=== PATIENT | female | born 1965 | race Caucasian/White ===

== ENCOUNTER → 2016-03-02 | Outpatient (CLI) | payer BC ==
[~2016-03-02] MED LIST: ADAL20KI; ASPI-391 PO; CHOL100010 PO; FOLI5CAP; HYDR200T5 PO; IBUP1CAP9 PO; LEVO75TA PO; OPTIRAY 320 IV PRN; POLY335019 PO; POTA99TA3 PO; PRAM0.129 PO; PREG1CAP28 PO; TOPI50TA24 PO
--- NOTE | 2016-03-02 15:32 | DIAGNOSTIC IMAGING REPORT ---
CT ABD/PELVIS IV AND ORAL CONT CLINICAL HISTORY: Generalized abdominal pain with abnormal laboratory values COMPARISON STUDY: None. TECHNIQUE: Following the IV administration of 100 mL of Optiray-320, CT scan of the abdomen and pelvis was performed from the lung bases to the proximal femurs. Images are reviewed in the axial, sagittal, and coronal planes. IV contrast was administered without complication. CT DOSE: 268.00 mGy.cm FINDINGS: Lower chest: The heart is normal in size and configuration, without pericardial effusion. The lung bases and pleural spaces are clear. There is a 2 cm mass at the level of the right cardiophrenic angle. 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 Liver: The contrast-enhanced liver is normal in size, contour, and attenuation. There is no intrahepatic biliary ductal dilatation. The hepatic veins and portal veins are patent. Gallbladder: Unremarkable. Spleen: Normal in size and attenuation. Pancreas: Unremarkable. Adrenal glands: Unremarkable. Kidneys: There is a 6 mm left renal hypodensity, consistent with a cyst. Bowel: There are no transition zones indicate bowel obstruction. There is no evidence of acute diverticulitis. The appendix appears normal. Peritoneum: There is no intraperitoneal free air or abdominal ascites. Vasculature: The abdominal aorta is normal in course and caliber. Adenopathy: None. Pelvic viscera: Several left ovarian follicles measuring up to 19 mm are visualized. Skeletal structures: No destructive osseous lesions are seen. IMPRESSION: 1. No evidence of bowel obstruction. No evidence of free air 2. No evidence of pathologic adenopathy 3. No acute inflammatory changes. No evidence of acute appendicitis. No evidence of diverticulitis. 4. 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 03/02/2016 3:30 PM Dictated Date/Time: 03/02/2016 3:22 PM
== END | disposition home or self-care (01) ==
LOC: C.CTS 14:51
PROVIDERS: ATTEND Internal Medicine Rheumatology
DX: R10.9 Unspecified abdominal pain (principal); R82.90 Unspecified abnormal findings in urine; N28.9 Disorder of kidney and ureter, unspecified; R22.2 Localized swelling, mass and lump, trunk

== ENCOUNTER → 2017-06-16 | Outpatient (CLI) | payer BC ==
[~2017-06-16] MED LIST changes: +CLR10 PO; -IBUP1CAP9 PO; +METO-217 PO; -OPTIRAY 320 IV PRN; -POLY335019 PO; +PRAM0.1212 PO; -PRAM0.129 PO; +PRED-301 PO; -PREG1CAP28 PO; +SENNTAB23 PO; +SPIR25TA PO; +TOPI1CAP27 PO; -TOPI50TA24 PO
--- NOTE | 2017-06-16 11:33 | DIAGNOSTIC IMAGING REPORT ---
MRI OF THE LUMBAR SPINE WITHOUT IV CONTRAST CLINICAL HISTORY: Low back pain. COMPARISON STUDY: Abdominal CT dated 03/02/2016. TECHNIQUE: MRI of the lumbar spine is performed utilizing various T1 and T2-weighted sequences in the axial and sagittal planes. IV contrast was not administered for this examination. FINDINGS: Lumbar spine: Vertebral body height and alignment are maintained throughout the lumbar spine. Tiny hemangiomas are seen in the bodies of T11, L1, L2, L3, L4, and L5. No destructive bony lesion is suggested. The transverse and spinous processes appear intact. There is no evidence of spondylolysis. Intervertebral discs: Degenerative disc desiccation is seen throughout the lumbar spine. There is only mild loss of height at L2-L3 and L3-L4. Spinal cord: The visualized spinal cord is normal in morphology and signal intensity. The conus medullaris terminates at the level of L1. The nerve roots of the cauda equina are normal in morphology. L1-L2: Unremarkable. L2-L3: There is minimal posterior disc bulge eccentric to the left. The central canal and neural foramina are patent. There are bilateral facet joint effusions. L3-L4: There is a left lateral disc bulge with annular fissure. This causes left-sided subarticular stenosis and may abut the exiting left L3 nerve root. The central canal and neural foramina are patent. Mild facet arthropathy is of no consequence. There are bilateral facet joint effusions. L4-L5: There is broad-based posterior disc bulge with annular fissure. In conjunction with hypertrophy of the ligamentum flavum, this causes mild central canal stenosis with a minimum AP canal diameter of 9 mm. There is bilateral subarticular stenosis, left greater than right. The disc bulge abuts the transiting bilateral L5 nerve roots. Facet arthropathy is of no consequence. The neural foramina are patent. Facet joint effusions are noted. L5-S1: There is a small posterior disc bulge. There is no significant acquired compromise of the central canal. The neural foramina are patent. Mild facet arthropathy is of no consequence. Sacrum: The visualized sacrum is normal in morphology and signal intensity. Soft tissues: The paraspinous soft tissues are within normal limits. The imaged retroperitoneal structures are grossly unremarkable but incompletely evaluated. IMPRESSION: 1. Mild multilevel lumbosacral spondylosis as above. There is mild acquired compromise of the central canal at L4-L5. See discussion for detailed level by level analysis. 2. No destructive bony process is identified. Dictated: 06/16/2017 10:10 AM Transcribed: 06/16/2017 11:33 AM [email or web address] Electronically signed by: Alex Jones M.D. 06/16/2017 11:50 AM Dictated Date/Time: 06/16/2017 10:10 AM
== END | disposition home or self-care (01) ==
LOC: C.MRI 09:26
PROVIDERS: ATTEND Internal Medicine Rheumatology
DX: R29.2 Abnormal reflex (principal); M54.5 Low back pain; M06.09 Rheumatoid arthritis without rheumatoid factor, multiple sites; M35.00 Sjogren syndrome, unspecified; Z51.81 Encounter for therapeutic drug level monitoring; E55.9 Vitamin D deficiency, unspecified; R53.1 Weakness; M47.817 Spondylosis without myelopathy or radiculopathy, lumbosacral region

== ENCOUNTER → 2017-10-04 | Outpatient (CLI) | payer BC ==
[~2017-10-04] MED LIST changes: -FOLI5CAP; +GABA-113 PO; -HYDR200T5 PO; -METO-217 PO; +VRP40 PO
[2017-10-04 09:34] LABS: BASO % 0.4 %; BASO ABS # 0.02 K/uL (0-0.2); EOS % 0.2 %; EOS ABS # 0.01 K/uL (0-0.5); HEMATOCRIT 39.2 % (37-47); HEMOGLOBIN 12.6 g/dL (12.0-16.0); IG# 0.01 K/uL (0.00-0.02); LYMPH % 40.9 %; LYMPH ABS # 1.82 K/uL (1.2-3.4); MEAN CELL VOLUME 88.3 fL (80-100); MEAN CORPUSCULAR HEMOGLOBIN 28.4 pg (25-34); MONO % 11.2 %; NEUT % 47.1 %; NEUT ABS # 2.09 K/uL (1.4-6.5); PLATELET COUNT 300 K/uL (130-400); RED CELL DISTRIBUTION WIDTH CV 14.1 % (11.5-14.5); RED CELL DISTRIBUTION WIDTH SD 46.1 fL (36.4-46.3); WHITE BLOOD COUNT 4.45 K/uL (4.8-10.8)
[2017-10-04 09:58] LABS: MEAN CORPUSCULAR HGB CONC 32.1 g/dl (32-36)
== END | disposition home or self-care (01) ==
LOC: C.LAB 09:13
PROVIDERS: ATTEND Physician Assistant
DX: Z01.812 Encounter for preprocedural laboratory examination (principal)

== ENCOUNTER 2021-10-18 11:02 | Inpatient (IN) ==
[2021-10-18] MEDS ORDERED: MoRPHine SULFATE 4 MG/ML 1 ML CARP\\VIAL IV STA (11:31)
[2021-10-18] MEDS ORDERED: ONDANSETRON INJ 2 MG/ML 2 ML VIAL IV STA (11:31)
[2021-10-18] MEDS ORDERED: SODIUM CHLORIDE 0.9% 500 ML IV STA (11:31)
--- NOTE | 2021-10-18 11:33 | Emergency Department Note ---
Impression & Plan Bulging lumbar disc ADMIT ED Provider Note HPI: The patient is a 56-year-old female who presents to the emergency department with a chief complaint of left hip pain and back pain. This is the patient's second presentation in the past 3 days for the same pain. Patient had CT imaging performed on her last visit this past Tuesday, this did not show any evidence of acute fracture, did show evidence of degenerative disease in the lumbar spine. Patient states that her pain is acutely worsened over the past several days. Patient states that she is having some issues with incomplete voiding. She denies any recent fevers. On arrival to the ED the patient is in mild distress secondary to pain but she is otherwise hemodynamically stable. ROS: -MSK: Lower back pain *10 point review systems was conducted and is otherwise negative unless stated above *Outpatient medications and allergy history reviewed PE: General: Alert, NAD thin build HEENT: Normocephalic, atraumatic Eyes: Extraocular eye movement is intact, no scleral erythema Pulmonary: Clear to auscultation bilaterally, no wheezing Cardio: Regular rate and rhythm GI: Abdomen is soft, nontender : No suprapubic tenderness MSK: No evidence of trauma or malformation of the extremities, no edema, no step-off deformity of the lumbar spine is palpated, no fluctuant mass Skin: No evidence of rash Neuro: Alert, no focal deficits Psychiatric: Cooperative surveillance system monitor: - An order was placed for continuous cardiac monitoring - Patient was noted to be in sinus rhythm with a rate of 80 Medical Decision Making: Patient previously had CT imaging performed of the lumbar spine and the left hip that did not show any evidence of fracture, there was evidence of degenerative disease of the lumbar spine. Given the patient's intractable pain I did obtain MRI imaging of the lumbar spine that shows evidence of disc protrusion at L2 and L3 level, also evidence of canal stenosis at L4/L5. Patient was given morphine and Dilaudid here in the ED for pain. Her lab work does not show any brittney kocytosis, she is afebrile, no evidence of an abscess on MRI imaging. Patient does have motor and sensory function intact distally in the lower extremities. I discussed the above findings with on-call spinal surgery, Dr. Davidson, who is in agreement to admit the patient for evaluation for possible surgical intervention. Patient states that she prefers to be admitted to have this done. She was therefore admitted in stable condition to the service of Dr. Davidson for further care. Diagnosis: 1. Intractable lower back pain 2. Lumbar disc disease 3. Spinal stenosis Disposition: Admission Burt Lawrence DO Emergency Medicine Past Med/Surg History Medical History Acute dystonic reaction due to drugs Cervical facet syndrome Chronic constipation Fibromyalgia Hemicrania continua Hx of iron deficiency anemia Hx of peptic ulcer Hypertension Hypothyroidism Migraine headache Neutropenia Occipital neuralgia Osteoarthritis Renal insufficiency Restless leg syndrome Restless leg syndrome Rheumatoid arthritis Right trigeminal neuralgia Sjogren's disease Small fiber neuropathy Vitamin D deficiency Surgical History H/O wisdom tooth extraction H/O: hysterectomy History of bladder repair surgery X2 History of breast biopsy BENIGN-LEFT SIDE History of carpal tunnel release of both wrists History of colonoscopy History of dilation and curettage History of esophagogastroduodenoscopy (EGD) History of foot surgery RT BIG TOE REPAIR History of hip surgery LEFT WITH BONE GRAFT History of left oophorectomy History of surgery NERVE BLOCK FOR TRIGEMINAL NEURALGIA Hx of LASIK Family History Mother Hypertension Grandfather (Paternal) Laryngeal cancer Grandmother (Maternal) Heart disease Uncle Heart disease Other No family history of adverse response to anesthesia No family history of bleeding disorder Social History Smoking Status: Never smoker Second Hand Exposure: No; Hx Alcohol Use: No Preferred Language: Turkish Visual Impairment: No Limitations Hearing Ability: Normal Supervisor Front Required: No Beliefs That Will Affect Care: None marital status: Current Living Situation: Spouse current occupational status: retired and disabled Feels Safe at Home: Yes Assistive Devices: Contacts Allergies Allergies Allergy/AdvReac Type Severity Reaction Status Date / Time leflunomide Allergy Intermediate had a Verified 10/18/21 16:27 cervical dystonic episode tetanus toxoid, adsorbed Allergy Intermediate fever and Verified 10/18/21 16:27 streaking up the arm Home Meds Home Medications Medication Instructions Recorded Confirmed spironolactone 25 mg tablet 75 mg PO QAM 10/31/17 10/18/21 (Aldactone) lisinopril 5 mg tablet 5 mg PO QAM 02/16/18 10/18/21 levothyroxine 50 mcg tablet 50 mcg PO QAM 01/20/19 10/18/21 pantoprazole 40 mg tablet,delayed 40 mg PO QAM 11/21/19 10/18/21 release (Protonix) golimumab 100 mg/mL subcutaneous 100 mg subcut MONTHLY 10/30/20 10/18/21 pen injector (Simponi) methocarbamol 500 mg tablet 500 mg PO BID PRN Muscle Pain 12/16/20 10/18/21 tramadol 50 mg tablet 50 mg PO DAILY PRN Pain 12/16/20 10/18/21 carbamazepine 100 mg 100 mg PO BID PRN TRIGEMINAL 02/05/21 10/18/21 tablet,extended release,12 hr NEURALGIA (Tegretol XR) potassium 99 mg tablet 99 mg PO QAM 02/05/21 10/18/21 pramipexole 1 mg tablet 1 mg PO HS 02/05/21 10/18/21 cholecalciferol (vitamin D3) 50 200 mcg PO QAM 10/18/21 10/18/21 mcg (2,000 unit) tablet (Vitamin D3) folic acid 1 mg tablet 1 mg PO QAM 10/18/21 10/18/21 gabapentin 300 mg capsule See Rx Instructions .Route .COMPLEX 10/18/21 10/18/21 hydroxychloroquine 200 mg tablet 200 mg PO QAM 10/18/21 10/18/21 indomethacin 25 mg capsule See Rx Instructions .Route .COMPLEX 10/18/21 10/18/21 topiramate 50 mg tablet 150 mg PO QAM 10/18/21 10/18/21 Previous Rx's Medication Instructions Recorded oxycodone 5 mg tablet 5 mg PO Q6H PRN pain #12 tabs 10/16/21 prednisone 20 mg tablet See Rx Instructions .Route 10/16/21 .COMPLEX #13 tabs Results & Data (ED) Vital Signs Vital Signs - 24 hr 10/18/21 11:02 10/18/21 12:02 10/18/21 14:20 Temperature 36.8 C Temperature Source Oral Pulse Rate 87 Pulse Rate [Left] 86 Pulse Rhythm [Left] Regular Pulse Strength [Left] Normal Respiratory Rate 16 18 Respiratory Effort / Characteristics Non-Labored Respiratory Depth Normal Respiratory Pattern Regular Blood Pressure 131/81 Blood Pressure [Left Arm] 142/97 H Blood Pressure Mean 97 Blood Pressure Mean [Left Arm] 112 Blood Pressure Position [Left Arm] Lying Pulse Oximetry 100 98 98 Oxygen Delivery Method Room Air Room Air Sepsis Recent Fever Within 48 Hours No Sepsis New/Unexplained Change in Mental Status No Sepsis Action Taken by Nursing No Action Required 10/18/21 15:48 Temperature Temperature Source Pulse Rate Pulse Rate [Left] 78 Pulse Rhythm [Left] Pulse Strength [Left] Respiratory Rate 18 Respiratory Effort / Characteristics Non-Labored Spontaneous Respiratory Depth Normal Respiratory Pattern Regular Blood Pressure Blood Pressure [Left Arm] 114/68 Blood Pressure Mean Blood Pressure Mean [Left Arm] 83 Blood Pressure Position [Left Arm] Sitting Pulse Oximetry 98 Oxygen Delivery Method Room Air Sepsis Recent Fever Within 48 Hours Sepsis New/Unexplained Change in Mental Status Sepsis Action Taken by Nursing Laboratory Data Result diagrams: 10/18/21 Unknown 10/18/21 Unknown Lab Results 10/18/21 10/18/21 10/18/21 Range/Units 15:12 Unknown Unknown WBC 7.06 (4.8-10.8) K/ul RBC 4.08 (3.93-5.22) M/uL Hgb 11.7 L (12.0-16.0) g/dl Hct 36.6 (34.1-44.9) % MCV 89.7 (80.0-100.0) fL MCH 28.7 (25.0-34.0) pg MCHC 32.0 (32.0-36.0) g/dL RDW Std Deviation 43.5 (36.4-46.3) fL RDW Coeff of Marianne 13.3 (11.5-14.5) % Plt Count 263 (130-400) K/uL MPV 10.0 (9.4-12.3) fL Immature Gran % (Auto) 0.4 % Neut % (Auto) 77.8 % Lymph % (Auto) 17.6 % [place] % (Auto) 3.8 % Eos % (Auto) 0.1 % Baso % (Auto) 0.3 % Neut # (Auto) 5.49 (1.4-6.5) K/uL Lymph # (Auto) 1.24 (1.2-3.4) K/uL [place] # (Auto) 0.27 (0.24-0.82) K/uL Eos # (Auto) 0.01 (0-0.50) K/uL Baso # (Auto) 0.02 (0-0.2) K/uL Immature Gran # (Auto) 0.03 H (0.00-0.02) K/uL Sodium 140 (136-145) mmol/L Potassium 3.2 L (3.5-5.1) mmol/L Chloride 109 H (98-107) mmol/L Carbon Dioxide 25 (21-32) mmol/L Anion Gap 6 (3-11) BUN 21 (6-23) mg/dl Creatinine 0.91 (0.6-1.2) mg/dl Est Cr Clr Drug Dosing 55.9 ml/min Est GFR ( Amer) 82.9 ml/min Est GFR (Non-Af Amer) 71.5 ml/min BUN/Creatinine Ratio 23.1 H (10-20) Glucose 96 (70-99(Fasting)) mg/dl Calcium 8.9 (8.5-10.1) mg/dl Total Bilirubin 0.5 (0.2-1.0) mg/dl AST 15 (13-39) U/L ALT 11 (7-52) U/L Alkaline Phosphatase 41 (34-104) U/L Total Protein 6.7 (6.0-8.3) gm/dl Albumin 4.0 (3.4-5.0) gm/dl Globulin 2.7 (2.5-4.0) gm/dl Albumin/Globulin Ratio 1.5 (0.9-2) Lipase 36 (11-82) U/L Urine Color Urine Appearance (Clear) Urine pH (4.5-7.5) Ur Specific [place] (1.000-1.030) Urine Protein (Negative) Urine Glucose (UA) (Negative) Urine Ketones (Negative) Urine Blood (Negative) Urine Nitrite (Negative) Urine Bilirubin (Negative) Urine Urobilinogen (Negative) Ur Leukocyte Esterase (Negative) Urine WBC (Auto) (0-5) /hpf Urine RBC (Auto) (0-4) /hpf U Hyaline Cast (Auto) (0-5) /lpf U Epithel Cells (Auto) (0-5) /lpf Urine Bacteria (Auto) (Negative) SARS-CoV-2, RNA, NAAT NEGATIVE (NEGATIVE) 10/18/21 Range/Units Unknown WBC (4.8-10.8) K/ul RBC (3.93-5.22) M/uL Hgb (12.0-16.0) g/dl Hct (34.1-44.9) % MCV (80.0-100.0) fL MCH (25.0-34.0) pg MCHC (32.0-36.0) g/dL RDW Std Deviation (36.4-46.3) fL RDW Coeff of Marian[place] (11.5-14.5) % Plt Count (130-400) K/uL MPV (9.4-12.3) fL Immature Gran % (Auto) % Neut % (Auto) % Lymph % (Auto) % [place] % (Auto) % Eos % (Auto) % Baso % (Auto) % Neut # (Auto) (1.4-6.5) K/uL Lymph # (Auto) (1.2-3.4) K/uL [place] # (Auto) (0.24-0.82) K/uL Eos # (Auto) (0-0.50) K/uL Baso # (Auto) (0-0.2) K/uL Immature Gran # (Auto) (0.00-0.02) K/uL Sodium (136-145) mmol/L Potassium (3.5-5.1) mmol/L Chloride (98-107) mmol/L Carbon Dioxide (21-32) mmol/L Anion Gap (3-11) BUN (6-23) mg/dl Creatinine (0.6-1.2) mg/dl Est Cr Clr Drug Dosing ml/min Est GFR ( Amer) ml/min Est GFR (Non-Af Amer) ml/min BUN/Creatinine Ratio (10-20) Glucose (70-99(Fasting)) mg/dl Calcium (8.5-10.1) mg/dl Total Bilirubin (0.2-1.0) mg/dl AST (13-39) U/L ALT (7-52) U/L Alkaline Phosphatase (34-104) U/L Total Protein (6.0-8.3) gm/dl Albumin (3.4-5.0) gm/dl Globulin (2.5-4.0) gm/dl Albumin/Globulin Ratio (0.9-2) Lipase (11-82) U/L Urine Color Yellow Urine Appearance Clear (Clear) Urine pH 5.5 (4.5-7.5) Ur Specific [place] 1.014 (1.000-1.030) Urine Protein Negative (Negative) Urine Glucose (UA) Negative (Negative) Urine Ketones Negative (Negative) Urine Blood 1+ H (Negative) Urine Nitrite Negative (Negative) Urine Bilirubin Negative (Negative) Urine Urobilinogen Negative (Negative) Ur Leukocyte Esterase Negative (Negative) Urine WBC (Auto) 1-5 (0-5) /hpf Urine RBC (Auto) 0-4 (0-4) /hpf U Hyaline Cast (Auto) 0 (0-5) /lpf U Epithel Cells (Auto) 0-5 (0-5) /lpf Urine Bacteria (Auto) Negative (Negative) SARS-CoV-2, RNA, NAAT (NEGATIVE) Administered Medications Discontinued Medications Hydromorphone HCl (Hydromorphone Inj 0.5 Mg/0.5 Ml Syr) 0.5 mg IV NOW STA Stop: 10/18/21 14:13 Last Admin: 10/18/21 14:17 Dose: 0.5 mg Documented By: SD Sodium Chloride (Nss) 500 mls @ 999 mls/hr IV .Q31M STA Stop: 10/18/21 12:01 Last Infusion: 10/18/21 13:34 Dose: 0 mls/hr Documented By: Admin: 10/18/21 11:49 Dose: 999 mls/hr Documented By: SD Morphine Sulfate (Morphine Sulfate 4 Mg/Ml 1 Ml Carp\Vial) 4 mg IV NOW STA Stop: 10/18/21 11:32 Last Admin: 10/18/21 11:48 Dose: 4 mg Documented By: SD Ondansetron HCl (Ondansetron Inj 2 Mg/Ml 2 Ml Vial) 4 mg IV NOW STA Stop: 10/18/21 11:32 Last Admin: 10/18/21 11:48 Dose: 4 mg Documented By: SD Imaging Data Radiologist's Impression: Lumbar Spine MRI 10/18/21 11:30 MRI OF THE LUMBAR SPINE WITHOUT CONTRAST CLINICAL HISTORY: Left hip pain. back pain, urinary incontinence. COMPARISON STUDY: Lumbar spine MRI June 16, 2017. Lumbar spine CT October 16, 2021. TECHNIQUE: Utilizing a 1.5 Candace magnet and dedicated coil, multiplanar, multiecho imaging of the lumbar spine was performed without IV contrast. FINDINGS: For purposes of numbering on this exam, the L5-S1 disc space is assigned to axial image 23 of 26. Therefore millimeters of anterolisthesis of L4 and L5. This is due to facet arthrosis. Vertebral body heights are maintained. No suspicious marrow replacement. Several T1 and T2 hyperintense lesions reflect hemangiomas. There is no intracanalicular mass or fluid collection. The conus terminates at the mid L1 level. Paravertebral soft tissues are unremarkable. L1-2: The central canal and neural foramen are patent. L2-3: There is disc space narrowing. There is disc bulge with a superimposed left paracentral disc extrusion with superior subligamentous migration versus sequestered fragment. The disc herniation or fragment measures 1.2 x 0.7 x 0.9 cm. There is severe narrowing of the left lateral recess. This also results in moderate narrowing of the proximal aspect of the left neural foramen. The right neural foramen is patent. There is mild to moderate central canal stenosis. L3-4: Disc bulge is noted. There is moderate facet arthrosis. There is minimal narrowing of the central canal. Moderate bilateral neural foraminal stenosis is present. L4-5: Severe facet arthrosis results in minimal anterolisthesis. There is ligamentous hypertrophy with mild disc bulge. There is mild to moderate central canal stenosis. Patent AP diameter canal is 6 mm. There is severe right and mild left neural foraminal stenosis. L5-S1: There is disc bulge. Facet arthrosis is present. Central canal is patent. Neural foramen are patent. IMPRESSION: 1. Large left paracentral disc extrusion versus sequestered fragment at L2-L3 with superior subligamentous migration. This results in severe narrowing of the left lateral recess and moderate narrowing of the left neural foramen at this level. 2. Severe multilevel facet arthrosis, most pronounced at L4-L5. This results in mild anterolisthesis. Mild to moderate central canal stenosis and severe narrowing of the right neural foramen at L4-L5. 3. Additional multilevel degenerative changes as above. ACT 112: Negative or not required by law. Electronically signed by: Sandeep Fuentes M.D. 10/18/2021 3:02 PM Discharge Plan Visit Data Chief Complaint: Back Injury/Pain Stated Complaint: LOWER BACK PAIN ED Provider: Burt Lawrence Discharge Problem: Bulging lumbar disc Patient Disposition: Admitted As Inpatient Forms Stand Alone Forms: [facility] Prescriptions Prescriptions: No Action lisinopril 5 mg tablet 5 mg PO QAM spironolactone [Aldactone] 25 mg tablet 75 mg PO QAM methocarbamol 500 mg tablet 500 mg PO BID PRN (Reason: Muscle Pain) tramadol 50 mg tablet 50 mg PO DAILY PRN (Reason: Pain) Simponi 100 mg/mL pen injector 100 mg subcut MONTHLY Label Comments: TAKES ON 7TH EVERY MONTH Rx Instructions: take on 7th of every month pantoprazole [Protonix] 40 mg tablet,delayed release (DR/EC) 40 mg PO QAM levothyroxine 50 mcg tablet 50 mcg PO QAM carbamazepine [Tegretol XR] 100 mg Tablet Extended Release 12 Hr 100 mg PO BID PRN (Reason: TRIGEMINAL NEURALGIA) potassium 99 mg Tablet 99 mg PO QAM pramipexole 1 mg tablet 1 mg PO HS topiramate 50 mg tablet 150 mg PO QAM indomethacin 25 mg capsule See Rx Instructions .ROUTE .COMPLEX Rx Instructions: take 2 capsules in the morning with food,1 capsule at lunch with food and 2 capsules in evening with food hydroxychloroquine 200 mg tablet 200 mg PO QAM gabapentin 300 mg capsule See Rx Instructions .ROUTE .COMPLEX Rx Instructions: take 1 capsule orally in the morning and 2 capsules at night cholecalciferol (vitamin D3) [Vitamin D3] 50 mcg (2,000 unit) Tablet 200 mcg PO QAM Rx Instructions: 4 tablet dose folic acid 1 mg Tablet 1 mg PO QAM oxycodone 5 mg tablet 5 mg PO Q6H PRN (Reason: pain) Qty: 12 0RF Rx Instructions: Initial Treatment prednisone 20 mg tablet See Rx Instructions .ROUTE .COMPLEX Qty: 13 0RF Rx Instructions: 60mg x 2 days, 40mg x 2 days, 20mg x 2 days, 10mg x 2 days Referrals Referrals: Cesar Haq MD [Primary Care Provider] -
[2021-10-18 12:22] LABS: Basophils # (auto) 0.02 K/uL (0-0.2); Basophils % (auto) 0.3 %; Eosinophils # (auto) 0.01 K/uL (0-0.50); Eosinophils % (auto) 0.1 %; Hematocrit (blood only) 36.6 % (34.1-44.9); Hemoglobin 11.7 g/dl (12.0-16.0); Immature Granulocytes # (auto) 0.03 K/uL (0.00-0.02); Immature Granulocytes % (auto) 0.4 %; Lymphocytes # (auto) 1.24 K/uL (1.2-3.4); Lymphocytes % (auto) 17.6 %; Mean Corpuscular Hemoglobin 28.7 pg (25.0-34.0); Mean Corpuscular Volume 89.7 fL (80.0-100.0); Monocytes # (auto) 0.27 K/uL (0.24-0.82); Monocytes % (auto) 3.8 %; Neutrophils # (auto) 5.49 K/uL (1.4-6.5); Neutrophils % (auto) 77.8 %; Platelet Count 263 K/uL (130-400); RDW Coefficient of Variation 13.3 % (11.5-14.5); RDW Standard Deviation 43.5 fL (36.4-46.3); Red Blood Count 4.08 M/uL (3.93-5.22); White Blood Count 7.06 K/ul (4.8-10.8)
[2021-10-18 12:41] LABS: Albumin Globulin Ratio 1.5 (0.9-2); BUN Creatinine Ratio 23.1 (10-20); Bilirubin,Total 0.5 mg/dl (0.2-1.0); Calcium 8.9 mg/dl (8.5-10.1); Creatinine Clr Calc Pharmacy 55.9 ml/min; Est GFR (African American) 82.9 ml/min; Est GFR (Non-African American) 71.5 ml/min; Globulin 2.7 gm/dl (2.5-4.0); Potassium 3.2 mmol/L (3.5-5.1); Total Protein 6.7 gm/dl (6.0-8.3)
[2021-10-18] MEDS ORDERED: HYDROmorphone INJ 0.5 MG/0.5 ML SYR IV STA (14:12)
[2021-10-18 14:32] LABS: Appearance Urine Clear (Clear); Bacteria Urine Automated Negative (Negative); Bilirubin Urine Negative (Negative); Blood Urine 1+ (Negative); Cast Urine Automated 0 /lpf (0-5); Color Urine Yellow; Epithelial Cell Urine Auto 0-5 /lpf (0-5); Glucose Urine UA Negative (Negative); Ketones Urine Negative (Negative); Leukocyte Esterase Urine Negative (Negative); Nitrite Urine Negative (Negative); Protein Urine Negative (Negative); RBC Urine Automated 0-4 /hpf (0-4); Specific Gravity Urine 1.014 (1.000-1.030); Urobilinogen Urine Negative (Negative); pH Urine 5.5 (4.5-7.5)
--- NOTE | 2021-10-18 15:04 | Magnetic Resonance Report ---
MRI OF THE LUMBAR SPINE WITHOUT CONTRAST CLINICAL HISTORY: Left hip pain. back pain, urinary incontinence. COMPARISON STUDY: Lumbar spine MRI June 16, 2017. Lumbar spine CT October 16, 2021. TECHNIQUE: Utilizing a 1.5 Candace magnet and dedicated coil, multiplanar, multiecho imaging of the [facility] spine was performed without IV contrast. FINDINGS: For purposes of numbering on this exam, the L5-S1 disc space is assigned to axial image 23 of 26. The refore millimeters of anterolisthesis of L4 and L5. This is due to facet arthrosis. Vertebral body he ights are maintained. No suspicious marrow replacement. Several T1 and T2 hyperintense lesions reflec t hemangiomas. There is no intracanalicular mass or fluid collection. The conus terminates at the mid L1 level. Paravertebral soft tissues are unremarkable. L1-2: The central canal and neural foramen are patent. L2-3: There is disc space narrowing. There is disc bulge with a superimposed left paracentral disc ex trusion with superior subligamentous migration versus sequestered fragment. The disc herniation or fr agment measures 1.2 x 0.7 x 0.9 cm. There is severe narrowing of the left lateral recess. This also r esults in moderate narrowing of the proximal aspect of the left neural foramen. The right neural fora men is patent. There is mild to moderate central canal stenosis. L3-4: Disc bulge is noted. There is moderate facet arthrosis. There is minimal narrowing of the centr al canal. Moderate bilateral neural foraminal stenosis is present. L4-5: Severe facet arthrosis results in minimal anterolisthesis. There is ligamentous hypertrophy wit h mild disc bulge. There is mild to moderate central canal stenosis. Patent AP diameter canal is 6 mm . There is severe right and mild left neural foraminal stenosis. L5-S1: There is disc bulge. Facet arthrosis is present. Central canal is patent. Neural foramen are p atent. IMPRESSION: 1. Large left paracentral disc extrusion versus sequestered fragment at L2-L3 with superior subligame ntous migration. This results in severe narrowing of the left lateral recess and moderate narrowing o f the left neural foramen at this level. 2. Severe multilevel facet arthrosis, most pronounced at L4-L5. This results in mild anterolisthesis. Mild to moderate central canal stenosis and severe narrowing of the right neural foramen at L4-L5. 3. Additional multilevel degenerative changes as above. ACT 112: Negative or not required by law. Electronically signed by: Sandeep Fuentes M.D. 10/18/2021 3:02 PM
[2021-10-18] MEDS ORDERED: ACETAMINOPHEN 1,000 MG/100 ML VIAL IV PRN (16:12)
[2021-10-18] MEDS ORDERED: ACETAMINOPHEN 500 MG TAB PO PRN (16:12)
[2021-10-18] MEDS ORDERED: LORazepam 0.5 MG in SYRINGE 0.25 ML IV PRN (16:12)
[2021-10-18] MEDS ORDERED: HYDROmorphone INJ 1 MG/ML SYRINGE IV PRN (16:12)
[2021-10-18] MEDS ORDERED: oxyCODONE HCL IR 5 MG TAB (IMMEDIATE RELEASE) PO PRN (16:12)
[2021-10-18] MEDS ORDERED: NALOXONE HCL 0.4 MG/1 ML VIAL/CARP IV PRN (16:12)
[2021-10-18] MEDS ORDERED: MAGNESIUM HYDROXIDE SUSP 30 ML UDC PO PRN (16:12)
[2021-10-18] MEDS ORDERED: ONDANSETRON INJ 2 MG/ML 2 ML VIAL IV PRN (16:12)
[2021-10-18] MEDS ORDERED: ONDANSETRON 4 MG OD TAB PO PRN (16:12)
[2021-10-18] MEDS ORDERED: PROMETHAZINE HCL 12.5 MG in SODIUM CHLORIDE 0.9% 50 ML IV PRN (16:12)
[2021-10-18] MEDS ORDERED: traMADol HCL 50 MG TABLET PO PRN (16:12)
[2021-10-18] MEDS ORDERED: LORazepam 0.5 MG TAB PO PRN (16:12)
[2021-10-18] MEDS ORDERED: METOCLOPRAMIDE HCL INJ 5 MG/ML 2 ML VIAL IV PRN (16:12)
[2021-10-18] MEDS ORDERED: POTASSIUM CHLORIDE CRTAB 20 MEQ TABCR PO ONE (16:53)
--- NOTE | 2021-10-18 17:48 | Consultation ---
Date of Consultation October 18, 2021 Assessment & Plan (1) Acute pain of left hip: (2) Lumbar disc herniation with radiculopathy: (3) Rheumatoid arthritis: (4) Sjogren's disease: (5) Hypertension: Plan This is a 56-year-old female who has significant past medical history of rheu matoid arthritis, Sjogren's syndrome, small fiber neuropathy, fibromyalgia, restless leg syndrome, history of occipital and trigeminal neuralgia, HTN, hypothyroidism, history of PUD who presents to ER secondary to complaint of left hip pain. MRI L spine: Large left paracentral disc extrusion versus sequestered fragment at L2-L3 with superior subligamentous migration. This results in severe narrowing of the left lateral recess and moderate narrowing of the left neural foramen at this level. 2. Severe multilevel facet arthrosis, most pronounced at L4-L5. This results in mild anterolisthesis. Mild to moderate central canal stenosis and severe narrowing of the right neural foramen at L4-L5. Acute left hip pain Lumbar disc herniation with radiculopathy admit to med/surg Orthopedic spine on board and attending Dr. Davidson consulted for medical management pain control per Dr. Davidson pt able to perform ~ to 4 METS of activity without CP or SOB will await eval by Dr. Davidson, if surgical procedure recommended will order CXR and ECG Hypokalemia replete follow bmp in a.m. Rheumatoid arthritis Sjogren disease follows [facility] Rheum Dr. Burris daily plaquenil (held by Dr. Davidson) and monthly inj of golimumab HTN Continue lisinopril and Aldactone Monitor blood pressure Small fiber neuropathy Fibromyalgia History of occipital and trigeminal neuralgia Hemicrania continua Patient on gabapentin, indomethacin and Topamax as outpatient Follows multiple specialists Hx of MRSA contact precautions ordered Hypothyroidism Continue levothyroxine RLS Continue pramipexole DVT prophylaxis: SCDs per primary Dispo: Med/surg per primary FULL CODE PCP: Dr. Haq ([place]) Pt was seen and examined in collaboration with Dr. Luis, please see addendum Thank you for this consultation. We will follow the patient with you during their hospital stay. You can reach a member of the [facility] Hospitalist Team 13/09 via hospitalist role on tiger text. Supervising Physician Co-Signing Physician Notes 56 yo F with severe left hip pain presents with recurrent intermittent pain of varying severity. She was seen in the ER on Tuesday night and was diagnosed with an acute lumbar disc herniation. She went home with oxycodone and prednisone and pain was ok but began having fecal incontinence and inconsistent bladder dysfunction with incomplete bladder emptying. More severe left hip pain accompanied this. Chronic rheumatoid arthritis with no history of heart disease or osteoporosis. Active in her garden, doesn't exercise regularly. Pain limits her ability to exercise but she can vacuum and also walk up stairs without chest pain or shortness of breath. No prior issues with anesthesia for multiple previous surgeries. Pain in her left hip feels constant, searing with bad sharp wincing pains, better with flexing forward. Cannot sit or walk at this time. Best when standing at bedside and leaning over at 90 degrees of flexion resting elbows on the bed. Physical exam reveals normal heart and lung exam. No paraspinal TTP. No gluteal TTP. +SLR test on the left. Cannot elicit reflex in left knee or S1, but normal in right knee and achilles. Sensation intact but decreased on left entire leg as compared with the right. 5/5 strength present in lower extremities including hip flexion/extension, knee flexion extension and dorsi/plantarflexion. L spine MRI confirms the acute disc protrusion. Overall she is experiencing an acute disc extrusion in the lumbar spine in addition to spinal stenosis symptoms. Her pain is poorly controlled and with newly developed neurologic deficits, she is coming in for surgical evaluation. Will give trial of benzo/NSAID, and cont narcotics for additional pain control as needd. All medications were reviewed and are updated. Thank you for this consultation. Alisa Luis DO [facility] Hospitalist History of Present Illness Requesting Physician: Dr. Davidson Reason for Consultation: Medical management Attending Physician: Dr. Davidson History of Present Illness This is a 56-year-old female who has significant past medical history of rheumatoid arthritis, Sjogren's syndrome, small fiber neuropathy, fibromyalgia, restless leg syndrome, history of occipital and trigeminal neuralgia, HTN, hypothyroidism, history of PUD who presents to ER secondary to complaint of left hip pain. Of significance patient was seen in ER 2 nights ago and diagnosed with acute lumbar disc herniation. She went home with oxycodone and prednisone. She returns today after having episode of fecal incontinence and bladder dysfunction with inability to completely empty. Her pain is located on her left lateral leg in the hip region and radiating to her groin. It is constant but waxes and wanes in severity. Is worse with lying down and better with sitting up and standing. She describes it as a sharp shooting and burning pain. The oxycodone has seemed to help her symptoms slightly. She recalls having a similar feeling to this pain when she was diagnosed with an endochondroma. She denies any recent illness. She denies any fever, chills, sweats, lightheadedness, dizziness, chest pain, shortness of breath, cough, nausea, vomiting, abdominal pain, dysuria, melena or hematochezia. She denies any prior issues with anesthesia. Prior to onset of pain she elicits ability to ambulate 1 flight of stairs without exhibiting chest pain or shortness of breath. Her appetite is otherwise been normal. She has a trip planned to [facility] in the middle of October and is hoping she is able to still go. In ER an MRI was obtained which revealed a large left paracentral disc extrusion versus sequestered fragment at L2-L3 with superior subligamentous migration which resulted in severe narrowing of the left lateral recess and moderate narrowing of the left neuroforamen at this level. Also noted was severe facet arthrosis most pronounced at L4-L5 resulting in mild anterior listhesis. Mild to moderate central canal stenosis and severe narrowing of the right neural foramen at L4-L5. Patient has been admitted by Dr. Davidson orthopedic spine surgeon we have been consulted for medical management. She has history of chronic pain in setting of rheumatoid arthritis. This is managed with daily Plaquenil and monthly injections of golimumab. She sees engine research engineer and Robert Burris. Per PCP is Dr. Haq. She has hx of HTN controlled on lisinopril and aldactone. She has hx of chronic pain in setting of small fiber neuropathy, trigeminal neuralgia, fibromyalgia, and migraines. She takes gabapentin and topamax for this. She has is on chronic indomethacin therapy for hemicrania continua. She also takes a daily PPI due to hx of PUD. Allergies Allergy/AdvReac Type Severity Reaction Status Date / Time leflunomide Allergy Intermediate had a Verified 10/18/21 16:27 cervical dystonic episode tetanus toxoid, adsorbed Allergy Intermediate fever and Verified 10/18/21 16:27 streaking up the arm Home Medications Medication Instructions Recorded Confirmed Type spironolactone 25 mg tablet 75 mg PO QAM 10/31/17 10/18/21 History (Aldactone) lisinopril 5 mg tablet 5 mg PO QAM 02/16/18 10/18/21 History levothyroxine 50 mcg tablet 50 mcg PO QAM 01/20/19 10/18/21 History pantoprazole 40 mg tablet,delayed 40 mg PO QAM 11/21/19 10/18/21 History release (Protonix) golimumab 100 mg/mL subcutaneous 100 mg subcut MONTHLY 10/30/20 10/18/21 History pen injector (Simponi) methocarbamol 500 mg tablet 500 mg PO BID PRN Muscle Pain 12/16/20 10/18/21 History tramadol 50 mg tablet 50 mg PO DAILY PRN Pain 12/16/20 10/18/21 History carbamazepine 100 mg 100 mg PO BID PRN TRIGEMINAL 02/05/21 10/18/21 History tablet,extended release,12 hr NEURALGIA (Tegretol XR) potassium 99 mg tablet 99 mg PO QAM 02/05/21 10/18/21 History pramipexole 1 mg tablet 1 mg PO HS 02/05/21 10/18/21 History oxycodone 5 mg tablet 5 mg PO Q6H PRN pain #12 tabs 10/16/21 10/18/21 Rx prednisone 20 mg tablet See Rx Instructions .Route 10/16/21 10/18/21 Rx .COMPLEX #13 tabs cholecalciferol (vitamin D3) 50 200 mcg PO QAM 10/18/21 10/18/21 History mcg (2,000 unit) tablet (Vitamin D3) folic acid 1 mg tablet 1 mg PO QAM 10/18/21 10/18/21 History gabapentin 300 mg capsule See Rx Instructions .Route .COMPLEX 10/18/21 10/18/21 History hydroxychloroquine 200 mg tablet 200 mg PO QAM 10/18/21 10/18/21 History indomethacin 25 mg capsule See Rx Instructions .Route .COMPLEX 10/18/21 10/18/21 History topiramate 50 mg tablet 150 mg PO QAM 10/18/21 10/18/21 History Patient History Medical History (Updated 10/18/21 @ 18:55 by WILFRED RothC) Acute dystonic reaction due to drugs Benign microscopic hematuria Cervical facet syndrome Chronic constipation Fibromyalgia Hemicrania continua Hx of iron deficiency anemia Hx of peptic ulcer Hypertension Hypothyroidism Migraine headache Neutropenia Occipital neuralgia Osteoarthritis Renal insufficiency Restless leg syndrome Restless leg syndrome Rheumatoid arthritis Right trigeminal neuralgia Sjogren's disease Small fiber neuropathy Vitamin D deficiency Surgical History H/O wisdom tooth extraction H/O: hysterectomy History of bladder repair surgery X2 History of breast biopsy BENIGN-LEFT SIDE History of carpal tunnel release of both wrists History of colonoscopy History of dilation and curettage History of esophagogastroduodenoscopy (EGD) History of foot surgery RT BIG TOE REPAIR History of hip surgery LEFT WITH BONE GRAFT History of left oophorectomy History of surgery NERVE BLOCK FOR TRIGEMINAL NEURALGIA Hx of LASIK Family History Mother Hypertension Grandfather (Paternal) Laryngeal cancer SMOKER Grandmother (Maternal) Heart disease Uncle Heart disease MATERNAL Other No family history of adverse response to anesthesia No family history of bleeding disorder Social History Smoking Status: Never smoker Second Hand Exposure: No; Hx Alcohol Use: No Hx Substance Use: No Preferred Language: Emirati Communication Ability: Effective Visual Impairment: No Limitations Hearing Ability: Normal Dental Hygiene Instructor Required: No Beliefs That Will Affect Care: None marital status: Current Living Situation: Spouse and Family Current Living Situation Comment: 2 story house with family current occupational status: retired and disabled Other Information That Helps Us Care for You: No Feels Safe at Home: Yes Safety Concerns: Feels Safe At This Time Assistive Devices: Glasses Review of Systems Review of Systems: All systems reviewed & are unremarkable except as noted in HPI & below Physical Exam Physical Exam: Constitutional: WD/WN, vitals as above, NAD, sitting up in bed, pleasant, conversing easily Head: Normocephalic, Atraumatic Eyes: PERRL, conjunctivae normal, anicteric sclerae ENMT: external ear and nose normal, oropharynx normal Neck: trachea midline, no thyromegaly normal visual inspection Respiratory: normal respiratory effort, lungs clear to auscultation, no wheeze, rales, rhonchi. Normal insp/exp effort, no accessory muscle use Cardiovascular: RRR, no murmur, no edema Vessels: no JVD or carotid bruit Chest: normal inspection of chest Abdomen: normal bowel sounds, soft, nontender, no hepatosplenomegaly Musculoskeletal: no cyanosis or clubbing, extremities motor strength 5/5 except to LLE, strength with hip flexion 3/5, foot dorsi/plantar flexion 4/5 Skin: no rashes, warm and dry normal turgor Neurologic: PERRL, EOMI, accommodation nl, no face palsy, no dysarthria CN's II-XI intact bilaterally and moves all extremities Psychiatric: A+Ox3, euthymic affect Lymphatic: no cervical or axillary lymphadenopathy : deferred Results & Data ([facility]) Vital Signs (Past 12 Hours) Vital Signs Temp Pulse Pulse Resp BP BP Pulse Ox 10/18/21 15:48 78 18 114/68 98 10/18/21 14:20 86 18 142/97 H 98 10/18/21 12:02 98 10/18/21 11:02 36.8 C 87 16 131/81 100 O2 Del Method 10/18/21 15:48 Room Air 10/18/21 14:20 Room Air 10/18/21 12:02 Room Air 10/18/21 11:02 Laboratory Results Short CBC 10/18/21 Range/Units Unknown WBC 7.06 (4.8-10.8) K/ul Hgb 11.7 L (12.0-16.0) g/dl Hct 36.6 (34.1-44.9) % Plt Count 263 (130-400) K/uL BMP 10/18/21 Unknown Sodium 140 Potassium 3.2 L Chloride 109 H Carbon Dioxide 25 BUN 21 Creatinine 0.91 Glucose 96 Calcium 8.9 Liver Function 10/18/21 Range/Units Unknown Total Bilirubin 0.5 (0.2-1.0) mg/dl AST 15 (13-39) U/L ALT 11 (7-52) U/L Alkaline Phosphatase 41 (34-104) U/L Albumin 4.0 (3.4-5.0) gm/dl Urine 10/18/21 Range/Units Unknown Urine Color Yellow Urine Appearance Clear (Clear) Urine pH 5.5 (4.5-7.5) Ur Specific [place] 1.014 (1.000-1.030) Urine Protein Negative (Negative) Urine Glucose (UA) Negative (Negative) Diagnostic Findings Lumbar Spine MRI 10/18/21 11:30 MRI OF THE LUMBAR SPINE WITHOUT CONTRAST CLINICAL HISTORY: Left hip pain. back pain, urinary incontinence. COMPARISON STUDY: Lumbar spine MRI June 16, 2017. Lumbar spine CT October 16, 2021. TECHNIQUE: Utilizing a 1.5 Candace magnet and dedicated coil, multiplanar, multiecho imaging of the lumbar spine was performed without IV contrast. FINDINGS: For purposes of numbering on this exam, the L5-S1 disc space is assigned to axial image 23 of 26. Therefore millimeters of anterolisthesis of L4 and L5. This is due to facet arthrosis. Vertebral body heights are maintained. No suspicious marrow replacement. Several T1 and T2 hyperintense lesions reflect hemangiomas. There is no intracanalicular mass or fluid collection. The conus terminates at the mid L1 level. Paravertebral soft tissues are unremarkable. L1-2: The central canal and neural foramen are patent. L2-3: There is disc space narrowing. There is disc bulge with a superimposed left paracentral disc extrusion with superior subligamentous migration versus sequestered fragment. The disc herniation or fragment measures 1.2 x 0.7 x 0.9 cm. There is severe narrowing of the left lateral recess. This also results in moderate narrowing of the proximal aspect of the left neural foramen. The right neural foramen is patent. There is mild to moderate central canal stenosis. L3-4: Disc bulge is noted. There is moderate facet arthrosis. There is minimal narrowing of the central canal. Moderate bilateral neural foraminal stenosis is present. L4-5: Severe facet arthrosis results in minimal anterolisthesis. There is ligamentous hypertrophy with mild disc bulge. There is mild to moderate central canal stenosis. Patent AP diameter canal is 6 mm. There is severe right and mild left neural foraminal stenosis. L5-S1: There is disc bulge. Facet arthrosis is present. Central canal is patent. Neural foramen are patent. IMPRESSION: 1. Large left paracentral disc extrusion versus sequestered fragment at L2-L3 with superior subligamentous migration. This results in severe narrowing of the left lateral recess and moderate narrowing of the left neural foramen at this level. 2. Severe multilevel facet arthrosis, most pronounced at L4-L5. This results in mild anterolisthesis. Mild to moderate central canal stenosis and severe narrowing of the right neural foramen at L4-L5. 3. Additional multilevel degenerative changes as above. ACT 112: Negative or not required by law. Electronically signed by: Sandeep Fuentes M.D. 10/18/2021 3:02 PM Medications Administered Medication List Discontinued Medications Hydromorphone HCl (Hydromorphone Inj 0.5 Mg/0.5 Ml Syr) 0.5 mg IV NOW STA Stop: 10/18/21 14:13 Last Admin: 10/18/21 14:17 Dose: 0.5 mg Documented By: BRIGIDA Sodium Chloride (Nss) 500 mls @ 999 mls/hr IV .Q31M STA Stop: 10/18/21 12:01 Last Infusion: 10/18/21 13:34 Dose: 0 mls/hr Documented By: Admin: 10/18/21 11:49 Dose: 999 mls/hr Documented By: BRIGIDA Morphine Sulfate (Morphine Sulfate 4 Mg/Ml 1 Ml Carp\Vial) 4 mg IV NOW STA Stop: 10/18/21 11:32 Last Admin: 10/18/21 11:48 Dose: 4 mg Documented By: BRIGIDA Ondansetron HCl (Ondansetron Inj 2 Mg/Ml 2 Ml Vial) 4 mg IV NOW STA Stop: 10/18/21 11:32 Last Admin: 10/18/21 11:48 Dose: 4 mg Documented By: BRIGIDA
[2021-10-18] MEDS ORDERED: diazePAM 2 MG TABLET PO STA (18:24)
[2021-10-18] MEDS ORDERED: KETOROLAC TROMETHAMINE 15 MG/ML VIAL IV ONE (18:24)
[2021-10-18] MEDS: LACTATED RINGER'S 1,000 ML IV SCH (19:41)
[2021-10-18] MEDS ORDERED: GABAPENTIN 600 MG TAB PO SCH (21:25)
[2021-10-18] MEDS: PRAMIPEXOLE DIHYDROCHLO 0.5 MG TAB PO SCH (21:43)
[2021-10-18] MEDS: TOPIRAMATE 50 MG TAB PO SCH (21:43)
[2021-10-19] MEDS: HYDROmorphone INJ 0.5 MG/0.5 ML SYR IV PRN ×2 (02:08→08:57)
[2021-10-19] MEDS: LEVOTHYROXINE SODIUM 50 MCG TABLET PO SCH (05:32)
[2021-10-19 07:25] LABS: Basophils # (auto) 0.03 K/uL (0-0.2); Basophils % (auto) 0.5 %; Eosinophils # (auto) 0.03 K/uL (0-0.50); Eosinophils % (auto) 0.5 %; Hematocrit (blood only) 32.1 % (34.1-44.9); Hemoglobin 10.5 g/dl (12.0-16.0); Immature Granulocytes # (auto) 0.01 K/uL (0.00-0.02); Immature Granulocytes % (auto) 0.2 %; Lymphocytes # (auto) 2.81 K/uL (1.2-3.4); Lymphocytes % (auto) 44.2 %; Mean Corpuscular Hemoglobin 28.9 pg (25.0-34.0); Mean Corpuscular Hgb Conc 32.7 g/dL (32.0-36.0); Mean Corpuscular Volume 88.4 fL (80.0-100.0); Mean Platelet Volume 9.8 fL (9.4-12.3); Monocytes # (auto) 0.48 K/uL (0.24-0.82); Monocytes % (auto) 7.5 %; Neutrophils % (auto) 47.1 %; Platelet Count 232 K/uL (130-400); RDW Coefficient of Variation 13.2 % (11.5-14.5); Red Blood Count 3.63 M/uL (3.93-5.22); White Blood Count 6.36 K/ul (4.8-10.8)
[2021-10-19 07:53] LABS: BUN Creatinine Ratio 21.9 (10-20); Calcium 8.4 mg/dl (8.5-10.1); Creatinine Clr Calc Pharmacy 69.7 ml/min; Est GFR (African American) 108.2 ml/min; Est GFR (Non-African American) 93.4 ml/min; Potassium 3.5 mmol/L (3.5-5.1)
--- NOTE | 2021-10-19 07:55 | History & Physical Report ---
Date of Service October 19, 2021 Assessment & Plan (1) Lumbar disc herniation with radiculopathy: Plan: Assessment acute discrimination L2-L3 on the left with radiculopathy and urinary retention. Plan at this time at length discussion with the patient reviewing her MRI findings and clinical presentation. She does have a large disc herniation with free fragment migrating cephalad at L2-L3 on the left. She has significant spinal stenosis facet hypertrophy at L4-L5 however her presentation is not consistent with this level. I am recommending an emergent laminectomy L2-3 on the left to remove the herniated fragment at L2-L3. Risk benefits pros cons alternatives were outlined in detail. She is n.p.o. We will plan for surgery today. Admission and Anticipated Discharge Date Admission Date: October 18, 2021 History of Present Illness Chief Complaint: Superior left groin and anterior thigh pain Primary Care Provider: Cesar Haq MD This is a 56-year-old female that had approximately 1 week of severe pain rating into the left buttock left groin and anterior thigh. She denies any precipitating trauma fall or event. She does have a history of a osteochondroma of the left hip and subsequent surgery twice. This pain is completely different. She finds it markedly incapacitating. She can only stand and lean forward to find any relief. It does limit her ability to ambulate however. She notes significant strength deficit with hip flexion on the left. Of concern is for urinary retention that is manifested over the past few days. She describes dense numbness to the thigh on the left. The right lower extremity is a symptomatic. Allergies Allergy/AdvReac Type Severity Reaction Status Date / Time leflunomide Allergy Intermediate had a Verified 10/18/21 16:27 cervical dystonic episode tetanus toxoid, adsorbed Allergy Intermediate fever and Verified 10/18/21 16:27 streaking up the arm Home Medications Medication Instructions Recorded Confirmed Type spironolactone 25 mg tablet 75 mg PO QAM 10/31/17 10/18/21 History (Aldactone) lisinopril 5 mg tablet 5 mg PO QAM 02/16/18 10/18/21 History levothyroxine 50 mcg tablet 50 mcg PO QAM 01/20/19 10/18/21 History pantoprazole 40 mg tablet,delayed 40 mg PO QAM 11/21/19 10/18/21 History release (Protonix) golimumab 100 mg/mL subcutaneous 100 mg subcut MONTHLY 10/30/20 10/18/21 History pen injector (Simponi) methocarbamol 500 mg tablet 500 mg PO BID PRN Muscle Pain 12/16/20 10/18/21 History tramadol 50 mg tablet 50 mg PO DAILY PRN Pain 12/16/20 10/18/21 History carbamazepine 100 mg 100 mg PO BID PRN TRIGEMINAL 02/05/21 10/18/21 History tablet,extended release,12 hr NEURALGIA (Tegretol XR) potassium 99 mg tablet 99 mg PO QAM 02/05/21 10/18/21 History pramipexole 1 mg tablet 1 mg PO HS 02/05/21 10/18/21 History oxycodone 5 mg tablet 5 mg PO Q6H PRN pain #12 tabs 10/16/21 10/18/21 Rx prednisone 20 mg tablet See Rx Instructions .Route 10/16/21 10/18/21 Rx .COMPLEX #13 tabs cholecalciferol (vitamin D3) 50 200 mcg PO QAM 10/18/21 10/18/21 History mcg (2,000 unit) tablet (Vitamin D3) folic acid 1 mg tablet 1 mg PO QAM 10/18/21 10/18/21 History gabapentin 300 mg capsule See Rx Instructions .Route .COMPLEX 10/18/21 10/18/21 History hydroxychloroquine 200 mg tablet 200 mg PO QAM 10/18/21 10/18/21 History indomethacin 25 mg capsule See Rx Instructions .Route .COMPLEX 10/18/21 10/18/21 History topiramate 50 mg tablet 150 mg PO QAM 10/18/21 10/18/21 History Past Med/Surg History Medical History (Updated 10/18/21 @ 18:55 by Tania Lehman PA-C) Acute dystonic reaction due to drugs Benign microscopic hematuria Cervical facet syndrome Chronic constipation Fibromyalgia Hemicrania continua Hx of iron deficiency anemia Hx of peptic ulcer Hypertension Hypothyroidism Migraine headache Neutropenia Occipital neuralgia Osteoarthritis Renal insufficiency Restless leg syndrome Restless leg syndrome Rheumatoid arthritis Right trigeminal neuralgia Sjogren's disease Small fiber neuropathy Vitamin D deficiency Surgical History H/O wisdom tooth extraction H/O: hysterectomy History of bladder repair surgery X2 History of breast biopsy BENIGN-LEFT SIDE History of carpal tunnel release of both wrists History of colonoscopy History of dilation and curettage History of esophagogastroduodenoscopy (EGD) History of foot surgery RT BIG TOE REPAIR History of hip surgery LEFT WITH BONE GRAFT History of left oophorectomy History of surgery NERVE BLOCK FOR TRIGEMINAL NEURALGIA Hx of LASIK Family History Mother Hypertension Grandfather (Paternal) Laryngeal cancer SMOKER Grandmother (Maternal) Heart disease Uncle Heart disease MATERNAL Other No family history of adverse response to anesthesia No family history of bleeding disorder Social History Smoking Status: Never smoker Second Hand Exposure: No; Hx Alcohol Use: No Hx Substance Use: No Preferred Language: Uruguayan Communication Ability: Effective Visual Impairment: No Limitations Hearing Ability: Normal Watch Parts Grinder Required: No Beliefs That Will Affect Care: None marital status: Current Living Situation: Spouse and Family Current Living Situation Comment: 2 story house with family current occupational status: retired and disabled Other Information That Helps Us Care for You: No Feels Safe at Home: Yes Safety Concerns: Feels Safe At This Time Assistive Devices: Glasses Physical Exam Physical Exam: On exam the patient is obvious distress. She prefers to lean forward. She exhibits marked deficits to hip flexion and quads on the left and a 4 - over 5-5 or 5 on the right. Plantar flexion dorsiflexion are symmetric 5/5 bilaterally. There is dense numbness to the left anterior thigh compared to the right. Deep tendon reflexes diminished. Results & Data Results & Data ([facility]) Vital Signs (Past 12 Hours) Vital Signs Temp Pulse Resp BP Pulse Ox O2 Del Method 10/19/21 07:06 37.0 C 90 16 123/75 100 Room Air Code Status & VTE Plan VTE Prophylaxis Plan VTE Prophylaxis will be ordered: Yes
[2021-10-19] MEDS: LACTATED RINGER'S 1,000 ML IV SCH (08:56)
[2021-10-19] MEDS: PANTOprazole 40 MG TAB PO SCH (08:57)
[2021-10-19] MEDS: lisinopril 5 MG TAB PO SCH (08:57)
[2021-10-19] MEDS: SPIRONOLACTONE 25 MG TAB PO SCH (08:57)
[2021-10-19] MEDS ORDERED: TOPIRAMATE 50 MG TAB PO SCH (09:00)
[2021-10-19] MEDS ORDERED: MIDAZOLAM HCL 1 MG/ML 2ML VIAL ONE (09:26)
[2021-10-19] MEDS ORDERED: GLYCOPYRROLATE 0.2 MG/ML VIAL ONE (09:26)
[2021-10-19] MEDS ORDERED: LIDOCAINE 2% MPF LOCAL 5 ML VIAL INFIL ONE (09:26)
[2021-10-19] MEDS ORDERED: fentaNYL citrate 100 MCG/2 ML VIAL ONE (09:26)
[2021-10-19] MEDS ORDERED: ONDANSETRON INJ 2 MG/ML 2 ML VIAL ONE (09:26)
[2021-10-19] MEDS ORDERED: PROPOFOL IV EMULSION 10 MG/ML 20 ML VIAL IV ONE (09:26)
[2021-10-19] MEDS ORDERED: DEXAMETHASONE SOD INJ 4 MG/ML VIAL ONE (09:26)
[2021-10-19] MEDS ORDERED: ROCURONIUM BROMIDE 10 MG/ML 5 ML VIAL IV ONE (09:26)
--- NOTE | 2021-10-19 09:33 | Anesthesiology Consultation ---
Date of Service October 19, 2021 Assessment & Plan (1) Encounter for pre-operative examination: Chart Review Chart Review: powerbuilder initiated History Surgery Operation Date: 10/19/21 07:00 Proposed Procedures p Left L2-L3 Laminectomy - Joel Davidson DO Height/Weight Height: 5 ft 2 in Weight: 52.673 kg Allergies Allergy/AdvReac Type Severity Reaction Status Date / Time leflunomide Allergy Intermediate had a Verified 10/18/21 16:27 cervical dystonic episode tetanus toxoid, adsorbed Allergy Intermediate fever and Verified 10/18/21 16:27 streaking up the arm Medications Home Medications Medication Instructions Recorded Confirmed Last Taken spironolactone 25 mg tablet 75 mg PO QAM 10/31/17 10/18/21 10/17/21 (Aldactone) lisinopril 5 mg tablet 5 mg PO QAM 02/16/18 10/18/21 10/17/21 levothyroxine 50 mcg tablet 50 mcg PO QAM 01/20/19 10/18/21 10/17/21 pantoprazole 40 mg tablet,delayed 40 mg PO QAM 11/21/19 10/18/21 02/23/21 release (Protonix) golimumab 100 mg/mL subcutaneous 100 mg subcut MONTHLY 10/30/20 10/18/21 09/27/21 pen injector (Simponi) methocarbamol 500 mg tablet 500 mg PO BID PRN Muscle Pain 12/16/20 10/18/21 Unknown tramadol 50 mg tablet 50 mg PO DAILY PRN Pain 12/16/20 10/18/21 Unknown carbamazepine 100 mg 100 mg PO BID PRN TRIGEMINAL 02/05/21 10/18/21 Unknown tablet,extended release,12 hr NEURALGIA (Tegretol XR) potassium 99 mg tablet 99 mg PO QAM 02/05/21 10/18/21 10/17/21 pramipexole 1 mg tablet 1 mg PO HS 02/05/21 10/18/21 10/17/21 oxycodone 5 mg tablet 5 mg PO Q6H PRN pain #12 tabs 10/16/21 10/18/21 10/18/21 prednisone 20 mg tablet See Rx Instructions .Route 10/16/21 10/18/21 10/17/21 .COMPLEX #13 tabs cholecalciferol (vitamin D3) 50 200 mcg PO QAM 10/18/21 10/18/21 10/17/21 mcg (2,000 unit) tablet (Vitamin D3) folic acid 1 mg tablet 1 mg PO QAM 10/18/21 10/18/21 10/17/21 gabapentin 300 mg capsule See Rx Instructions .Route .COMPLEX 10/18/21 10/18/21 10/17/21 hydroxychloroquine 200 mg tablet 200 mg PO QAM 10/18/21 10/18/21 10/17/21 indomethacin 25 mg capsule See Rx Instructions .Route .COMPLEX 10/18/21 10/18/21 10/17/21 topiramate 50 mg tablet 150 mg PO QAM 10/18/21 10/18/21 10/17/21 Active Medications Generic Name Dose Route Start Last Admin Trade Name Freq PRN Reason Stop Dose Admin Gabapentin 600 mg 10/18/21 21:25 10/18/21 21:44 Gabapentin 600 Mg Tab PO 11/17/21 21:24 600 mg HS ROSALIA Administration Hydromorphone HCl 0.5 mg 10/18/21 16:12 10/19/21 08:57 Hydromorphone Inj 0.5 Mg/0.5 Ml Syr IV 11/01/21 16:11 0.5 mg Q3H PRN Administration MOD pain (scale 4-6) & Pre PT Lactated Ringer's 1,000 mls @ 75 mls/hr 10/18/21 16:15 10/19/21 08:56 Lr IV 11/17/21 16:14 75 mls/hr .[id number] ROSALIA Administration Levothyroxine Sodium 50 mcg 10/19/21 06:30 10/19/21 05:32 Levothyroxine Sodium 50 Mcg Tablet PO 11/18/21 06:29 50 mcg DAILYBB ROSALIA Administration Lisinopril 5 mg 10/19/21 09:00 10/19/21 08:57 Lisinopril 5 Mg Tab PO 11/18/21 08:59 5 mg QAM ROSALIA Administration Pantoprazole Sodium 40 mg 10/19/21 09:00 10/19/21 08:57 Pantoprazole 40 Mg Tab PO 11/18/21 08:59 40 mg QAM ROSALIA Administration Pramipexole Dihydrochloride 1 mg 10/18/21 21:00 10/18/21 21:43 Pramipexole Dihydrochlo 0.5 Mg Tab PO 11/17/21 20:59 1 mg HS ROSALIA Administration Spironolactone 75 mg 10/19/21 09:00 10/19/21 08:57 Spironolactone 25 Mg Tab PO 11/18/21 08:59 75 mg QAM ROSALIA Administration Topiramate 50 mg 10/18/21 21:30 10/18/21 21:43 Topiramate 50 Mg Tab PO 11/17/21 21:29 50 mg HS ROSALIA Administration Past Medical History Medical History Acute dystonic reaction due to drugs Benign microscopic hematuria Cervical facet syndrome Chronic constipation Fibromyalgia Hemicrania continua Hx of iron deficiency anemia Hx of peptic ulcer Hypertension Hypothyroidism Migraine headache Neutropenia Occipital neuralgia Osteoarthritis Renal insufficiency Restless leg syndrome Restless leg syndrome Rheumatoid arthritis Right trigeminal neuralgia Sjogren's disease Small fiber neuropathy Vitamin D deficiency Past Family History Family History Mother Hypertension Grandfather (Paternal) Laryngeal cancer SMOKER Grandmother (Maternal) Heart disease Uncle Heart disease MATERNAL Other No family history of adverse response to anesthesia No family history of bleeding disorder Past Surgical History Surgical History H/O wisdom tooth extraction H/O: hysterectomy History of bladder repair surgery X2 History of breast biopsy BENIGN-LEFT SIDE History of carpal tunnel release of both wrists History of colonoscopy History of dilation and curettage History of esophagogastroduodenoscopy (EGD) History of foot surgery RT BIG TOE REPAIR History of hip surgery LEFT WITH BONE GRAFT History of left oophorectomy History of surgery NERVE BLOCK FOR TRIGEMINAL NEURALGIA Hx of LASIK Social History Smoking Status: Never smoker Hx Alcohol Use: No Hx Substance Use: No substance use type: does not use Physical Exam Vital Signs Last Vital Signs Temp 98.6 F 10/19/21 07:06 Pulse 90 10/19/21 07:06 Resp 16 10/19/21 07:06 BP 123/75 10/19/21 07:06 Pulse Ox 100 10/19/21 07:06 O2 Del Method 10/19/21 07:06 Testing Laboratory Results 10/19/21 06:59 10/19/21 06:59 Urine Color Yellow 10/18/21 Unknown Urine Appearance Clear (Clear) 10/18/21 Unknown Urine pH 5.5 (4.5-7.5) 10/18/21 Unknown Ur Specific [place] 1.014 (1.000-1.030) 10/18/21 Unknown Urine Protein Negative (Negative) 10/18/21 Unknown Urine Glucose (UA) Negative (Negative) 10/18/21 Unknown Urine Ketones Negative (Negative) 10/18/21 Unknown Urine Nitrite Negative (Negative) 10/18/21 Unknown Ur Leukocyte Esterase Negative (Negative) 10/18/21 Unknown Urine WBC (Auto) 1-5 /hpf (0-5) 10/18/21 Unknown Urine RBC (Auto) 0-4 /hpf (0-4) 10/18/21 Unknown U Hyaline Cast (Auto) 0 /lpf (0-5) 10/18/21 Unknown U Epithel Cells (Auto) 0-5 /lpf (0-5) 10/18/21 Unknown Urine Bacteria (Auto) Negative (Negative) 10/18/21 Unknown Electrocardiogram Date: 02/09/21 Normal sinus rhythm, rate 84 bpm Rightward axis Borderline ECG When compared with ECG of 20-JAN-2019 04:57, No significant change was found Confirmed by Alfredo Rodriguez ([id number]) on 02/11/2021 6:17:24 AM
[2021-10-19] MEDS ORDERED: ePHEDrine sulfate 50 MG/ML AMP IV PRN (10:25)
[2021-10-19] MEDS ORDERED: ONDANSETRON INJ 2 MG/ML 2 ML VIAL IV PRN ×2 (10:25→13:22)
[2021-10-19] MEDS ORDERED: ATROPINE SULFATE 0.1 MG/ML 10ML SYR IV PRN (10:25)
[2021-10-19] MEDS ORDERED: fentaNYL citrate 100 MCG/2 ML VIAL IV PRN (10:25)
[2021-10-19] MEDS ORDERED: HYDROmorphone INJ 2 MG/ML SYR/VIAL IV PRN (10:26)
[2021-10-19] MEDS ORDERED: ceFAZolin 1000MG 1,000 MG/7.5 ML SYR IV ONE (10:44)
[2021-10-19] MEDS ORDERED: BUPIVACAINE/EPINEPHRINE 0.25% 1:200,000 30 ML VIAL ONE (10:54)
[2021-10-19] MEDS ORDERED: ceFAZolin 330 MG/ML 1 GM VIAL ONE (10:54)
[2021-10-19] MEDS ORDERED: FLOSEAL HEMOSTATIC MATRIX 10ML TOP ONE (11:51)
--- NOTE | 2021-10-19 12:04 | Operative Report ---
Post Operative Report Pre & Post Diagnosis Operation Date: 10/19/21 07:00 Pre-Op Diagnosis: Lumbar Disk Herniation Post-Op Diagnosis: Lumbar Disk Herniation I identified the patient and participated in the time-out.: Yes Procedure Operation Date: 10/19/21 07:00 Actual Procedures Lumbar laminotomy with excision of herniated free fragment L2-L3 on the left Surgeon Joel Davidson, DO Hydrodynamicist None Estimated Blood Loss 5 Findings Consistent with Post-Op Diagnosis Specimens None Indications This is a 56-year-old female who presents emergency room with severe left leg pain consistent with L2-L3 radiculopathy. She is struggling with inability to manage her pain as well as urinary retention is here for laminotomy discectomy. Description of Procedure Patient was met with identified informed consent obtained. Patient was then taken to the operative suite placed in the prone position the Rafael on top Deandre frame. All bony prominences well-padded and eyes inspected to ensure no external pressure placed upon them. This point the lumbar spine was prepped and draped in normal sterile fashion. The assistance of fluoroscopy defy the L2-L3 disc space and a midline incision was created overlying this region. Sharp dissection with assistance of Bovie cautery performed down to and exposing the interlaminar space at L2-L3 on the left. Self-retaining retractors placed. Then created as a small laminotomy L2-L3 on the left with excision of the medial portion of the facet and resection of the lateral portion of the ligamentum flavum to expose a markedly compressed traversing L3 nerve root. I was able to mobilize this medially and several loose fragments of disc material identified and removed. The area was explored several times to ensure all fragments addressed then copiously irrigated and closed with subcutaneous Vicryl 4 Monocryl for fascial closure Steri-Strip sterile dressings placed. Patient waken taken to PACU stable condition. I attest to the content of the Intraoperative Record and any orders documented therein. Any exceptions are noted below.
--- NOTE | 2021-10-19 12:21 | Anesthesiology Progress Note ---
Date of Service October 19, 2021 Anesthesia Post Procedure Vital Signs Vital Signs: Temp Pulse Resp BP Pulse Ox O2 Del Method 10/19/21 10:07 36.5 C 77 18 136/87 100 Room Air 10/19/21 07:06 37.0 C 90 16 123/75 100 Room Air 10/18/21 19:15 37.1 C 85 18 130/78 100 Room Air 10/18/21 17:00 94 H 18 133/83 99 Room Air 10/18/21 15:48 78 18 114/68 98 Room Air 10/18/21 14:20 86 18 142/97 H 98 Room Air Pain Intensity Lower Back: Pain Intensity: 5 Transfer of Care Handoff Completed per policy Notes Mental Status: alert / awake / arousable and participated in evaluation Patient Amnestic to Procedure: Yes Nausea / Vomiting: adequately controlled Pain: adequately controlled Airway Patency, RR, SpO2: stable & adequate BP & HR: stable & adequate Hydration State: stable & adequate Anesthetic Complications: no major complications apparent and Pt Satisfied with anesthetic care
[2021-10-19] MEDS ORDERED: MAGNESIUM HYDROXIDE SUSP 30 ML UDC PO PRN (13:22)
[2021-10-19] MEDS ORDERED: LACTATED RINGER'S 1,000 ML IV SCH (13:22)
[2021-10-19] MEDS ORDERED: SOD PHOSPHATE/SOD BIPHOSPHATE ENEMA 132 ML BTL PR PRN (13:22)
[2021-10-19] MEDS ORDERED: oxyCODONE HCL IR 5 MG TAB (IMMEDIATE RELEASE) PO PRN (13:22)
[2021-10-19] MEDS ORDERED: ACETAMINOPHEN 500 MG TAB PO PRN (13:22)
[2021-10-19] MEDS ORDERED: ONDANSETRON 4 MG OD TAB PO PRN (13:22)
[2021-10-19] MEDS ORDERED: FAMOTIDINE 20 MG TAB PO PRN (13:22)
[2021-10-19] MEDS ORDERED: HYDROmorphone INJ 1 MG/ML SYRINGE IV PRN (13:22)
[2021-10-19] MEDS ORDERED: METOCLOPRAMIDE HCL INJ 5 MG/ML 2 ML VIAL IV PRN (13:22)
[2021-10-19] MEDS ORDERED: bisacodyL 10 MG SUPP PR PRN (13:22)
[2021-10-19] MEDS ORDERED: ACETAMINOPHEN 1,000 MG/100 ML VIAL IV PRN (13:22)
[2021-10-19] MEDS ORDERED: HYDROmorphone INJ 0.5 MG/0.5 ML SYR IV PRN (13:22)
[2021-10-19] MEDS ORDERED: hydrOXYzine HCl 25 MG TAB PO PRN (13:22)
[2021-10-19] MEDS ORDERED: PROMETHAZINE HCL 12.5 MG in SODIUM CHLORIDE 0.9% 50 ML IV PRN (13:22)
[2021-10-19] MEDS ORDERED: LORazepam 0.5 MG TAB PO PRN (13:22)
[2021-10-19] MEDS ORDERED: diphenhydrAMINE Capsule 25 MG CAP PO PRN (13:22)
[2021-10-19] MEDS ORDERED: LORazepam 0.5 MG in SYRINGE 0.25 ML IV PRN (13:22)
[2021-10-19] MEDS ORDERED: NALOXONE HCL 0.4 MG/1 ML VIAL/CARP IV PRN (13:22)
[2021-10-19] MEDS ORDERED: ALUMINUM/MAGNESIUM SUSP 30 ML UDC PO PRN (13:22)
--- NOTE | 2021-10-19 13:42 | Fluoroscopy Report ---
FL spine 1V any level CLINICAL HISTORY: L2-3 LAMINECTOMY COMPARISON STUDY: None. FLUOROSCOPY TIME: 10 seconds. FINDINGS: A single fluoroscopic spot image of the lumbar spine demonstrates surgical instruments post erior to the L2-L3 level within L2-L3 laminectomy. IMPRESSION: Fluoroscopic assistance provided for L2-L3 laminectomy. ACT 112: Negative or not required by law. Electronically signed by: Elkin Veliz M.D. 10/19/2021 1:41 PM
--- NOTE | 2021-10-19 15:34 | Hospitalist Progress Note ---
Date of Service October 19, 2021 Assessment & Plan (1) Acute pain of left hip: (2) Lumbar disc herniation with radiculopathy: (3) Rheumatoid arthritis: (4) Sjogren's disease: (5) Hypertension: Plan This is a 56-year-old female who has significant past medical history of rheumatoid arthritis, Sjogren's syndrome, small fiber neuropathy, fibromyalgia, restless leg syndrome, history of occipital and trigeminal neuralgia, HTN, hypothyroidism, history of PUD who presents to ER 10/18 secondary to complaint of left hip pain. MRI L spine: Large left paracentral disc extrusion versus sequestered fragment at L2-L3 with superior subligamentous migration. This results in severe narrowing of the left lateral recess and moderate narrowing of the left neural foramen at this level. 2. Severe multilevel facet arthrosis, most pronounced at L4-L5. This results in mild anterolisthesis. Mild to moderate central canal stenosis and severe narrowing of the right neural foramen at L4-L5. Acute left hip pain Lumbar disc herniation with radiculopathy s/p Lumbar laminotomy with excision of herniated free fragment L2-L3 on the left by Dr. Davidson on 10/19/21 consulted for medical management Diet/pain mx, pt/ot and DVT px per orthospine. Pt reports improvement in LLE redicular symptoms, pt comfortable. Hypokalemia - resolved, f/u in AM Rheumatoid arthritis Sjogren disease follows [facility] Rheum Dr. Burris daily plaquenil (held by Dr. Davidson) and monthly inj of golimumab HTN Continue lisinopril and Aldactone Monitor blood pressure Small fiber neuropathy Fibromyalgia History of occipital and trigeminal neuralgia Hemicrania continua Patient on gabapentin, indomethacin and Topamax as outpatient Follows multiple specialists Hx of MRSA contact precautions ordered Hypothyroidism Continue levothyroxine RLS Continue pramipexole DVT prophylaxis: SCDs per primary FULL CODE PCP: Dr. Haq ([place]) Admission and Anticipated Discharge Date Admission Date: October 18, 2021 Subjective Patient seen and examined at bedside as a follow-up of medical consult for status post Lumbar laminotomy with excision of herniated free fragment L2-L3 on the left by Dr. Davidson on 10/19/2021. Patient was lying in bed, on room air, comfortable, AOx4, reports improvement in her LLE radicular pain, reports pain at incision site minimal, denies any headache/dizziness/sore throat/cough/chest pain/palpitations/other review of symptoms. Physical Exam Physical Exam: GENERAL: Alert and oriented x3. NAD, on RA. HEENT: No pallor, no icterus. Pupils equal, round and reactive to light. Oral mucosa moist. NECK: No JVD, no neck masses. HEART: S1 and S2 heard. Regular rate and rhythm. No murmur, no gallop. RESPIRATORY SYSTEM: Normal AP diameter. No accessory muscle use. No wheezing, no crackles. ABDOMEN: Soft, bowel sounds present, nontender, no distention. CENTRAL NERVOUS SYSTEM: No facial droop. Speech is clear. Obeys simple commands. Moves extremities. EXTREMITIES: No edema, no erythema seen. Low back with dressing. Distal neurovascular status normal. b/l hands RA changes noted. Results & Data Results & Data ([facility]) Vital Signs (Past 12 Hours) Vital Signs Temp Pulse Pulse Pulse Resp BP Pulse Ox 10/19/21 14:22 37.0 C 77 18 115/79 99 10/19/21 13:48 37.1 C 66 18 138/81 99 10/19/21 13:27 36.8 C 85 16 120/77 98 10/19/21 13:10 74 19 116/74 100 10/19/21 13:00 82 17 109/76 99 10/19/21 12:50 36.4 C L 71 15 105/75 99 10/19/21 12:40 66 16 111/69 99 10/19/21 12:30 66 14 111/70 100 10/19/21 12:20 69 13 113/71 100 10/19/21 12:14 36.4 C L 84 17 124/82 100 10/19/21 10:07 36.5 C 77 18 136/87 100 10/19/21 07:06 37.0 C 90 16 123/75 100 O2 Del Method O2 Flow Rate 10/19/21 14:22 Room Air 10/19/21 13:48 Room Air 10/19/21 13:27 Room Air 10/19/21 13:10 Room Air 10/19/21 13:00 Room Air 10/19/21 12:50 Room Air 10/19/21 12:40 Room Air 08/29/22 12:30 Oxymask 4 10/19/21 12:20 Oxymask 9 10/19/21 12:14 Oxymask 9 10/19/21 10:07 Room Air 10/19/21 07:06 Room Air
[2021-10-19] MEDS: ceFAZolin 1000MG 1,000 MG/7.5 ML SYR IV SCH (17:43)
[2021-10-19] MEDS: traMADol HCL 50 MG TABLET PO PRN ×2 (17:57→22:52)
[2021-10-19] MEDS: TOPIRAMATE 50 MG TAB PO SCH (20:21)
[2021-10-19] MEDS: PRAMIPEXOLE DIHYDROCHLO 0.5 MG TAB PO SCH (20:21)
[2021-10-19] MEDS ORDERED: DOCUSATE SODIUM/SENNA 50/8.6MG TAB PO SCH (21:00)
[2021-10-20] MEDS ORDERED: LACTATED RINGER'S 1,000 ML IV ONE (02:24)
[2021-10-20] MEDS: ceFAZolin 1000MG 1,000 MG/7.5 ML SYR IV SCH (02:29)
[2021-10-20 04:00] LABS: Basophils # (auto) 0.02 K/uL (0-0.2); Basophils % (auto) 0.2 %; Eosinophils # (auto) 0.01 K/uL (0-0.50); Eosinophils % (auto) 0.1 %; Hematocrit (blood only) 31.9 % (34.1-44.9); Hemoglobin 10.4 g/dl (12.0-16.0); Immature Granulocytes # (auto) 0.04 K/uL (0.00-0.02); Immature Granulocytes % (auto) 0.4 %; Lymphocytes # (auto) 1.94 K/uL (1.2-3.4); Lymphocytes % (auto) 17.8 %; Mean Corpuscular Hemoglobin 28.8 pg (25.0-34.0); Mean Corpuscular Hgb Conc 32.6 g/dL (32.0-36.0); Mean Corpuscular Volume 88.4 fL (80.0-100.0); Mean Platelet Volume 9.8 fL (9.4-12.3); Monocytes # (auto) 1.07 K/uL (0.24-0.82); Monocytes % (auto) 9.8 %; Neutrophils # (auto) 7.83 K/uL (1.4-6.5); Neutrophils % (auto) 71.7 %; Platelet Count 231 K/uL (130-400); Red Blood Count 3.61 M/uL (3.93-5.22); White Blood Count 10.91 K/ul (4.8-10.8)
[2021-10-20 04:02] LABS: BUN Creatinine Ratio 15.9 (10-20); Calcium 8.4 mg/dl (8.5-10.1); Est GFR (Non-African American) 81.1 ml/min; Magnesium 1.9 mg/dl (1.7-2.4); Potassium 3.3 mmol/L (3.5-5.1)
[2021-10-20] MEDS: LEVOTHYROXINE SODIUM 50 MCG TABLET PO SCH (05:27)
[2021-10-20] MEDS ORDERED: POLYETHYLENE (MIRALAX) 17 GM PACK PO SCH (06:00)
[2021-10-20] MEDS ORDERED: POTASSIUM CHLORIDE CRTAB 20 MEQ TABCR PO STA (08:52)
[2021-10-20] MEDS: PANTOprazole 40 MG TAB PO SCH (08:54)
[2021-10-20] MEDS: SPIRONOLACTONE 25 MG TAB PO SCH (08:55)
[2021-10-20] MEDS: lisinopril 5 MG TAB PO SCH (08:55)
[2021-10-20] MEDS ORDERED: CHOLECALCIFEROL 1,000 UNITS 25 MCG TAB PO SCH (09:00)
[2021-10-20] MEDS ORDERED: dexAMETHasone 6 MG in SYRINGE 0 ML IV SCH (09:00)
[2021-10-20] MEDS: traMADol HCL 50 MG TABLET PO PRN (09:24)
--- NOTE | 2021-10-20 11:01 | Discharge Summary ---
Date of Service October 20, 2021 Admission HPI Per Admitting Provider This is a 56-year-old female that had approximately 1 week of severe pain rating into the left buttock left groin and anterior thigh. She denies any precipitating trauma fall or event. She does have a history of a osteochondroma of the left hip and subsequent surgery twice. This pain is completely different. She finds it markedly incapacitating. She can only stand and lean forward to find any relief. It does limit her ability to ambulate however. She notes significant strength deficit with hip flexion on the left. Of concern is for urinary retention that is manifested over the past few days. She describes dense numbness to the thigh on the left. The right lower extremity is asymptomatic. Principal Diagnosis Lumbar disc herniation with radiculopathy Discharge Data Allergies Allergy/AdvReac Type Severity Reaction Status Date / Time leflunomide Allergy Intermediate had a Verified 10/18/21 16:27 cervical dystonic episode tetanus toxoid, adsorbed Allergy Intermediate fever and Verified 10/18/21 16:27 streaking up the arm Consultations 10/18/21 16:01 ED Decision to Admit Stat 10/18/21 16:12 Consult Internal Medicine Routine Procedures Performed Operation Date: 10/19/21 07:00 Actual Procedures p Left L2-L3 Laminectomy(Not Applicable) - Joel Davidson DO Ordered Studies 10/18/21 11:30 MRI Lumbar Spine [MR lumbar spine wo con] Stat 10/19/21 10:00 FL spine 1V any level Routine Hospital Course (1) Lumbar disc herniation with radiculopathy: Patient was admitted with a severe radiculopathy. She underwent laminectomy the following day. She tolerated procedure well. Postop day 1 she was up and ambulating leg symptoms markedly improved. Back pain controlled. Excellent strength testing. Socially discharged home. Discharge orders instructions from the chart for further review. Total Time Total Time Spent Total Time Spent (In Minutes): 20 minutes Discharge Plan Discharge Items Patient Disposition: Home - Self-Care Reason For Visit: LUMBAR DISK HERNIATION Discharge Diagnosis: Lumbar disc herniation with radiculopathy Activity: As commented below Non-emergency contact: Primary Care Provider Call non-emergency contact if: you have any medication questions Follow-up/Referrals: Cesar Haq MD [Primary Care Provider] - Diet: Regular Addtl Attending Provider Instructions: ACTIVITY RECOMMENDATIONS: SELF CARE INSTRUCTIONS AFTER A LAMINECTOMY 1. No prolonged sitting (less than 30 minutes for the first 3 weeks after surgery). 2. No bending, lifting more than 5 pounds, or twisting (roll like a log when turning in bed). 3. You may shower 3 days after surgery if no drainage from wound. Thoroughly dry wound. Do not soak in the tub. 4. Please walk as much as you can for exercise. Gradually increase the distance that you walk as your endurance increases. 5. You may drive in 7-10 days if you are comfortable and no longer requiring pain medications. SPECIAL CARE INSTRUCTIONS: VERY IMPORTANT TO READ AND REVIEW A. Your surgical incision has been closed with a cosmetic suture under the skin that will dissolve in about 6 weeks. In 14 days, you can use a pair of clean scissors and cut the suture that is left outside of the skin at the ends of your incision. B. Complications are uncommon, but please contact us if you have any signs or symptoms of: 1. wound infection (fever higher than 102.5 degrees F, redness, separation of wound, drainage, or increasing pain from the incision) 2. blood clots in legs (pain, swelling, redness and warmth in legs) 3. urinary tract infection (fever higher than 102.5 degrees, burning upon urination or increased frequency of urination) 4. nerve problems (inability to walk on your toes or heels, numbness, loss of bowel or bladder control) 5. any other symptoms that concern you. C. Please call the office at if you have any concerns or question s about your operation or recovery. MANAGING PAIN AFTER SPINAL SURGERY 1. Narcotic medication is intended for short-term use and will be provided for surgical pain. Surgical pain usually lasts for a period of 4-6 weeks. Narcotic medication includes Percocet, Vicodin, Darvocet, Tylenol #3 or Lortab. 2. Longer-term pain is more appropriately treated with non-narcotic medication such as Tylenol ES. 3. Muscle spasm is not appropriately treated with narcotics. Muscle relaxers such as Soma, Flexeril or Skelaxin can be used along with Tylenol ES. 4. Remember that we all live with some "aches and pains". This is not unusual or uncommon after an injury or as we get older. 5. We will provide appropriate medication within the normal guidelines of their prescribed use. We will also be very cautious and aware of potential abuse and extended duration of patients' medication needs. 6. Please allow 2-3 days to process refills. Prescriptions will not be mailed but must be picked up at the office. FOLLOW UP VISIT: Keep your scheduled follow-up appointment. Any questions, please call the office at . Pending Studies at Discharge: No Stand-Alone Forms: [facility], Smoking Cessation Medications and DC Order Prescriptions: New oxycodone 5 mg tablet 5 mg PO Q6H PRN (Reason: pain, severe) Qty: 20 0RF Continued lisinopril 5 mg tablet 5 mg PO QAM spironolactone [Aldactone] 25 mg tablet 75 mg PO QAM methocarbamol 500 mg tablet 500 mg PO BID PRN (Reason: Muscle Pain) tramadol 50 mg tablet 50 mg PO DAILY PRN (Reason: Pain) Simponi 100 mg/mL pen injector 100 mg subcut MONTHLY Label Comments: TAKES ON 7TH EVERY MONTH Rx Instructions: take on 7th of every month pantoprazole [Protonix] 40 mg tablet,delayed release (DR/EC) 40 mg PO QAM levothyroxine 50 mcg tablet 50 mcg PO QAM carbamazepine [Tegretol XR] 100 mg Tablet Extended Release 12 Hr 100 mg PO BID PRN (Reason: TRIGEMINAL NEURALGIA) potassium 99 mg Tablet 99 mg PO QAM pramipexole 1 mg tablet 1 mg PO HS topiramate 50 mg tablet 150 mg PO QAM indomethacin 25 mg capsule See Rx Instructions .ROUTE .COMPLEX Rx Instructions: take 2 capsules in the morning with food,1 capsule at lunch with food and 2 capsules in evening with food hydroxychloroquine 200 mg tablet 200 mg PO QAM gabapentin 300 mg capsule See Rx Instructions .ROUTE .COMPLEX Rx Instructions: take 1 capsule orally in the morning and 2 capsules at night cholecalciferol (vitamin D3) [Vitamin D3] 50 mcg (2,000 unit) Tablet 200 mcg PO QAM Rx Instructions: 4 tablet dose folic acid 1 mg Tablet 1 mg PO QAM oxycodone 5 mg tablet 5 mg PO Q6H PRN (Reason: pain) Qty: 12 0RF Rx Instructions: Initial Treatment prednisone 20 mg tablet See Rx Instructions .ROUTE .COMPLEX Qty: 13 0RF Rx Instructions: 60mg x 2 days, 40mg x 2 days, 20mg x 2 days, 10mg x 2 days Discharge Orders: Discharge Order (Routine); Ordered 10/20/21 Ordered By: Joel Davidson Admission Data Admit Date/Time: 10/18/21 16:12 Attending Provider: Joel Davidson Admit Provider: Joel Davidson Primary Care Provider: Cesar Haq Other Providers: Aidan Vázquez ; Joel Davidson ; Alisa Luis
--- NOTE | 2021-10-20 13:46 | Hospitalist Progress Note ---
Date of Service October 20, 2021 Assessment & Plan (1) Acute pain of left hip: (2) Lumbar disc herniation with radiculopathy: (3) Rheumatoid arthritis: (4) Sjogren's disease: (5) Hypertension: Plan This is a 56-year-old female who has significant past medical history of rheumatoid arthritis, Sjogren's syndrome, small fiber neuropathy, fibromyalgia, restless leg syndrome, history of occipital and trigeminal neuralgia, HTN, hypothyroidism, history of PUD who presents to ER 10/18 secondary to complaint of left hip pain. MRI L spine: Large left paracentral disc extrusion versus sequestered fragment at L2-L3 with superior subligamentous migration. This results in severe narrowing of the left lateral recess and moderate narrowing of the left neural foramen at this level. 2. Severe multilevel facet arthrosis, most pronounced at L4-L5. This results in mild anterolisthesis. Mild to moderate central canal stenosis and severe narrowing of the right neural foramen at L4-L5. Acute left hip pain Lumbar disc herniation with radiculopathy s/p Lumbar laminotomy with excision of herniated free fragment L2-L3 on the left by Dr. Davidson on 10/19/21 consulted for medical management Diet/pain mx, pt/ot and DVT px per orthospine. Pt reports improvement in LLE redicular symptoms, pt comfortable. Hypokalemia -patient does have chronic hypokalemia, patient reports she eats diet rich in potassium and uses [id number] potassium supplement, patient made aware to follow-up with PCP and repeat blood test in a week time upon discharge. Rheumatoid arthritis Sjogren disease follows [facility] Rheum Dr. Burris daily plaquenil (held by Dr. Davidson) and monthly inj of golimumab HTN Continue lisinopril and Aldactone Monitor blood pressure Small fiber neuropathy Fibromyalgia History of occipital and trigeminal neuralgia Hemicrania continua Patient on gabapentin, indomethacin and Topamax as outpatient Follows multiple specialists Hx of MRSA contact precautions ordered Hypothyroidism Continue levothyroxine RLS Continue pramipexole DVT prophylaxis: Per primary FULL CODE PCP: Dr. Haq ([place]) Admission and Anticipated Discharge Date Admission Date: October 18, 2021 Subjective Patient seen and examined at bedside as a follow-up of medical consult for status post Lumbar laminotomy with excision of herniated free fragment L2-L3 on the left by Dr. Davidson on 10/19/2021. Patient was lying in bed, on room air, comfortable, AOx4, reports continued improvement in her LLE radicular pain, reports pain at incision site minimal, denies any headache/dizziness/sore throat/cough/chest pain/palpitations/other review of symptoms. Reports eating okay. Physical Exam Physical Exam: GENERAL: Alert and oriented x3. NAD, on RA. HEENT: No pallor, no icterus. Pupils equal, round and reactive to light. Oral mucosa moist. NECK: No JVD, no neck masses. HEART: S1 and S2 heard. Regular rate and rhythm. No murmur, no gallop. RESPIRATORY SYSTEM: Normal AP diameter. No accessory muscle use. No wheezing, no crackles. ABDOMEN: Soft, bowel sounds present, nontender, no distention. CENTRAL NERVOUS SYSTEM: No facial droop. Speech is clear. Obeys simple commands. Moves extremities. EXTREMITIES: No edema, no erythema seen. Low back with dressing with minimal soakage. Distal neurovascular status normal. b/l hands RA changes noted. Results & Data Results & Data ([facility]) Vital Signs (Past 12 Hours) Vital Signs Temp Pulse Pulse Resp BP Pulse Ox O2 Del Method 10/20/21 11:45 37 C 74 89 16 109/68 99 10/20/21 07:41 37 C 89 16 109/68 99 Room Air 10/20/21 02:53 70 95/62 L 10/20/21 02:27 71 16 99/65 L 10/20/21 02:18 36.9 C 62 16 88/51 L 97 Room Air
== END 2021-10-20 12:09 | disposition home or self-care (01) | DRG 520 ==
LOC: ED 11:02 → 3E 16:12

== ENCOUNTER 2022-01-01 06:01 | Inpatient (IN) ==
--- NOTE | 2021-12-18 13:28 | PAT Medication Instructions ---
Medication Instructions Date of Service December 18, 2021 Home Medications Medication Instructions Recorded prednisone 20 mg tablet See Rx Instructions .Route 10/16/21 .COMPLEX #13 tabs spironolactone 25 mg tablet (Aldactone) 75 mg PO QAM lisinopril 5 mg tablet 5 mg PO QAM levothyroxine 50 mcg tablet 50 mcg PO QAM pantoprazole 40 mg tablet,delayed release (Protonix) 40 mg PO QAM golimumab 100 mg/mL subcutaneous pen injector (Simponi) 100 mg subcut MONTHLY methocarbamol 500 mg tablet 500 mg PO BID PRN carbamazepine 100 mg tablet,extended release,12 hr (Tegretol XR) 100 mg PO BID PRN potassium 99 mg tablet 99 mg PO QAM pramipexole 1 mg tablet 1 mg PO HS prednisone 20 mg tablet See Rx Instructions .Route .COMPLEX cholecalciferol (vitamin D3) 50 mcg (2,000 unit) tablet (Vitamin D3) 200 mcg PO QAM folic acid 1 mg tablet 1 mg PO QAM gabapentin 300 mg capsule See Rx Instructions .Route .COMPLEX hydroxychloroquine 200 mg tablet 200 mg PO QAM indomethacin 25 mg capsule See Rx Instructions .Route .COMPLEX topiramate 50 mg tablet 50 mg PO TID Continue as directed prednisone 20 mg tablet See Rx Instructions .Route .COMPLEX gabapentin 300 mg capsule See Rx Instructions .Route .COMPLEX ASK your prescriber and surgeon golimumab 100 mg/mL subcutaneous pen injector (Simponi) 100 mg subcut MONTHLY hydroxychloroquine 200 mg tablet 200 mg PO QAM indomethacin 25 mg capsule See Rx Instructions .Route .COMPLEX DO NOT take the morning of surgery spironolactone 25 mg tablet (Aldactone) 75 mg PO QAM lisinopril 5 mg tablet 5 mg PO QAM methocarbamol 500 mg tablet 500 mg PO BID PRN potassium 99 mg tablet 99 mg PO QAM cholecalciferol (vitamin D3) 50 mcg (2,000 unit) tablet (Vitamin D3) 200 mcg PO QAM folic acid 1 mg tablet 1 mg PO QAM Take morning of surgery With a small sip of water, OTHERWISE NOTHING TO EAT OR DRINK AFTER MIDNIGHT: levothyroxine 50 mcg tablet 50 mcg PO QAM pantoprazole 40 mg tablet,delayed release (Protonix) 40 mg PO QAM carbamazepine 100 mg tablet,extended release,12 hr (Tegretol XR) 100 mg PO BID PRN(if needed) topiramate 50 mg tablet 50 mg PO TID Take evening before surgery methocarbamol 500 mg tablet 500 mg PO BID PRN(if needed) carbamazepine 100 mg tablet,extended release,12 hr (Tegretol XR) 100 mg PO BID PRN(if needed) pramipexole 1 mg tablet 1 mg PO HS topiramate 50 mg tablet 50 mg PO TID Other Notes If you have any questions please call us at [phone] or [phone] or [phone] or [phone]
--- NOTE | 2021-12-25 11:49 | Anesthesiology Consultation ---
Date of Service December 25, 2021 Assessment & Plan (1) Encounter for pre-operative examination: - discharge summary 10/20/21 [facility]: "...rheumatoid arthritis, Sjogren's syndrome, small fiber neuropathy, fibromyalgia, restless leg syndrome, history of occipital and trigeminal neuralgia, HTN, hypothyroidism, history of PUD who presents to ER 10/18 secondary to complaint of left hip pain. MRI L spine: Large left paracentral disc extrusion versus sequestered fragment at L2-L3 with superior subligamentous migration. This results in severe narrowing of the left lateral recess and moderate narrowing of the left neural foramen at this level. Severe multilevel facet arthrosis, most pronounced at L4-L5. This results in mild anterolisthesis. Mild to moderate central canal stenosis and severe narrowing of the right neural foramen at L4-L5...s/p Lumbar laminotomy with excision of herniated free fragment L2-L3 on the left by Dr. Davidson on 10/19/21...Hypokalemia -patient does have chronic hypokalemia, patient reports she eats diet rich in potassium and uses [id number] potassium supplement, patient made aware to follow-up with PCP and repeat blood test in a week time upon discharge. Rheumatoid arthritis. Sjogren disease. follows [facility] Rheum Dr. Burris, daily plaquenil (held by Dr. Davidson) and monthly inj of golimumab..." Chart Review Chart Review: Acceptable Risk for Surgery and Patient seen in Pre Admission Testing Teaching & Discussion Pre-Anesthesia Teaching/Discussion Notes: Instructed NPO after midnight before surgery, except medications with 15 cc of water. Medication instructions provided according to the PAT guidelines. History Surgery Operation Date: 01/01/22 10:15 Proposed Procedures p C4-C5 Anterior Cervical Discectomy Fusion, Spinal Cord Monitoring - Joel Davidson, DO Height/Weight Height: 5 ft 2 in Weight: 51.7 kg Allergies Allergy/AdvReac Type Severity Reaction Status Date / Time leflunomide Allergy Intermediate had a Verified 12/18/21 12:43 cervical dystonic episode tetanus toxoid, adsorbed Allergy Intermediate fever and Verified 12/18/21 12:43 streaking up the arm Medications Home Medications Medication Instructions Recorded Confirmed Last Taken spironolactone 25 mg tablet 75 mg PO QAM 10/31/17 12/18/21 10/17/21 (Aldactone) lisinopril 5 mg tablet 5 mg PO QAM 02/16/18 12/18/21 10/17/21 levothyroxine 50 mcg tablet 50 mcg PO QAM 01/20/19 12/18/21 10/17/21 pantoprazole 40 mg tablet,delayed 40 mg PO QAM 11/21/19 12/18/21 02/23/21 release (Protonix) golimumab 100 mg/mL subcutaneous 100 mg subcut MONTHLY 10/30/20 12/18/21 09/27/21 pen injector (Simponi) methocarbamol 500 mg tablet 500 mg PO BID PRN Muscle Pain 12/16/20 12/18/21 Unknown carbamazepine 100 mg 100 mg PO BID PRN TRIGEMINAL 02/05/21 12/18/21 Unknown tablet,extended release,12 hr NEURALGIA (Tegretol XR) potassium 99 mg tablet 99 mg PO QAM 02/05/21 12/18/21 10/17/21 pramipexole 1 mg tablet 1 mg PO HS 02/05/21 12/18/21 10/17/21 prednisone 20 mg tablet See Rx Instructions .Route 10/16/21 12/18/21 10/17/21 .COMPLEX #13 tabs cholecalciferol (vitamin D3) 50 200 mcg PO QAM 10/18/21 12/18/21 10/17/21 mcg (2,000 unit) tablet (Vitamin D3) folic acid 1 mg tablet 1 mg PO QAM 10/18/21 12/18/21 10/17/21 gabapentin 300 mg capsule See Rx Instructions .Route .COMPLEX 10/18/21 12/18/21 10/17/21 hydroxychloroquine 200 mg tablet 200 mg PO QAM 10/18/21 12/18/21 10/17/21 indomethacin 25 mg capsule See Rx Instructions .Route .COMPLEX 10/18/21 12/18/21 10/17/21 topiramate 50 mg tablet 50 mg PO TID 10/18/21 12/18/21 10/17/21 Past Medical History Medical History (Updated 12/25/21 @ 12:03 by Melina Cooney PA-C) Benign microscopic hematuria Cervical facet syndrome Chronic constipation Finn-Danlos syndrome, type 3 Fibromyalgia Hemicrania continua History of COVID-19 04/2021>denies hospitalization, SYMPTOMS RESOLVED Hx of iron deficiency anemia Hx of peptic ulcer Hypertension controlled, stable per pt Hypothyroidism Migraine headache Nausea and vomiting after administration of anesthetic agent denies needing scop patch Neutropenia Occipital neuralgia Renal insufficiency PCP MANAGES Restless leg syndrome Rheumatoid arthritis Right trigeminal neuralgia Sjogren's disease Small fiber neuropathy Patient denies h/o stroke, seizures, heart attack, heart failure, DM, blood clots or blood transfusions. Exercise / Class Metabolic Activity II 4-5 Yardwork/Stairs/Walk up hill (denies CP or SOB with 1 FOS) Past Family History Family History Mother Hypertension Grandfather (Paternal) Laryngeal cancer SMOKER Grandmother (Maternal) Heart disease Uncle Heart disease MATERNAL Other No family history of adverse response to anesthesia No family history of bleeding disorder Past Surgical History Surgical History H/O adenoidectomy and bilateral inferior turbinate reduction 02/23/21: Grade 1 view, MAC 3, ETT 7. H/O wisdom tooth extraction H/O: hysterectomy History of bladder repair surgery X2 History of breast biopsy BENIGN-LEFT SIDE History of carpal tunnel release of both wrists History of colonoscopy History of dilation and curettage History of esophagogastroduodenoscopy (EGD) History of foot surgery RT BIG TOE REPAIR History of hip surgery LEFT WITH BONE GRAFT History of left oophorectomy History of lumbar laminectomy L2-L3 laminectomy 10/19/21: Grade 1 view, MAC 3, ETT 7. History of surgery NERVE BLOCK FOR TRIGEMINAL NEURALGIA Hx of LASIK Past Anesthesia History No Hx of Anesthesia Complications and No Family Hx of Anesthesia Complications History of PONV No Hx of Motion Sickness and History of PONV (denies needing scop patch) Social History Smoking Status: Never smoker Do You Dip or Chew Tobacco: No Hx Alcohol Use: No Hx Substance Use: No substance use type: does not use Review of Systems Snoring, denies witnessed apneas. Reports negative sleep study several yrs ago. Patient denies chest pain, shortness of breath, dyspnea on exertion, reflux, fever, chills, cough, wheezing, or palpitations. Physical Exam Vital Signs Vitals BP 109/74 P 91 SP02 100% on RA RESP 18 Physical Full cervical extension range of motion without pain TMD 3.5 finger breadths Mallampati Score 2 Dentition: intact, denies chipped or loose teeth; reports recent dental abscess surgery 3 wks ago-pt states surgeon's office is aware; denies caps/crowns, implants or bridges Lungs: normal respiratory effort. Clear throughout to auscultation, no adventitious breath sounds Cardiac: regular rate and rhythm, no murmurs noted Carotid arteries: negative bruit bilat Lab Results Anesthesia Preop Results Results Anesthesia Widget: WBC 5.17 K/ul (4.8-10.8) 12/25/21 Hgb 12.1 g/dl (12.0-16.0) 12/25/21 Hct 37.4 % (34.1-44.9) 12/25/21 Plt 297 K/uL (130-400) 12/25/21 Na 139 mmol/L (136-145) 12/25/21 K 3.9 mmol/L (3.5-5.1) 12/25/21 Cl 108 mmol/L (98-107) H 12/25/21 CO2 27 mmol/L (21-32) 12/25/21 BUN 21 mg/dl (6-23) 12/25/21 Creat 0.92 mg/dl (0.6-1.2) 12/25/21 Glucose Level 88 mg/dl (70-99(Fasting)) 12/25/21 PT 11.4 Seconds (9.0-12.0) 12/25/21 PTT 26.6 Seconds (21.0-31.0) 12/25/21 INR 1.1 (0.9-1.1) 12/25/21 Urine Color Yellow 12/25/21 Urine Appearance Clear (Clear) 12/25/21 Urine pH 7.5 (4.5-7.5) 12/25/21 Urine Specific [place] 1.011 (1.000-1.030) 12/25/21 Urine Protein Negative (Negative) 12/25/21 Urine Glucose (UA) Negative (Negative) 12/25/21 Urine Ketones Negative (Negative) 12/25/21 Urine Blood Trace (Negative) H 12/25/21 Urine Nitrite Negative (Negative) 12/25/21 Urine Bilirubin Negative (Negative) 12/25/21 Urine Urobilinogen Negative (Negative) 12/25/21 Urine Leukocyte Esterase Negative (Negative) 12/25/21 Urine WBC (Auto) 0 /hpf (0-5) 12/25/21 Urine RBC (Auto) 0-4 /hpf (0-4) 12/25/21 Urine Hyaline Casts (Auto) 0 /lpf (0-5) 12/25/21 Urine Epithelial Cells (Auto) 5-10 /lpf (0-5) H 12/25/21 Urine Bacteria (Auto) Negative (Negative) 12/25/21 Blood Type AB Positive 12/25/21 Antibody Screen NEGATIVE 12/25/21 Testing Electrocardiogram Date: 02/09/21 NSR, rate 84 bpm Rightward axis Chest X-Ray Date: 12/25/21 No acute process COVID-19 Risk Screen Screening Information COVID-19 Screen Date: 12/18/21 Exposure 21 Days Family/Household +COVID Last 21 Days: No Exposure 10 Days Any COVID Exposure Last 10 Days: No Symptoms Last 10 Days Experienced COVID Sx Last 10 Days: No + COVID 0-90 Days COVID + in Last 0-90 Days: No
[~2022-01-01 06:01] MED LIST changes: +ACETAMINOPHEN 500 MG TAB PO SCH; -ADAL20KI; -ASPI-391 PO; -CHOL100010 PO; -CLR10 PO; +CeleBREX 200 MG CAP PO SCH; -GABA-113 PO; +GABAPENTIN 900 MG DOSE PO SCH; -LEVO75TA PO; +LR 15ML/HR IV SCH; -POTA99TA3 PO; -PRAM0.1212 PO; -PRED-301 PO; -SENNTAB23 PO; -SPIR25TA PO; -TOPI1CAP27 PO; -VRP40 PO; +ceFAZolin 2000MG 2,000 MG/15 ML SYR IV SCH
[2022-01-01] MEDS ORDERED: DEXAMETHASONE SOD INJ 4 MG/ML VIAL ONE ×2 (06:50→09:11)
[2022-01-01] MEDS ORDERED: PROPOFOL IV EMULSION 10 MG/ML 20 ML VIAL IV ONE (06:50)
[2022-01-01] MEDS ORDERED: MIDAZOLAM HCL 1 MG/ML 2ML VIAL ONE (06:50)
[2022-01-01] MEDS ORDERED: fentaNYL citrate 100 MCG/2 ML VIAL ONE (06:50)
[2022-01-01] MEDS ORDERED: ONDANSETRON INJ 2 MG/ML 2 ML VIAL ONE (06:50)
[2022-01-01] MEDS ORDERED: GLYCOPYRROLATE 0.2 MG/ML VIAL ONE (06:50)
[2022-01-01] MEDS ORDERED: LIDOCAINE 2% MPF LOCAL 5 ML VIAL INFIL ONE (06:50)
[2022-01-01] MEDS ORDERED: NEOSTIGMINE METHYLSULFATE 1 MG/ML 10ML VIAL ONE (06:50)
[2022-01-01] MEDS ORDERED: ROCURONIUM BROMIDE 10 MG/ML 5 ML VIAL IV ONE (06:50)
[2022-01-01] MEDS ORDERED: ARTIFICIAL TEARS OP OINT 3.5 GM TUBE ONE (07:03)
[2022-01-01] MEDS ORDERED: ONDANSETRON INJ 2 MG/ML 2 ML VIAL IV PRN ×2 (07:11→11:13)
[2022-01-01] MEDS ORDERED: ATROPINE SULFATE 0.1 MG/ML 10ML SYR IV PRN (07:11)
[2022-01-01] MEDS ORDERED: ePHEDrine sulfate 50 MG/ML AMP IV PRN (07:11)
[2022-01-01] MEDS ORDERED: HYDROmorphone INJ 2 MG/ML SYR/VIAL IV PRN (07:11)
[2022-01-01] MEDS ORDERED: ceFAZolin 330 MG/ML 1 GM VIAL ONE (07:33)
--- NOTE | 2022-01-01 07:38 | History & Physical Bridge Note ---
Date of Service January 01, 2022 History & Physical Bridge Note I have examined the patient, reviewed the History & Physical and in the interval since the performance of the History & Physical I have noted the following changes of clinical significance: no changes noted
--- NOTE | 2022-01-01 07:39 | History & Physical Report ---
Date of Service January 01, 2022 Assessment & Plan (1) Herniation of cervical intervertebral disc with radiculopathy: Plan: C4-C5 anterior cervical discectomy and fusion History of Present Illness Chief Complaint: Neck and arm pain Primary Care Provider: Cesar Haq MD This is a 56-year-old female who presents with worsening neck and arm symptoms after failed course of nonoperative care is here for surgical invention. Allergies Allergy/AdvReac Type Severity Reaction Status Date / Time leflunomide Allergy Intermediate had a Verified 01/01/22 06:33 cervical dystonic episode tetanus toxoid, adsorbed Allergy Intermediate fever and Verified 01/01/22 06:33 streaking up the arm Home Medications Medication Instructions Recorded Confirmed Type spironolactone 25 mg tablet 75 mg PO QAM 10/31/17 01/01/22 History (Aldactone) lisinopril 5 mg tablet 5 mg PO QAM 02/16/18 01/01/22 History levothyroxine 50 mcg tablet 50 mcg PO QAM 01/20/19 01/01/22 History pantoprazole 40 mg tablet,delayed 40 mg PO QAM 11/21/19 01/01/22 History release (Protonix) golimumab 100 mg/mL subcutaneous 100 mg subcut MONTHLY 10/30/20 01/01/22 History pen injector (Simponi) methocarbamol 500 mg tablet 500 mg PO BID PRN Muscle Pain 12/16/20 01/01/22 History carbamazepine 100 mg 100 mg PO BID PRN TRIGEMINAL 02/05/21 01/01/22 History tablet,extended release,12 hr NEURALGIA (Tegretol XR) potassium 99 mg tablet 99 mg PO QAM 02/05/21 01/01/22 History pramipexole 1 mg tablet 1 mg PO HS 02/05/21 01/01/22 History prednisone 20 mg tablet See Rx Instructions .Route 10/16/21 01/01/22 Rx .COMPLEX #13 tabs cholecalciferol (vitamin D3) 50 200 mcg PO QAM 10/18/21 01/01/22 History mcg (2,000 unit) tablet (Vitamin D3) folic acid 1 mg tablet 1 mg PO QAM 10/18/21 01/01/22 History gabapentin 300 mg capsule See Rx Instructions .Route .COMPLEX 10/18/21 01/01/22 History hydroxychloroquine 200 mg tablet 200 mg PO QAM 10/18/21 01/01/22 History indomethacin 25 mg capsule See Rx Instructions .Route .COMPLEX 10/18/21 01/01/22 History topiramate 50 mg tablet 50 mg PO TID 10/18/21 01/01/22 History Past Med/Surg History Medical History (Updated 01/01/22 @ 07:38 by Joel Davidson, DO) Benign microscopic hematuria Cervical facet syndrome Chronic constipation Finn-Danlos syndrome, type 3 Fibromyalgia Hemicrania continua History of COVID-19 04/2021>denies hospitalization, SYMPTOMS RESOLVED Hx of iron deficiency anemia Hx of peptic ulcer Hypertension controlled, stable per pt Hypothyroidism Migraine headache Nausea and vomiting after administration of anesthetic agent denies needing scop patch Neutropenia Occipital neuralgia Renal insufficiency PCP MANAGES Restless leg syndrome Rheumatoid arthritis Right trigeminal neuralgia Sjogren's disease Small fiber neuropathy Surgical History H/O adenoidectomy and bilateral inferior turbinate reduction 02/23/21: Grade 1 view, MAC 3, ETT 7. H/O wisdom tooth extraction H/O: hysterectomy History of bladder repair surgery X2 History of breast biopsy BENIGN-LEFT SIDE History of carpal tunnel release of both wrists History of colonoscopy History of dilation and curettage History of esophagogastroduodenoscopy (EGD) History of foot surgery RT BIG TOE REPAIR History of hip surgery LEFT WITH BONE GRAFT History of left oophorectomy History of lumbar laminectomy L2-L3 laminectomy 10/19/21: Grade 1 view, MAC 3, ETT 7. History of surgery NERVE BLOCK FOR TRIGEMINAL NEURALGIA Hx of LASIK Family History Mother Hypertension Grandfather (Paternal) Laryngeal cancer SMOKER Grandmother (Maternal) Heart disease Uncle Heart disease MATERNAL Other No family history of adverse response to anesthesia No family history of bleeding disorder Social History Smoking Status: Never smoker Second Hand Exposure: No; Do You Dip or Chew Tobacco: No; Hx Alcohol Use: No Hx Substance Use: No Preferred Language: Thai Communication Ability: Effective Visual Impairment: No Limitations Hearing Ability: Normal Manager Fire Required: No Beliefs That Will Affect Care: None marital status: Current Living Situation: Spouse and Family Current Living Situation Comment: 2 story house with family current occupational status: retired and disabled Feels Safe at Home: Yes Safety Concerns: Feels Safe At This Time Assistive Devices: None Assistive Devices Comment: 1 CONTACT>ADVISED Physical Exam Physical Exam: Patient is alert and oriented Heart regular rhythm Lungs clear Results & Data Results & Data ([facility]) Vital Signs (Past 12 Hours) Vital Signs Temp Pulse Resp BP Pulse Ox O2 Del Method 01/01/22 06:40 37.1 C 103 H 20 142/90 H 98 Room Air
[2022-01-01] MEDS ORDERED: FLOSEAL HEMOSTATIC MATRIX 10ML TOP ONE (09:06)
[2022-01-01] MEDS ORDERED: KETOROLAC 30 MG/ML VIAL ONE (09:13)
--- NOTE | 2022-01-01 09:15 | Operative Report ---
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 #2 anterior cervical arthrodesis C4-C5. #3 placement of 6 mm spiral cage filled with I factor C4-C5. #4 application of K2 M plate and screws across C4-C5. Surgeon Joel Davidson, Trauma Director Arsalan De La Paz Estimated Blood Loss 10 Findings Consistent with Post-Op Diagnosis Specimens None Indications This is a 56-year-old female who presents above-mentioned diagnosis after failing course of nonoperative care is here for surgical intervention. Description of Procedure Patient was met with identified informed consent obtained. Patient was then taken to the operative suite underwent a patient placed in a supine position Rafael table with head Marquez jiménez. All bony prominences well-padded eyes inspected to ensure no external pressure placed upon them. This point the anterior cervical spine was prepped and draped in a sterile fashion. The assistance of fluoroscopy identified the C4-C5 disc base and a transverse incision was placed on the right anterior aspect of the cervical spine overlying this region. Blunt dissection with assistance of bipolar electrocautery was performed down to and exposing the anterior cervical spine from C4-C5. A self- retaining retractors placed. Then performed a complete discectomy C4-C5 out to the uncovertebral joints bilaterally. [place] distracting pins utilized to assist in visualization. Removed all posterior annular fibers longitudinal ligament bilateral foraminotomies performed. Endplates were then burred to subcortical bleeding bone and a 6 mm spiral cage with I factor tapped in position. Distracting apparatus was removed and a K2 M plate and screws applied with the assistance of fluoroscopy. The incision was then copiously irrigated explored to ensure no damage to surrounding structures remaining bleeding. 10 round NADIA drain inserted. The incision was then closed with 2 Vicryl in a fashion of 4 Monocryl for final skin closure. Steri-Strip sterile dressings placed. Patient waken taken to PACU in stable condition. Please note spinal cord monitoring was utilized at the procedure no changes noted. Lastly Arsalan De La Paz was present at the entire surgery and while the patient positioning complex portions of the surgery and final skin closure. I attest to the content of the Intraoperative Record and any orders documented therein. Any exceptions are noted below.
[2022-01-01] MEDS: fentaNYL citrate 100 MCG/2 ML VIAL IV PRN ×2 (09:50→10:04)
--- NOTE | 2022-01-01 10:02 | Fluoroscopy Report ---
INTRAOPERATIVE RADIOGRAPHS CLINICAL HISTORY: C4-C5 spinal fusion. Fluoroscopy time: 9 seconds. FINDINGS: 2 spot fluoroscopic views of the cervical spine are presented. There has been discectomy at C4-C5 with anterior fusion at this level. The orthopedic hardware appears intact. An endotracheal tu be is in place. IMPRESSION: Intraoperative images from cervical spinal fusion surgery as above. Electronically signed by: Alex Jones M.D. 01/01/2022 10:01 AM
--- NOTE | 2022-01-01 10:51 | Anesthesiology Progress Note ---
Date of Service January 01, 2022 Anesthesia Post Procedure Vital Signs Vital Signs: Temp Pulse Pulse Resp BP Pulse Ox O2 Del Method 01/01/22 10:40 68 20 116/73 98 Room Air 01/01/22 10:30 36.4 C L 79 18 117/80 95 Room Air 01/01/22 10:20 88 12 124/71 98 Room Air 01/01/22 10:10 67 16 112/63 100 Room Air 01/01/22 10:00 72 16 113/73 100 Room Air 01/01/22 09:50 85 20 134/77 100 Room Air 01/01/22 09:40 83 16 123/81 100 Room Air 01/01/22 09:35 81 16 126/83 100 Nasal Cannula 01/01/22 09:29 36.2 C L 98 H 16 126/80 100 Nasal Cannula 01/01/22 06:40 37.1 C 103 H 20 142/90 H 98 Room Air O2 Flow Rate 01/01/22 10:40 01/01/22 10:30 01/01/22 10:20 01/01/22 10:10 01/01/22 10:00 01/01/22 09:50 01/01/22 09:40 01/01/22 09:35 2 01/01/22 09:29 2 01/01/22 06:40 Pain Intensity Right Neck: Pain Intensity: 3 Transfer of Care Handoff Completed per policy Notes Mental Status: alert / awake / arousable and participated in evaluation Patient Amnestic to Procedure: Yes Nausea / Vomiting: adequately controlled Pain: adequately controlled Airway Patency, RR, SpO2: stable & adequate BP & HR: stable & adequate Hydration State: stable & adequate Anesthetic Complications: no major complications apparent and Pt Satisfied with anesthetic care
[2022-01-01] MEDS ORDERED: HYDROmorphone INJ 1 MG/ML SYRINGE IV PRN (11:13)
[2022-01-01] MEDS ORDERED: MAGNESIUM HYDROXIDE SUSP 30 ML UDC PO PRN (11:13)
[2022-01-01] MEDS ORDERED: dexAMETHasone 8 MG in SYRINGE 0 ML IV PRN (11:13)
[2022-01-01] MEDS ORDERED: ALUMINUM/MAGNESIUM SUSP 30 ML UDC PO PRN (11:13)
[2022-01-01] MEDS ORDERED: hydrOXYzine HCl 25 MG TAB PO PRN (11:13)
[2022-01-01] MEDS ORDERED: RACEPINEPHRINE 2.25% NEBU SOLN 0.5 ML VIAL INH PRN (11:13)
[2022-01-01] MEDS ORDERED: LORazepam 0.5 MG in SYRINGE 0 ML IV PRN (11:13)
[2022-01-01] MEDS ORDERED: oxyCODONE HCL IR 5 MG TAB (IMMEDIATE RELEASE) PO PRN (11:13)
[2022-01-01] MEDS ORDERED: ACETAMINOPHEN 500 MG TAB PO PRN (11:13)
[2022-01-01] MEDS ORDERED: SOD PHOSPHATE/SOD BIPHOSPHATE ENEMA 132 ML BTL PR PRN (11:13)
[2022-01-01] MEDS ORDERED: HYDROmorphone INJ 0.5 MG/0.5 ML SYR IV PRN (11:13)
[2022-01-01] MEDS ORDERED: METOCLOPRAMIDE HCL INJ 5 MG/ML 2 ML VIAL IV PRN (11:13)
[2022-01-01] MEDS ORDERED: FAMOTIDINE 20 MG TAB PO PRN (11:13)
[2022-01-01] MEDS ORDERED: NALOXONE HCL 0.4 MG/1 ML VIAL/CARP IV PRN (11:13)
[2022-01-01] MEDS ORDERED: ONDANSETRON 4 MG OD TAB PO PRN (11:13)
[2022-01-01] MEDS ORDERED: PROMETHAZINE HCL 12.5 MG in SODIUM CHLORIDE 0.9% 50 ML IV PRN (11:13)
[2022-01-01] MEDS ORDERED: ACETAMINOPHEN 1,000 MG/100 ML VIAL IV PRN (11:13)
[2022-01-01] MEDS ORDERED: bisacodyL 10 MG SUPP PR PRN (11:13)
[2022-01-01] MEDS ORDERED: LORazepam 0.5 MG TAB PO PRN (11:13)
[2022-01-01] MEDS ORDERED: diphenhydrAMINE Capsule 25 MG CAP PO PRN (11:13)
--- NOTE | 2022-01-01 11:39 | Hospitalist Consultation ---
Date of Consultation January 01, 2022 Assessment & Plan (1) Herniation of cervical intervertebral disc with radiculopathy: - POD#0 s/p C4-C5 ACDF, 1 NADIA drain placed. No complications reported. - Pain/ABX/IVF/diet/drain management/transfusion needs/activity per primary team - Rescue Narcan ordered for over sedation PRN - VTE prophylaxis per primary service- SCDs in place - CBC and BMP in AM. - Baseline renal function: 0.92 12/25/21 - Baseline Hgb: 12.1 12/25/21 - History of mildly impaired renal function / daily indomethacin use for headaches. - History of leukopenia. No known cause. (2) Hypertension: - Hold lisinopril, Aldactone until POD #2 ideally, however can restart tomorrow on POD#1 if SBP > 150 and renal function at baseline. - Monitor BP. (3) Hypothyroidism: - Continue Synthroid 50 mcg daily. (4) Rheumatoid arthritis: - RA + Sjogrens syndrome. - Plaquenil daily, monthly injections of golimumab. - Follows Dr. Burris with [facility]. (5) Fibromyalgia: - Hx fibromyalgia, trigeminal and occipital neuralgia, small fiber neuropathy. - Continue carbamazepine, Robaxin, gabapentin, Topamax; hold indomethacin until POD #1. (6) Restless leg syndrome: - Continue pramipexole HS. (7) History of peptic ulcer disease: - Documented history of, no prior GI notes or EGD. - Continue Protonix. Plan - Admitted to med/surg per primary team. - SCDs, ordered per primary team. - Full Code. - MRSA contact precautions in place (MRSA wound infxn 02/23/21) Supervising Physician Co-Signing Physician Notes Patient seen and examined, chart reviewed, case discussed with Lolita Rodrigez PA-C and I agree with the assessment and plan as above except as otherwise noted Labs and images reviewed Did well operatively. Postop doing well without fever, chills, sweats, chest pain, cough, sputum production, numbness/tingling/weakness. No abdominal pain. Normotensive, is not tachycardic. Following morning is anxious to get home, breathing is unlabored, no acute concerns. 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 Agree with snow blank as noted above History of Present Illness Attending Physician: Joel Davidson, DO History of Present Illness Cheryl Dalton is a 56-year-old female with past medical history significant for hypertension, hypothyroidism, restless leg syndrome, Sjogren's syndrome, rhe umatoid arthritis and back pain who was admitted today, 01/01 for c4-c5 ACDF with Dr. Davidson for worsening neck and arm pain after failing conservative nonoperative care. Hospitalist group was consulted for post-operative medication management. Today, she is POD#0 and feels well. Denies fever/chills, weakness, chest pain, palpitations, shortness of breath, cough, orthopnea, abdominal pain, nausea, vomiting, numbness, tingling, weakness. Eating lunch at time of visit. Pain free. Allergies Allergy/AdvReac Type Severity Reaction Status Date / Time leflunomide Allergy Intermediate had a Verified 01/01/22 06:33 cervical dystonic episode tetanus toxoid, adsorbed Allergy Intermediate fever and Verified 01/01/22 06:33 streaking up the arm Home Medications Medication Instructions Recorded Confirmed Type spironolactone 25 mg tablet 75 mg PO QAM 10/31/17 01/01/22 History (Aldactone) lisinopril 5 mg tablet 5 mg PO QAM 02/16/18 01/01/22 History levothyroxine 50 mcg tablet 50 mcg PO QAM 01/20/19 01/01/22 History pantoprazole 40 mg tablet,delayed 40 mg PO QAM 11/21/19 01/01/22 History release (Protonix) golimumab 100 mg/mL subcutaneous 100 mg subcut MONTHLY 10/30/20 01/01/22 History pen injector (Simponi) methocarbamol 500 mg tablet 500 mg PO BID PRN Muscle Pain 12/16/20 01/01/22 History carbamazepine 100 mg 100 mg PO BID PRN TRIGEMINAL 02/05/21 01/01/22 History tablet,extended release,12 hr NEURALGIA (Tegretol XR) potassium 99 mg tablet 99 mg PO QAM 02/05/21 01/01/22 History pramipexole 1 mg tablet 1 mg PO HS 02/05/21 01/01/22 History prednisone 20 mg tablet See Rx Instructions .Route 10/16/21 01/01/22 Rx .COMPLEX #13 tabs cholecalciferol (vitamin D3) 50 200 mcg PO QAM 10/18/21 01/01/22 History mcg (2,000 unit) tablet (Vitamin D3) folic acid 1 mg tablet 1 mg PO QAM 10/18/21 01/01/22 History gabapentin 300 mg capsule See Rx Instructions .Route .COMPLEX 10/18/21 01/01/22 History hydroxychloroquine 200 mg tablet 200 mg PO QAM 10/18/21 01/01/22 History indomethacin 25 mg capsule See Rx Instructions .Route .COMPLEX 10/18/21 01/01/22 History topiramate 50 mg tablet 50 mg PO TID 10/18/21 01/01/22 History oxycodone 5 mg tablet 5 mg PO Q6H PRN pain, severe #30 01/01/22 Rx tabs tramadol 50 mg tablet 50 mg PO Q6H PRN pain, moderate 01/01/22 Rx #30 tabs Patient History Medical History Benign microscopic hematuria Cervical facet syndrome Chronic constipation Finn-Danlos syndrome, type 3 Fibromyalgia Hemicrania continua History of COVID-19 04/2021>denies hospitalization, SYMPTOMS RESOLVED Hx of iron deficiency anemia Hx of peptic ulcer Hypertension controlled, stable per pt Hypothyroidism Migraine headache Nausea and vomiting after administration of anesthetic agent denies needing scop patch Neutropenia Occipital neuralgia Renal insufficiency PCP MANAGES Restless leg syndrome Rheumatoid arthritis Right trigeminal neuralgia Sjogren's disease Small fiber neuropathy Surgical History H/O adenoidectomy and bilateral inferior turbinate reduction 02/23/21: Grade 1 view, MAC 3, ETT 7. H/O wisdom tooth extraction H/O: hysterectomy History of bladder repair surgery X2 History of breast biopsy BENIGN-LEFT SIDE History of carpal tunnel release of both wrists History of colonoscopy History of dilation and curettage History of esophagogastroduodenoscopy (EGD) History of foot surgery RT BIG TOE REPAIR History of hip surgery LEFT WITH BONE GRAFT History of left oophorectomy History of lumbar laminectomy L2-L3 laminectomy 10/19/21: Grade 1 view, MAC 3, ETT 7. History of surgery NERVE BLOCK FOR TRIGEMINAL NEURALGIA Hx of LASIK Family History Mother Hypertension Grandfather (Paternal) Laryngeal cancer SMOKER Grandmother (Maternal) Heart disease Uncle Heart disease MATERNAL Other No family history of adverse response to anesthesia No family history of bleeding disorder Social History Smoking Status: Never smoker Second Hand Exposure: No; Do You Dip or Chew Tobacco: No; Hx Alcohol Use: No Hx Substance Use: No Preferred Language: Kinyarwanda Communication Ability: Effective Visual Impairment: No Limitations Hearing Ability: Normal Chief Risk Officer Required: No Beliefs That Will Affect Care: None marital status: Current Living Situation: Spouse and Family Current Living Situation Comment: 2 story house with family current occupational status: retired and disabled Feels Safe at Home: Yes Safety Concerns: Feels Safe At This Time Assistive Devices: None Assistive Devices Comment: 1 CONTACT>ADVISED Review of Systems Review of Systems: Constitutional: No fever/chills, weakness, fatigue, myalgias, anorexia, night sweats Eyes: No diplopia, no worsening or blurred vision ENT: normal hearing, no trouble swallowing Respiratory: No cough, sputum, dyspnea at rest or on exertion Cardiovascular: No chest pain, tightness or palpitations Abdomen: No pain, nausea, vomiting, diarrhea or constipation : Denies dysuria, hematuria, increased urgency/frequency, urinary retention Musculoskeletal: No joint pain, calf pain, swelling Neurologic: No weakness, numbness/tingling, or balance problems Psychiatric: No anxiety or depression Skin: No rash or itch Physical Exam Physical Exam: General: awake, alert, no apparent distress Head: Normocephalic, atraumatic ENT: PERRL, EOMI, no pharyngeal exudate, mucous membranes moist Chest: Clear to auscultation, on room air, no adventitious breath sounds Cardiac: Regular rate and rhythm, no murmur, no JVD, normal peripheral pulses, good capillary refill Abdominal: NABS x 4 quadrants, soft, nontender to palpation, no rebound, guarding or tenderness Extremities: Normal inspection, no peripheral edema or erythema, calfs nontender to palpation Psych: Normal mood and affect Neuro: AAO x 3, strength intact bilaterally and rated 5/5, no motor deficits, speech is clear, no peripheral sensory deficits Skin: no rash or erythema Results & Data Results & Data ([facility]) Vital Signs (Past 12 Hours) Vital Signs Temp Pulse Pulse Resp BP Pulse Ox Pulse Ox 01/01/22 11:29 36.8 C 80 16 121/75 98 01/01/22 11:19 37 C 71 16 118/73 98 01/01/22 11:13 98 01/01/22 11:05 90 16 98 01/01/22 10:40 68 20 116/73 98 01/01/22 10:30 36.4 C L 79 18 117/80 95 01/01/22 10:20 88 12 124/71 98 01/01/22 10:10 67 16 112/63 100 01/01/22 10:00 72 16 113/73 100 01/01/22 09:50 85 20 134/77 100 01/01/22 09:40 83 16 123/81 100 01/01/22 09:35 81 16 126/83 100 01/01/22 09:29 36.2 C L 98 H 16 126/80 100 01/01/22 06:40 37.1 C 103 H 20 142/90 H 98 O2 Del Method O2 Del Method O2 Flow Rate 01/01/22 11:29 Room Air 01/01/22 11:19 Room Air 01/01/22 11:13 Room Air 01/01/22 11:05 Room Air 01/01/22 10:40 Room Air 01/01/22 10:30 Room Air 01/01/22 10:20 Room Air 01/01/22 10:10 Room Air 01/01/22 10:00 Room Air 01/01/22 09:50 Room Air 01/01/22 09:40 Room Air 01/01/22 09:35 Nasal Cannula 2 01/01/22 09:29 Nasal Cannula 2 01/01/22 06:40 Room Air Diagnostic Findings Cervical Spine X-Ray 01/01/22 07:45 INTRAOPERATIVE RADIOGRAPHS CLINICAL HISTORY: C4-C5 spinal fusion. Fluoroscopy time: 9 seconds. FINDINGS: 2 spot fluoroscopic views of the cervical spine are presented. There has been discectomy at C4-C5 with anterior fusion at this level. The orthopedic hardware appears intact. An endotracheal tube is in place. IMPRESSION: Intraoperative images from cervical spinal fusion surgery as above. Electronically signed by: Alex Jones M.D. 01/01/2022 10:01 AM PG Care Time/CCT Total # of Minutes Spent Total Time Spent with Patient: Total time spent is greater than 50% in coordination of care (as documented) at patient's floor/unit and/or counseling patient: Coding Level of Care Code 16043 Inpt Consult Level 3 Diagnoses Herniation of cervical intervertebral disc with radiculopathy M50.10 Hypertension I10 Hypothyroidism E03.9 Rheumatoid arthritis M06.9 Fibromyalgia M79.7 Restless leg syndrome G25.81 History of peptic ulcer disease Z87.11
[2022-01-01] MEDS: LACTATED RINGER'S 1,000 ML IV SCH (11:42)
[2022-01-01] MEDS: traMADol HCL 50 MG TABLET PO PRN ×2 (12:34→22:19)
[2022-01-01] MEDS: TOPIRAMATE 50 MG TAB PO SCH ×2 (15:10→20:08)
[2022-01-01] MEDS: ceFAZolin 1000MG 1,000 MG/7.5 ML SYR IV SCH ×2 (15:10→23:10)
[2022-01-01] MEDS: FAMOTIDINE 20 MG TAB PO SCH (15:39)
[2022-01-01] MEDS: PANTOprazole 40 MG TAB PO SCH (20:07)
[2022-01-01] MEDS ORDERED: DOCUSATE SODIUM/SENNA 50/8.6MG TAB PO SCH (21:00)
[2022-01-01] MEDS ORDERED: PRAMIPEXOLE DIHYDROCHLO 0.5 MG TAB PO SCH (21:00)
[2022-01-02] MEDS: LACTATED RINGER'S 1,000 ML IV SCH (01:21)
[2022-01-02] MEDS: FAMOTIDINE 20 MG TAB PO SCH (02:07)
[2022-01-02] MEDS ORDERED: POLYETHYLENE (MIRALAX) 17 GM PACK PO SCH (06:00)
[2022-01-02] MEDS ORDERED: LEVOTHYROXINE SODIUM 50 MCG TABLET PO SCH (06:30)
[2022-01-02 06:38] LABS: Basophils # (auto) 0.03 K/uL (0-0.2); Basophils % (auto) 0.4 %; Eosinophils # (auto) 0.04 K/uL (0-0.50); Eosinophils % (auto) 0.5 %; Hematocrit (blood only) 34.3 % (34.1-44.9); Hemoglobin 11.2 g/dl (12.0-16.0); Immature Granulocytes # (auto) 0.01 K/uL (0.00-0.02); Immature Granulocytes % (auto) 0.1 %; Lymphocytes # (auto) 2.62 K/uL (1.2-3.4); Lymphocytes % (auto) 32.9 %; Mean Corpuscular Hgb Conc 32.7 g/dL (32.0-36.0); Mean Corpuscular Volume 85.8 fL (80.0-100.0); Mean Platelet Volume 9.6 fL (9.4-12.3); Monocytes # (auto) 0.72 K/uL (0.24-0.82); Neutrophils # (auto) 4.55 K/uL (1.4-6.5); Neutrophils % (auto) 57.1 %; Platelet Count 302 K/uL (130-400); RDW Coefficient of Variation 12.2 % (11.5-14.5); RDW Standard Deviation 38.4 fL (36.4-46.3); White Blood Count 7.97 K/ul (4.8-10.8)
[2022-01-02 06:51] LABS: BUN Creatinine Ratio 18.6 (10-20); Calcium 8.4 mg/dl (8.5-10.1); Creatinine Clr Calc Pharmacy 52.4 ml/min; Est GFR (African American) 76.7 ml/min; Est GFR (Non-African American) 66.2 ml/min; Potassium 3.5 mmol/L (3.5-5.1)
[2022-01-02] MEDS: TOPIRAMATE 50 MG TAB PO SCH (08:32)
[2022-01-02] MEDS: PANTOprazole 40 MG TAB PO SCH (08:32)
[2022-01-02] MEDS ORDERED: lisinopril 5 MG TAB PO SCH (09:00)
[2022-01-02] MEDS ORDERED: SPIRONOLACTONE 25 MG TAB PO SCH (09:00)
[2022-01-02] MEDS ORDERED: CHOLECALCIFEROL 1,000 UNITS 25 MCG TAB PO SCH (09:00)
[2022-01-02] MEDS ORDERED: PANTOprazole 40 MG TAB PO SCH (09:00)
[2022-01-02] MEDS ORDERED: HYDROXYCHLOROQUINE SULFATE 200 MG TAB PO SCH (09:00)
[2022-01-02] MEDS ORDERED: CHOLECALCIFEROL 5,000 UNITS 125 MCG TAB PO SCH (09:00)
[2022-01-02] MEDS ORDERED: FOLIC ACID 1 MG TAB PO SCH (09:00)
[2022-01-02] MEDS ORDERED: NON-FORMULARY MEDICATION (Potassium 99 mg Tablet) PO SCH (09:00)
[2022-01-03] MEDS ORDERED: SPIRONOLACTONE 25 MG TAB PO SCH (09:00)
[2022-01-03] MEDS ORDERED: lisinopril 5 MG TAB PO SCH (09:00)
--- NOTE | 2022-01-08 10:50 | Discharge Summary ---
Date of Service January 08, 2022 Admission HPI Per Admitting Provider This is a 56-year-old female who presents with worsening neck and arm symptoms after failed course of nonoperative care is here for surgical invention. Discharge Data Consultations 01/01/22 11:13 Consult Hospitalist Routine Procedures Performed Operation Date: 01/01/22 07:45 Actual Procedures p C4-C5 Anterior Cervical Discectomy Fusion, Spinal Cord Monitoring(Not Applicable) - Joel Davidson DO Hospital Course (1) Herniation of cervical intervertebral disc with radiculopathy: Patient is a 57-year-old female with history physical examination radiographic images consistent above-mentioned diagnosis. This reason she is brought to the operating room on 01/01/2022 and undergone an anterior cervical discectomy and fusion C4-5. She left the operating room with a NADIA drain in place and was transferred to PACU in stable condition. She was then transferred to the orthopedic floor. Throughout her hospital course her calves remained supple nontender abdomen remained soft nontender on postop day 1 she was deemed safe for home discharge. Her discharge instructions were change her dressing once daily till is dry once is dry she may begin showering. She was to wear a collar but may remove it for skin care and meals. She is to follow-up with our office approximately 2 weeks from her surgical date or sooner if she develops any increased pain, drainage from incision, or swelling.
== END 2022-01-02 10:37 | disposition home or self-care (01) | DRG 473 ==
LOC: ASU 06:01 → 3E 09:20

== ENCOUNTER 2023-07-25 06:05 | Inpatient (IN) ==
--- NOTE | 2023-06-28 14:01 | PAT Medication Instructions ---
Medication Instructions Date of Service June 28, 2023 Home Medications lisinopril 5 mg tablet 5 mg PO QAM levothyroxine 50 mcg tablet 50 mcg PO QAM pantoprazole 40 mg tablet,delayed release (Protonix) 40 mg PO QAM golimumab 100 mg/mL subcutaneous pen injector (Simponi) 100 mg subcut UD methocarbamol 500 mg tablet 500 mg PO BID PRN potassium 99 mg tablet 99 mg PO QAM pramipexole 1 mg tablet 1 - 3 mg PO HS cholecalciferol (vitamin D3) 50 mcg (2,000 unit) tablet (Vitamin D3) 200 mcg PO QAM folic acid 1 mg tablet 1 mg PO QAM hydroxychloroquine 200 mg tablet 200 mg PO QAM indomethacin 25 mg capsule 25 mg PO UD topiramate 50 mg tablet 50 - 100 mg PO BID diclofenac sodium 1 % topical gel (Voltaren Arthritis Pain) 2 g topical QID PRN duloxetine 60 mg capsule,delayed release 60 mg PO QAM fexofenadine 180 mg tablet 180 mg PO QAM hydrochlorothiazide 12.5 mg tablet 12.5 mg PO DAILY PRN prednisone 10 mg tablet 10 - 20 mg PO UD PRN azelastine 137 mcg (0.1 %) nasal spray aerosol 1 spray intranasal QAM estradiol 0.01% (0.1 mg/gram) vaginal cream 0.5 appful vaginal Q3D guaifenesin 1,200 mg tablet, extended release 12 hr 1,200 mg PO BID PRN sodium chloride 0.65 % nasal spray aerosol (Saline Nasal Mist) 1 spray intranasal QID PRN Congestion 06/28/23 [History Confirmed 06/28/23] Continue as directed prednisone 10 mg tablet 10 - 20 mg PO UD PRN(if needed) ASK your prescriber and surgeon golimumab 100 mg/mL subcutaneous pen injector (Simponi) 100 mg subcut UD hydroxychloroquine 200 mg tablet 200 mg PO QAM indomethacin 25 mg capsule 25 mg PO UD STOP taking 24 hours before surgery diclofenac sodium 1 % topical gel (Voltaren Arthritis Pain) 2 g topical QID PRN estradiol 0.01% (0.1 mg/gram) vaginal cream 0.5 appful vaginal Q3D DO NOT take the morning of surgery lisinopril 5 mg tablet 5 mg PO QAM potassium 99 mg tablet 99 mg PO QAM cholecalciferol (vitamin D3) 50 mcg (2,000 unit) tablet (Vitamin D3) 200 mcg PO QAM folic acid 1 mg tablet 1 mg PO QAM fexofenadine 180 mg tablet 180 mg PO QAM hydrochlorothiazide 12.5 mg tablet 12.5 mg PO DAILY PRN guaifenesin 1,200 mg tablet, extended release 12 hr 1,200 mg PO BID PRN Take morning of surgery With a small sip of water, OTHERWISE NOTHING TO EAT OR DRINK AFTER MIDNIGHT: levothyroxine 50 mcg tablet 50 mcg PO QAM pantoprazole 40 mg tablet,delayed release (Protonix) 40 mg PO QAM methocarbamol 500 mg tablet 500 mg PO BID PRN(if needed) topiramate 50 mg tablet 50 - 100 mg PO BID duloxetine 60 mg capsule,delayed release 60 mg PO QAM azelastine 137 mcg (0.1 %) nasal spray aerosol 1 spray intranasal QAM Take evening before surgery methocarbamol 500 mg tablet 500 mg PO BID PRN(if needed) pramipexole 1 mg tablet 1 - 3 mg PO HS topiramate 50 mg tablet 50 - 100 mg PO BID guaifenesin 1,200 mg tablet, extended release 12 hr 1,200 mg PO BID PRN(if needed) Other Notes If you have any questions please call us at [phone] or [phone] or [phone] or [phone]
--- NOTE | 2023-07-06 10:06 | Anesthesiology Consultation ---
Date of Service July 06, 2023 Assessment & Plan (1) Encounter for pre-operative examination: - Infectious disease screening: Per assessment on 07/06/23: No known infectious disease contacts or current infectious disease symptoms. - S/P C4-5 ACDF (01/01/22): Glidescope#3, ETT 7.5 at [facility] - Chronic constipation: Patient states long-term issues with chronic constipation. She would like chart flagged given her concern regarding potential post-op issues related to this history. She states she will relay concern to surgeon as well. - Chronic post-nasal drainage: Chronic, intermittent issue dating back to at least 2020 (multiple [facility] ENT evaluations r/t this). [place] possible allergy- related component. Previous allergy testing >10 years ago positive for trees. Underwent SCIT x1 year without improvement. Patient had adenoidectomy and ITR 02/2021. Culture grew out MRSA and prevotella- treated with bactrim. Patient reports overall stable since last ENT evaluation but does have intermittent episodes a few times a year. She states most recent flare 05/2023 which significantly improved when PCP started patient on Augmentin. After completion of antibiotics, patient had recurrence in symptoms and was sent for sinus x-ray (done 07/01/23, unremarkable) + throat culture (done 07/01/23, staph aureus). Patient was started on Bactrim (currently taking). Patient will have f/u with PCP for preop evaluation prior to surgery. - Patient acceptable risk for surgery pending surgeon-ordered PCP preop evaluation (Dr. Cesar Haq/Jennifer Seo [employer], appt 07/13). Chart Review Chart Review: Patient seen in Pre Admission Testing Teaching & Discussion Pre-Anesthesia Teaching/Discussion Notes: Instructed NPO after midnight before surgery,except medications with 15 cc of water. Medication instructions provided according to the PAT guidelines. History Surgery Operation Date: 07/25/23 10:05 Proposed Procedures p L3-L5 Decompression and Fusion with Spinal Cord Monitoring - Joel Davidson DO Height/Weight Height: 5 ft 3 in Weight: 63.4 kg Allergies Allergy/AdvReac Type Severity Reaction Status Date / Time leflunomide Allergy Intermediate Cervical Verified 07/04/23 10:56 dystonic episode tetanus toxoid, adsorbed Allergy Intermediate Fever, Verified 07/04/23 10:56 "streaking up the arm" Medications Home Medications Medication Instructions Recorded Confirmed Last Taken lisinopril 5 mg tablet 5 mg PO QAM 02/16/18 06/28/23 02/23/23 03:00 levothyroxine 50 mcg tablet 50 mcg PO QAM 01/20/19 06/28/23 02/23/23 03:00 pantoprazole 40 mg tablet,delayed 40 mg PO QAM 11/21/19 06/28/23 02/22/23 release (Protonix) golimumab 100 mg/mL subcutaneous 100 mg subcut UD 10/30/20 06/28/23 11/24/21 0 7:00 pen injector (Simponi) methocarbamol 500 mg tablet 500 mg PO BID PRN Muscle Pain 12/16/20 06/28/23 02/22/23 potassium 99 mg tablet 99 mg PO QAM 02/05/21 06/28/23 02/22/23 pramipexole 1 mg tablet 1 - 3 mg PO HS 02/05/21 06/28/23 02/22/23 cholecalciferol (vitamin D3) 50 200 mcg PO QAM 10/18/21 06/28/23 02/22/23 mcg (2,000 unit) tablet (Vitamin D3) folic acid 1 mg tablet 1 mg PO QAM 10/18/21 06/28/23 02/22/23 hydroxychloroquine 200 mg tablet 200 mg PO QAM 10/18/21 06/28/23 02/22/23 indomethacin 25 mg capsule 25 mg PO UD 10/18/21 06/28/23 02/22/23 topiramate 50 mg tablet 50 - 100 mg PO BID 10/18/21 06/28/23 02/22/23 diclofenac sodium 1 % topical gel 2 g topical QID PRN Pain 04/23/22 06/28/23 Unknown (Voltaren Arthritis Pain) duloxetine 60 mg capsule,delayed 60 mg PO QAM 02/10/23 06/28/23 02/22/23 release fexofenadine 180 mg tablet 180 mg PO QAM 02/10/23 06/28/23 02/22/23 hydrochlorothiazide 12.5 mg tablet 12.5 mg PO DAILY PRN swelling of 02/10/23 06/28/23 Unknown legs prednisone 10 mg tablet 10 - 20 mg PO UD PRN RA flares 02/10/23 06/28/23 Unknown azelastine 137 mcg (0.1 %) nasal 1 spray intranasal QAM 06/28/23 06/28/23 Unk nown spray aerosol estradiol 0.01% (0.1 mg/gram) 0.5 appful vaginal Q3D 06/28/23 06/28/23 Unknown vaginal cream guaifenesin 1,200 mg tablet, 1,200 mg PO BID PRN 06/28/23 06/28/23 Unknown extended release 12 hr congestion/allergy symptoms sodium chloride 0.65 % nasal spray 1 spray intranasal QID PRN 06/28/23 06/28/23 Unknown aerosol (Saline Nasal Mist) Congestion Past Medical History Medical History Benign microscopic hematuria Chronic Chronic constipation "Slow transit constipation" Finn-Danlos syndrome, type 3 Enchondroma of left femur s/p multiple surgeries Fibromyalgia Hemicrania continua History of COVID-2021: symptoms resolved 2022 (home test): mild symptoms, resolved 04/2023 (home test): mild symptoms, resolved History of MRSA infection Sinus culture (02/2021, [facility])- treated Hx of iron deficiency anemia 01/2023 iron infusions ([facility]) Hx of peptic ulcer Incidental finding on remote EGD (~2016) Hypertension Hypothyroidism Lumbar radiculopathy Migraine headache Neutropenia Chronic, intermittent finding Occipital neuralgia Had "failed" radiofrequency ablation for this Renal insufficiency PCP monitors Restless leg syndrome Rheumatoid arthritis Reason for PRN prednisone (no recent use) Sjogren's disease Small fiber neuropathy Spinal stenosis of lumbar region Exercise / Class Metabolic Activity II 4-5 Yardwork/Stairs/Walk up hill (one FS: No CP, no SOB) Past Family History Family History Mother Hypertension Grandfather (Paternal) Laryngeal cancer SMOKER Grandmother (Maternal) Heart disease Uncle Heart disease MATERNAL Other No family history of adverse response to anesthesia No family history of bleeding disorder Past Surgical History Surgical History H/O adenoidectomy + bilateral inferior turbinate reduction 02/23/21: Grade 1 view, MAC 3, ETT 7 H/O wisdom tooth extraction H/O: hysterectomy History of bladder repair surgery x2 History of breast biopsy Left side (benign) History of carpal tunnel release of both wrists History of colonoscopy History of dilation and curettage History of esophagogastroduodenoscopy (EGD) History of foot surgery Right big toe repair History of hip surgery Surgery for endocardroma left hip; subsequent surgery with bone graft History of left oophorectomy History of lumbar laminectomy L2-L3 laminectomy 10/19/21: Grade 1 view, MAC 3, ETT 7 History of surgery nerve block for trigeminal neuralgia Hx of arthroscopy of right knee Hx of fusion of cervical spine C4-5 ACDF (01/01/22): Glidescope#3, ETT 7.5 at [facility] Hx of LASIK Nausea and vomiting after administration of anesthetic agent Remote hx Past Anesthesia History No Hx of Anesthesia Complications and No Family Hx of Anesthesia Complications History of PONV History of PONV (Remote nausea (no issue with more recent issues/Zofran)) and Hx of Motion Sickness Social History Smoking Status: Never smoker Do You Dip or Chew Tobacco: No Hx Alcohol Use: No Hx Substance Use: No substance use type: does not use Review of Systems Patient denies chest pain, shortness of breath, dyspnea on exertion, fever, chills, cough, wheezing, palpitations. Physical Exam Physical Full cervical extension range of motion. Full TMJ range of motion. TMD > 3.5 finger breaths Mallampati Score 2 Lab Results Anesthesia Preop Results Results Anesthesia Widget: WBC 5.82 K/ul (4.8-10.8) 07/06/23 Hgb 13.5 g/dl (12.0-16.0) 07/06/23 Hct 41.3 % (37.0-47.0) 07/06/23 Plt 303 K/uL (130-400) 07/06/23 Na 136 mmol/L (136-145) 07/06/23 K 3.5 mmol/L (3.5-5.1) 07/06/23 Cl 103 mmol/L (98-107) 07/06/23 CO2 24 mmol/L (21-32) 07/06/23 BUN 21 mg/dl (6-23) 07/06/23 Creat 1.08 mg/dl (0.6-1.2) 07/06/23 Glucose Level 101 mg/dl (70-99(Fasting)) H 07/06/23 PT 11.5 Seconds (9.0-12.0) 07/06/23 PTT 27 Seconds (21-31) 07/06/23 INR 1.1 (0.9-1.1) 07/06/23 Urine Color Yellow 07/06/23 Urine Appearance Clear (Clear) 07/06/23 Urine pH 6.0 (4.5-7.5) 07/06/23 Urine Specific [place] 1.008 (1.000-1.030) 07/06/23 Urine Protein Negative (Negative) 07/06/23 Urine Glucose (UA) Negative (Negative) 07/06/23 Urine Ketones Negative (Negative) 07/06/23 Urine Blood Negative (Negative) 07/06/23 Urine Nitrite Negative (Negative) 07/06/23 Urine Bilirubin Negative (Negative) 07/06/23 Urine Urobilinogen Negative (Negative) 07/06/23 Urine Leukocyte Esterase Negative (Negative) 07/06/23 Blood Type AB Positive 07/06/23 Antibody Screen NEGATIVE 07/06/23 Testing Electrocardiogram Date: 07/06/23 NSR at 83bpm. Rightward axis. Chest X-Ray Date: 07/06/23 FINDINGS: Mild upper thoracic levoscoliosis redemonstrated. Cardiomediastinal and hilar silhouettes are within normal limits. No pneumothorax, pleural effusion, airspace consolidation or pulmonary edema. IMPRESSION: No acute process. Echocardiogram Date: 06/03/22 EF 55%. No obvious RWMA. No significant valvular disease. Other Testing C-spine xray Date: 01/01/22 FINDINGS: 2 spot fluoroscopic views of the cervical spine are presented. There has been discectomy at C4-C5 with anterior fusion at this level. The orthopedic hardware appears intact. An endotracheal tube is in place. IMPRESSION: Intraoperative images from cervical spinal fusion surgery as above. Sinus x-ray Date: 07/01/23 Unremarkable sinus series. There is normal pneumatization of the paranasal sinuses. The mastoid air cells are unremarkable.
--- OUTSIDE RECORDS SUMMARY | 2023-07-25 06:10 | External Medical Summary | Continuity of Care Document ---
Author Name Unknown Organization [place] [address] [address] Address [address] [facility] [facility] [address] [place] [id number] Care Team Providers Care Sand Slinger Operator Name Role Phone Cesar Haq Primary Care Physician [phone] Encounter [facility] [id number] Date(s): 07/08/23 - 07/08/23 [place] [address] [address] [facility] [place] [address] [facility], [address], Entrance [address] [place] [address] [phone] Encounter Diagnosis Small fiber polyneuropathy(Discharge Diagnosis) - 07/08/23 Painful paresthesia(Discharge Diagnosis) - 07/08/23 Discharge Disposition: Home or Self Care Attending Physician: MD Valerie, Xiaei Referring Physician: MD Haq Darren M Allergies, Adverse Reactions, Alerts Substance Criticality Severity Reaction Reaction Severity Status tetanus fever/red strea ks-tetanus booster Active Arava neck dystonic Active tree nuts 1 rash Active 1hazelnuts Medications [place] 24 Hour Allergy Start: 08/04/22 7:40:00 AM EDT, 180 mg =, PO, Daily Start Date: 08/04/22 Status: Ordered Alpha Lipoic Acid Start: 02/16/22 2:39:00 PM EST, 300 mg =, PO, 2 caps po lunchtime Start Date: 02/16/22 Status: Ordered Astepro Allergy Start: 07/08/23 9:06:00 AM EDT, intranasal, Daily Start Date: 07/08/23 Status: Ordered [place] Saline Nasal Mist Start: 07/08/23 9:07:00 AM EDT Start Date: 07/08/23 Status: Ordered Bactrim DS 800 mg-160 mg oral tablet Start: 07/08/23 9:08:00 AM EDT, 1 tab, PO, bid Start Date: 07/08/23 Stop Date: 07/15/23 Status: Ordered DULoxetine 60 mg oral delayed release capsule Start: 01/11/23 2:31:00 PM EST, 1 cap, PO, Daily, Disp# 30 cap, Refills: 5, Pharmacy: [id number] Start Date: 01/11/23 Stop Date: 07/10/23 Status: Ordered folic acid 1 mg oral tablet Start: 03/30/21 7:37:00 AM EST, 1 tab, PO, Daily Start Date: 03/30/21 Status: Ordered hydroCHLOROthiazide 12.5 mg oral tablet TAKE 1 TABLET BY MOUTH ONCE DAILY IN THE MORNING NEEDED Start Date: 05/27/23 Status: Ordered indomethacin 25 mg oral capsule Start: 08/04/22 8:36:00 AM EDT, See Instructions, Disp# 360 cap, Refills: 1, 2 caps PO in AM with food, 1 cap PO at lunch with food, 1 cap PO evening with food, Pharmacy: [id number] Start Date: 08/04/22 Status: Ordered levothyroxine 50 mcg (0.05 mg) oral tablet TAKE 1 TABLET BY MOUTH ONCE DAILY Start Date: 09/05/19 Status: Ordered lisinopril 5 mg oral tablet 1 tab, TAKE 1 TABLET BY MOUTH ONCE DAILY Start Date: 09/05/19 Status: Ordered methocarbamol Start: 06/30/21 9:10:00 AM EDT, 750 mg =, PO, Daily, PRN Start Date: 06/30/21 Status: Ordered Mucinex Start: 07/08/23 9:07:00 AM EDT, 1,200 mg =, PO, q12h Start Date: 07/08/23 Status: Ordered Plaquenil Sulfate 200 mg oral tablet Start: 03/30/21 7:37:00 AM EST, 1 tab, PO, Daily Start Date: 03/30/21 Status: Ordered potassium chloride 99 mg oral tablet Start: 11/25/20 2:17:00 PM EDT, 1 tab, PO, Daily Start Date: 11/25/20 Status: Ordered pramipexole Start: 11/25/20 2:16:00 PM EDT, See Instructions, 1 mg PO qhs or more depending on restless legs Start Date: 11/25/20 Status: Ordered predniSONE Start: 07/08/23 9:08:00 AM EDT, 10-20 mg PRN flare ups Start Date: 07/08/23 Status: Ordered Premarin Start: 07/08/23 9:05:00 AM EDT, 0.01%-5gm, vaginally 2x/week Start Date: 07/08/23 Status: Ordered Protonix Start: 06/30/21 9:09:00 AM EDT, 40 mg =, PO, Daily Start Date: 06/30/21 Status: Ordered Simponi Aria Vial 50 mg/4 mL IV solution Start: 07/08/23 9:03:00 AM EDT, IV, [id number] Start Date: 07/08/23 Status: Ordered Topamax 50 mg oral tablet Start: 08/04/22 8:38:00 AM EDT, 1 tab, PO, tid, Disp# 270 tab, Refills: 1, Note to Pharmacy: d/c anyother topamax such as 150 mg XR daily, Pharmacy: [id number] Start Date: 08/04/22 Status: Ordered Vitamin D3 Start: 07/08/23 9:02:00 AM EDT, 9,000 iu, PO, Daily Start Date: 07/08/23 Status: Ordered Voltaren 1% topical gel Start: 05/27/23 2:20:00 PM EDT, 1 appl, topical, qid, PRN: Pain Start Date: 05/27/23 Status: Ordered Mental Status 07/08/23 Barriers to Learning one year None evide nt Mandatory Health Literacy Documentation Yes Communication Barrier Present No Health Literacy Communication Barriers R brice Primary Language Prydeinig Problem List Condition Confirmation Course Effective Dates Status Health atus Informant Hemicrania continua Confirmed Active Small fiber neuropathy Confirmed Active Trigeminal neuralgia Confirmed Active Diagnosis Diagnosis Type Effective Dates Health Status Clinical Service Informant Small fiber polyneuropathy Discharge Diagnosis 07/08/23 Non-Specified Painful paresthesia Discharge Diagnosis 07/08/23 Non-Specified Procedures Procedure Date Related Diagnosis Body Site Status Scope/camera, device 1 06/2022 Co mpleted Surgery 2 04/2022 Completed Bunionectomy 3 Completed Carpal tunnel release 4 C ompleted D&C - Dilatation and curettage Completed LASIK 5 Completed Partial hysterectomy Comp leted Surgery 6 Completed Surgery 7 Completed Surgery 8 Completed Surgery 9 Completed Surgery 10 Completed Surgery 11 Completed Surgery 12 Completed Tubal ligation Completed 1right knee 2knee surgery 3right foot 4Bilateral 5bilateral 6disc 7bladder tac 8laproscopic 9cyst removed right breast 10hardware removed from left hip 11removal of encondroma left hip 12right ovary removed Vital Signs Most recent to oldest [Reference Range]: 1 Patient Weight 62.9 kg (07/08/23 9:09 AM) Heart Rate 89 bpm (07/08/23 9:09 AM) Blood Pressure 114/78mmHg (07/08/23 9:09 AM) Cuff Pulse Pressure 36 mmHg (07/08/23 9:09 AM) BP Location # 1 Right Arm (07/08/23 9:09 AM) Social History Social History Type Response Smoking Status Never smoked cigaret bi Sex Female Patient Care team information Care Team Personnel Name: MD Haq Darren M Position: Referring Member Role: Primary Care Provider Address: Address: [address] [place] [id number] Care Team Related Persons Name: DEN GUTIERREZ Address: home [address] [place] [address] [place] [phone]
[2023-07-25] MEDS: ACETAMINOPHEN 500 MG TAB PO SCH (06:37)
[2023-07-25] MEDS: LR 60ML/HR IV SCH (06:38)
[2023-07-25] MEDS: CeleBREX 200 MG CAP PO SCH (06:38)
[2023-07-25] MEDS: GABAPENTIN 600 MG DOSE PO SCH (06:38)
[2023-07-25] MEDS: LR 15ML/HR IV SCH (06:48)
[2023-07-25] MEDS ORDERED: HYDROmorphone INJ 1 MG/ML SYRINGE IV PRN ×2 (06:52→11:20)
[2023-07-25] MEDS ORDERED: ePHEDrine sulfate 50 MG/ML AMP IV PRN (06:52)
[2023-07-25] MEDS ORDERED: ATROPINE SULFATE 0.1 MG/ML 10ML SYR IV PRN (06:52)
[2023-07-25] MEDS ORDERED: DROPERIDOL 5 MG/2 ML VIAL IV PRN (06:52)
[2023-07-25] MEDS ORDERED: PROPOFOL IV EMULSION 10 MG/ML 20 ML VIAL IV ONE (07:04)
[2023-07-25] MEDS ORDERED: NEOSTIGMINE METHYLSULFATE 1 MG/ML 10ML VIAL ONE (07:04)
[2023-07-25] MEDS ORDERED: fentaNYL citrate PF 100 MCG/2 ML VIAL ONE ×2 (07:04)
[2023-07-25] MEDS ORDERED: MIDAZOLAM HCL 1 MG/ML 2ML VIAL ONE (07:04)
[2023-07-25] MEDS ORDERED: DEXAMETHASONE SOD INJ 4 MG/ML VIAL ONE (07:04)
[2023-07-25] MEDS ORDERED: ROCURONIUM BROMIDE 10 MG/ML 5 ML VIAL IV ONE ×2 (07:04→08:20)
[2023-07-25] MEDS ORDERED: LIDOCAINE 2% 2 ML VIAL/AMP(20MG/ML) INFIL ONE (07:04)
[2023-07-25] MEDS ORDERED: GLYCOPYRROLATE 0.2 MG/ML VIAL ONE (07:04)
[2023-07-25] MEDS ORDERED: ONDANSETRON INJ 2 MG/ML 2 ML VIAL ONE (07:04)
--- NOTE | 2023-07-25 07:40 | History & Physical Bridge Note ---
Date of Service July 25, 2023 History & Physical Bridge Note I have examined the patient, reviewed the History & Physical and in the interval since the performance of the History & Physical I have noted the following changes of clinical significance: no changes noted
--- NOTE | 2023-07-25 07:41 | History & Physical Report ---
Date of Service July 25, 2023 Assessment & Plan (1) Neurogenic claudication due to lumbar spinal stenosis: Plan: L3-L4 5 decompression and fusion History of Present Illness Chief Complaint: Back and leg pain Primary Care Provider: Cesar Haq MD This is a 58-year-old female well-known to the presents with chronic persistent back and leg pain after failing since course of nonoperative care is here for surgical invention. Allergies Allergy/AdvReac Type Severity Reaction Status Date / Time leflunomide Allergy Intermediate Cervical Verified 07/04/23 10:56 dystonic episode tetanus toxoid, adsorbed Allergy Intermediate Fever, Verified 07/04/23 10:56 "streaking up the arm" Home Medications Medication Instructions Recorded Confirmed Type lisinopril 5 mg tablet 5 mg PO QAM 02/16/18 07/25/23 History levothyroxine 50 mcg tablet 50 mcg PO QAM 01/20/19 07/25/23 History pantoprazole 40 mg tablet,delayed 40 mg PO QAM 11/21/19 07/25/23 History release (Protonix) golimumab 100 mg/mL subcutaneous 100 mg subcut UD 10/30/20 07/25/23 History pen injector (Simponi) methocarbamol 500 mg tablet 500 mg PO BID PRN Muscle Pain 12/16/20 07/25/23 History potassium 99 mg tablet 99 mg PO QAM 02/05/21 07/25/23 History pramipexole 1 mg tablet 1 - 3 mg PO HS 02/05/21 07/25/23 History cholecalciferol (vitamin D3) 50 200 mcg PO QAM 10/18/21 07/25/23 History mcg (2,000 unit) tablet (Vitamin D3) folic acid 1 mg tablet 1 mg PO QAM 10/18/21 07/25/23 History hydroxychloroquine 200 mg tablet 200 mg PO QAM 10/18/21 07/25/23 History indomethacin 25 mg capsule 25 mg PO UD 10/18/21 07/25/23 History topiramate 50 mg tablet 50 - 100 mg PO BID 10/18/21 07/25/23 History diclofenac sodium 1 % topical gel 2 g topical QID PRN Pain 04/23/22 07/25/23 History (Voltaren Arthritis Pain) duloxetine 60 mg capsule,delayed 60 mg PO QAM 02/10/23 07/25/23 History release fexofenadine 180 mg tablet 180 mg PO QAM 02/10/23 07/25/23 History hydrochlorothiazide 12.5 mg tablet 12.5 mg PO DAILY PRN swelling of 02/10/23 07/25/23 History legs prednisone 10 mg tablet 10 - 20 mg PO UD PRN RA flares 02/10/23 07/25/23 History azelastine 137 mcg (0.1 %) nasal 1 spray intranasal QAM 06/28/23 07/25/23 History spray aerosol estradiol 0.01% (0.1 mg/gram) 0.5 appful vaginal Q3D 06/28/23 07/25/23 History vaginal cream guaifenesin 1,200 mg tablet, 1,200 mg PO BID PRN 06/28/23 07/25/23 History extended release 12 hr congestion/allergy symptoms sodium chloride 0.65 % nasal spray 1 spray intranasal QID PRN 06/28/23 07/25/23 History aerosol (Saline Nasal Mist) Congestion escitalopram oxalate 10 mg tablet 10 mg PO DAILY 07/25/23 07/25/23 History (Lexapro) Past Med/Surg History Problem List (Updated 07/25/23 @ 07:41 by Joel Davidson, ) Neurogenic claudication due to lumbar spinal stenosis Hypertrophy of both inferior nasal turbinates Hypnic headache Vitamin D deficiency (Chronic) Restless leg syndrome (Chronic) Cervical facet syndrome (Chronic) Medical History Benign microscopic hematuria Chronic Chronic constipation "Slow transit constipation" Finn-Danlos syndrome, type 3 Enchondroma of left femur s/p multiple surgeries Fibromyalgia Hemicrania continua History of COVID-19 2021: symptoms resolved 2022 (home test): mild symptoms, resolved 04/2023 (home test): mild symptoms, resolved History of MRSA infection Sinus culture (02/2021, [facility])- treated Hx of iron deficiency anemia 01/2023 iron infusions ([facility]) Hx of peptic ulcer Incidental finding on remote EGD (~2016) Hypertension Hypothyroidism Lumbar radiculopathy Migraine headache Neutropenia Chronic, intermittent finding Occipital neuralgia Had "failed" radiofrequency ablation for this Renal insufficiency PCP monitors Restless leg syndrome Rheumatoid arthritis Reason for PRN prednisone (no recent use) Sjogren's disease Small fiber neuropathy Spinal stenosis of lumbar region Surgical History H/O adenoidectomy + bilateral inferior turbinate reduction 02/23/21: Grade 1 view, MAC 3, ETT 7 H/O wisdom tooth extraction H/O: hysterectomy History of bladder repair surgery x2 History of breast biopsy Left side (benign) History of carpal tunnel release of both wrists History of colonoscopy History of dilation and curettage History of esophagogastroduodenoscopy (EGD) History of foot surgery Right big toe repair History of hip surgery Surgery for endocardroma left hip; subsequent surgery with bone graft History of left oophorectomy History of lumbar laminectomy L2-L3 laminectomy 10/19/21: Grade 1 view, MAC 3, ETT 7 History of surgery nerve block for trigeminal neuralgia Hx of arthroscopy of right knee Hx of fusion of cervical spine C4-5 ACDF (01/01/22): Glidescope#3, ETT 7.5 at [facility] Hx of LASIK Nausea and vomiting after administration of anesthetic agent Remote hx Family History Mother Hypertension Grandfather (Paternal) Laryngeal cancer SMOKER Grandmother (Maternal) Heart disease Uncle Heart disease MATERNAL Other No family history of adverse response to anesthesia No family history of bleeding disorder Social History Smoking Status: Never smoker Second Hand Exposure: No; Do You Dip or Chew Tobacco: No; Tobacco Cessation Education Requested by Patient: No Hx Alcohol Use: No Hx Substance Use: No Preferred Language: Indonesian Communication Ability: Effective Visual Impairment: No Limitations Hearing Ability: Normal Tube Carrier Required: No Beliefs That Will Affect Care: None marital status: Current Living Situation: Spouse and Family Current Living Situation Comment: WITH AND SON current occupational status: retired and disabled Other Information That Helps Us Care for You: No Feels Safe at Home: Yes Safety Concerns: Feels Safe At This Time Assistive Devices: Contacts Assistive Devices Comment: 1 contact left eye Physical Exam Physical Exam: Patient is alert and oriented heart regular rhythm Lungs clear Results & Data Results & Data Vital Signs (Past 12 Hours) Vital Signs Temp Pulse Resp BP Pulse Ox O2 Del Method 07/25/23 06:27 36.6 C 76 16 126/81 99 Room Air
[2023-07-25] MEDS: ceFAZolin 2000MG 2,000 MG/15 ML SYR IV SCH (07:51)
[2023-07-25] MEDS ORDERED: KETAMINE HCL 10MG/ML SYR ONE (08:09)
[2023-07-25] MEDS ORDERED: HYDROmorphone INJ 2 MG/ML SYR/VIAL ONE (08:10)
[2023-07-25] MEDS ORDERED: SUGAMMADEX SODIUM 200 MG/2 ML VIAL IV ONE (08:20)
[2023-07-25] MEDS: ceFAZolin 330 MG/ML 1 GM VIAL ONE (08:57)
[2023-07-25] MEDS: BUPIVACAINE/EPINEPHRINE 0.25% 1:200,000 30 ML VIAL ONE (08:57)
[2023-07-25] MEDS: SURGICEL ABSORB HEMOSTAT 2IN X 14IN TOP ONE (09:42)
[2023-07-25] MEDS: FLOSEAL HEMOSTATIC MATRIX 10ML TOP ONE (10:06)
--- NOTE | 2023-07-25 10:14 | Operative Report ---
Post Operative Report Pre & Post Diagnosis Operation Date: 07/25/23 07:45 Pre-Op Diagnosis: Neurogenic claudication due to lumbar spinal stenosis Lumbar spondylolisthesis Degenerative scoliosis Post-Op Diagnosis: Same I identified the patient and participated in the time-out.: Yes Procedure Operation Date: 07/25/23 07:45 Actual Procedures #1 lumbar decompression bilateral medial facetectomies and foraminotomies L2-3, L3-L4 and L4-5. #2 posterior spinal fusion L3-L5. #3 placed posterior instrumentation L3-L5. #4 interbody fusion L3-L4 L4-5 and #5 placement spiral 9 x 26 mm at L3-L4 and 10 x 26 mm x 2 at L4-5. #6 placement locally harvested morselized autograft in the posterior gutters. #7 placement of infuse collagen sponge combined with Koros bone graft in the posterior lateral gutters and Morpheus bone graft interbody space. Surgeon Joel Davidson, DO Electrical [employer]ic Ceci Felix Estimated Blood Loss 650 Findings Consistent with Post-Op Diagnosis Specimens None Indications This is a 58-year-old female presents above-mentioned diagnosis after failing course of nonoperative care she is here for surgical invention. Description of Procedure Patient was met with identified informed consent obtained. Patient was then taken to the operative suite underwent patient placed in a prone position on the [place] table top Deandre frame. All bony promises well-padded eyes inspected to ensure no external precipice spine. This point lumbar spine was prepped and draped in normal sterile fashion. Sharp dissection with the assistance of Bovie cautery form down to and exposing the lamina transverse processes of L3 L4-5 bilaterally. From a caudal assessment fashion complete laminectomy of L4 was performed including bilateral medial facetectomies and foraminotomies followed by complete laminectomy of L3 with bilateral medial facetectomies and foraminotomies lastly a partial laminectomy of L2 was performed including bilateral medial facetectomies addressing severe lateral recess and foraminal stenosis at all levels. Pedicle screws were then placed at L3 L4-5 bilaterally with assistance of fluoroscopy in the process jennie contoured and placed. By way of transforaminal approach on the right and discectomy of L4-L5 was performed endplates guided to subcortical bleeding bone and a 10 x 26 mm spiral cage filled with Morpheus bone graft tapped in position. Then proceeded to the left transforaminal region at L4-5. Completed the discectomy endplates guided to subcortical bleeding bone and a second 10 x 26 mm spiral cage filled with Morpheus bone graft apposition. Lastly approached L3-L4 by way of transforaminal approach on the right a complete discectomy performed endplates guided to subcortical bleeding bone and 9 x 26 mm spiral cage filled with Morpheus bone graft tapped in position. The rods were then locked into final position bilaterally. The transverse processes of L3-L4-L5 burred to subcortical bleeding bone. Infuse collagen sponge Koros bone graft and locally harvested morselized autograft was placed in the posterior gutters. 15 round NADIA inserted. The incision was then closed with 1 Vicryl to fascia 2-0 Vicryl subcutaneously and 4 Monocryl for final skin closure. Steri-Strips sterile dressing placed. Patient awakened taken to PACU in stable condition. Please note spinal cord monitoring was utilized at the procedure no changes noted. Lastly Ceci Felix was present at the entire surgeon while the patient positioning complex portion of the surgery and final skin closure. I attest to the content of the Intraoperative Record and any orders documented therein. Any exceptions are noted below.
--- NOTE | 2023-07-25 10:25 | Fluoroscopy Report ---
FL lumbar spine 2-3V CLINICAL HISTORY: L3-L5 DECOMPRESSION AND FUSION COMPARISON STUDY: None. FLUOROSCOPY TIME: 35 seconds FLUOROSCOPY IMAGES: 2 Ka,r: 25.1 mGy FINDINGS: Posterior decompression fusion from L3 through L5 with pedicle screws and rods. Disc spacer s are placed. The hardware appears intact. IMPRESSION: Fluoroscopic assistance as above. ACT 112: Negative or not required by law. Electronically signed by: Elkin Veliz M.D. 07/25/2023 10:24 AM
[2023-07-25] MEDS ORDERED: DO NOT ADMINISTER PNEUMOCOCCAL VACCINE PRN (11:20)
[2023-07-25] MEDS ORDERED: MAGNESIUM HYDROXIDE SUSP 30 ML UDC PO PRN (11:20)
[2023-07-25] MEDS ORDERED: ONDANSETRON INJ 2 MG/ML 2 ML VIAL IV PRN (11:20)
[2023-07-25] MEDS ORDERED: SODIUM CHLORIDE 0.65% NA SOLN 45 ML (OCEAN) PRN (11:20)
[2023-07-25] MEDS ORDERED: hydrOXYzine HCl 25 MG TAB PO PRN (11:20)
[2023-07-25] MEDS ORDERED: diphenhydrAMINE Capsule 25 MG CAP PO PRN (11:20)
[2023-07-25] MEDS ORDERED: LORazepam 0.5 MG in SYRINGE 0.25 ML IV PRN (11:20)
[2023-07-25] MEDS ORDERED: bisacodyL 10 MG SUPP PR PRN (11:20)
[2023-07-25] MEDS ORDERED: DO NOT ADMINISTER FLU VACCINE PRN (11:20)
[2023-07-25] MEDS ORDERED: SOD PHOSPHATE/SOD BIPHOSPHATE ENEMA 132 ML BTL PR PRN (11:20)
[2023-07-25] MEDS ORDERED: PROMETHAZINE HCL 12.5 MG in SODIUM CHLORIDE 0.9% 50 ML IV PRN (11:20)
[2023-07-25] MEDS ORDERED: METOCLOPRAMIDE HCL INJ 5 MG/ML 2 ML VIAL IV PRN (11:20)
[2023-07-25] MEDS ORDERED: FAMOTIDINE 20 MG TAB PO PRN (11:20)
[2023-07-25] MEDS ORDERED: GOLIMUMAB SQ SCH (11:20)
[2023-07-25] MEDS ORDERED: ALUMINUM/MAGNESIUM SUSP 30 ML UDC PO PRN (11:20)
[2023-07-25] MEDS ORDERED: ONDANSETRON 4 MG OD TAB PO PRN (11:20)
[2023-07-25] MEDS ORDERED: LORazepam 0.5 MG TAB PO PRN (11:20)
[2023-07-25] MEDS ORDERED: HYDROmorphone INJ 0.5 MG/0.5 ML SYR IV PRN (11:20)
[2023-07-25] MEDS ORDERED: ACETAMINOPHEN 1,000 MG/100 ML VIAL IV PRN (11:20)
[2023-07-25] MEDS ORDERED: ACETAMINOPHEN 500 MG TAB PO PRN (11:20)
[2023-07-25] MEDS ORDERED: NALOXONE HCL 0.4 MG/1 ML VIAL/CARP IV PRN (11:20)
[2023-07-25] MEDS: LACTATED RINGER'S 1,000 ML IV SCH (11:51)
[2023-07-25] MEDS: traMADol HCL 50 MG TABLET PO PRN (11:54)
[2023-07-25] MEDS: NON-FORMULARY MEDICATION (Estradiol 0.01 % (0.1 mg/gram) cream) PV SCH (11:55)
--- NOTE | 2023-07-25 13:06 | Hospitalist Consultation ---
Date of Consultation July 25, 2023 Assessment & Plan (1) Neurogenic claudication due to lumbar spinal stenosis: POD#0 L3-4. L4-5 Decompression and fusion by Dr. Davidson Activity and wound care orders as per ortho Pain control with bowel regimen PT/OT Monitor H/H for acute blood loss anemia and transfuse blood products PRN EBL 650cc (2) Hypertension: BP borderline low, likely due to anesthesia, pain meds, possible blood loss Patient asymptomatic Continue IVF, if not improving, can check H/H Hold home lisinopril (3) Rheumatoid arthritis: Plaquenil has been on hold, patient has instructions to resume 1 week postop (4) Migraine headache: (5) Right trigeminal neuralgia: Chronic, stable Continue Topamax (6) Hypothyroidism: Chronic, stable Continue levothyroxine DVT PROPHYLAXIS TEDs/SCDs as per spine ortho Patient seen in collaboration with Dr. Sanders Thank you for this consultation. We will follow the patient with you during their hospital stay. You can reach a [facility] via the [facility] role in [employer]. Supervising Physician Co-Signing Physician Notes Attending Addendum: care coordinated with PABLO Chaudhari please refer to her notes for full details, I agree with her notes patient seen and examined, records reviewed by myself as well on exam, patient Seen resting in bed, sitting up, good spirits Feels fine overall Denies shortness of breath, chest pain, palpitations, nausea No other new symptoms no other symptoms VS noted and reviewed oriented x 3 , not in distress, speaks in sentences with no effort nor accessory muscle use normal rate, regular rhythm, no murmurs clear breath sounds bilaterally non distended, soft, nontender Back-dressing in place, no bleeding or discharge NADIA drain in place with serosanguineous output 75% no bipedal edema, erythema, warmth no neuro deficits all noted and reviewed including below ASSESSMENT AND PLAN Status post decompression and fusion surgery Acute blood loss anemia Baseline hemoglobin 13 Hemoglobin today 9.8 Repeat H&H this evening Transfuse for hemoglobin below 8 History of postoperative ileus Patient reports to have had ileus during previous surgeries Dulcolax plus MiraLAX daily ordered Monitor closely other diagnoses and plan of care as per PABLO Chaudhari's notes Jostin Sanders MD History of Present Illness Reason for Consultation: Postop medical management Requesting Physician: Dr. Davidson Attending Physician: Joel Davidson, DO History of Present Illness 58-year-old female with PMH HTN, hypothyroidism, GERD, rheumatoid arthritis on Plaquenil, trigeminal neuralgia, anxiety, depression, and other problems listed below who is s/p L3-L4, L4-L5 decompression and fusion by Dr. Davidson. Postop week, the patient is doing well. She reports her pain is well-controlled. She denies numbness, tingling, weakness to lower extremities. No chest pain or shortness of breath. Denies lightheadedness and dizziness. No abdominal pain or nausea. Potter catheter is in place draining clear yellow urine. Allergies Allergy/AdvReac Type Severity Reaction Status Date / Time leflunomide Allergy Intermediate Cervical Verified 07/04/23 10:56 dystonic episode tetanus toxoid, adsorbed Allergy Intermediate Fever, Verified 07/04/23 10:56 "streaking up the arm" Home Medications Medication Instructions Recorded Confirmed Type lisinopril 5 mg tablet 5 mg PO QAM 02/16/18 07/25/23 History levothyroxine 50 mcg tablet 50 mcg PO QAM 01/20/19 07/25/23 History pantoprazole 40 mg tablet,delayed 40 mg PO QAM 11/21/19 07/25/23 History release (Protonix) golimumab 100 mg/mL subcutaneous 100 mg subcut UD 10/30/20 07/25/23 History pen injector (Simponi) methocarbamol 500 mg tablet 500 mg PO BID PRN Muscle Pain 12/16/20 07/25/23 History potassium 99 mg tablet 99 mg PO QAM 02/05/21 07/25/23 History pramipexole 1 mg tablet 1 - 3 mg PO HS 02/05/21 07/25/23 History cholecalciferol (vitamin D3) 50 200 mcg PO QAM 10/18/21 07/25/23 History mcg (2,000 unit) tablet (Vitamin D3) folic acid 1 mg tablet 1 mg PO QAM 10/18/21 07/25/23 History hydroxychloroquine 200 mg tablet 200 mg PO QAM 10/18/21 07/25/23 History indomethacin 25 mg capsule 25 mg PO UD 10/18/21 07/25/23 History topiramate 50 mg tablet 50 - 100 mg PO BID 10/18/21 07/25/23 History diclofenac sodium 1 % topical gel 2 g topical QID PRN Pain 04/23/22 07/25/23 History (Voltaren Arthritis Pain) duloxetine 60 mg capsule,delayed 60 mg PO QAM 02/10/23 07/25/23 History release fexofenadine 180 mg tablet 180 mg PO QAM 02/10/23 07/25/23 History hydrochlorothiazide 12.5 mg tablet 12.5 mg PO DAILY PRN swelling of 02/10/23 07/25/23 History legs prednisone 10 mg tablet 10 - 20 mg PO UD PRN RA flares 02/10/23 07/25/23 History azelastine 137 mcg (0.1 %) nasal 1 spray intranasal QAM 06/28/23 07/25/23 History spray aerosol estradiol 0.01% (0.1 mg/gram) 0.5 appful vaginal Q3D 06/28/23 07/25/23 History vaginal cream guaifenesin 1,200 mg tablet, 1,200 mg PO BID PRN 06/28/23 07/25/23 History extended release 12 hr congestion/allergy symptoms sodium chloride 0.65 % nasal spray 1 spray intranasal QID PRN 06/28/23 07/25/23 History aerosol (Saline Nasal Mist) Congestion escitalopram oxalate 10 mg tablet 10 mg PO DAILY 07/25/23 07/25/23 History (Lexapro) oxycodone 5 mg tablet 5 mg PO Q6H PRN pain #30 tabs 07/25/23 Rx tramadol 50 mg tablet 50 mg PO Q6H PRN pain, moderate 07/25/23 Rx #30 tabs Patient History Medical History History of MRSA infection Sinus culture (02/2021, [facility])- treated Enchondroma of left femur s/p multiple surgeries Lumbar radiculopathy Spinal stenosis of lumbar region Finn-Danlos syndrome, type 3 History of COVID-19 2021: symptoms resolved 2022 (home test): mild symptoms, resolved 04/2023 (home test): mild symptoms, resolved Benign microscopic hematuria Chronic Hx of peptic ulcer Incidental finding on remote EGD (~2016) Hx of iron deficiency anemia 01/2023 iron infusions ([facility]) Restless leg syndrome Hypertension Hemicrania continua Small fiber neuropathy Fibromyalgia Renal insufficiency PCP monitors Occipital neuralgia Had "failed" radiofrequency ablation for this Migraine headache Chronic constipation "Slow transit constipation" Neutropenia Chronic, intermittent finding Hypothyroidism Rheumatoid arthritis Reason for PRN prednisone (no recent use) Sjogren's disease Surgical History Nausea and vomiting after administration of anesthetic agent Remote hx Hx of fusion of cervical spine C4-5 ACDF (01/01/22): Glidescope#3, ETT 7.5 at [facility] Hx of arthroscopy of right knee History of lumbar laminectomy L2-L3 laminectomy 10/19/21: Grade 1 view, MAC 3, ETT 7 H/O adenoidectomy + bilateral inferior turbinate reduction 02/23/21: Grade 1 view, MAC 3, ETT 7 History of hip surgery Surgery for endocardroma left hip; subsequent surgery with bone graft History of esophagogastroduodenoscopy (EGD) History of colonoscopy H/O wisdom tooth extraction History of surgery nerve block for trigeminal neuralgia History of dilation and curettage History of foot surgery Right big toe repair History of breast biopsy Left side (benign) History of bladder repair surgery x2 History of left oophorectomy Hx of LASIK History of carpal tunnel release of both wrists H/O: hysterectomy Family History Mother Hypertension Grandfather (Paternal) Laryngeal cancer SMOKER Grandmother (Maternal) Heart disease Uncle Heart disease MATERNAL Other No family history of adverse response to anesthesia No family history of bleeding disorder Social History Smoking Status: Never smoker Second Hand Exposure: No; Do You Dip or Chew Tobacco: No; Tobacco Cessation Education Requested by Patient: No Hx Alcohol Use: No Hx Substance Use: No Preferred Language: Ecuadorean Communication Ability: Effective Visual Impairment: No Limitations Hearing Ability: Normal Record Center Coordinator Required: No Beliefs That Will Affect Care: None marital status: Current Living Situation: Spouse and Family Current Living Situation Comment: WITH AND SON current occupational status: retired and disabled Other Information That Helps Us Care for You: No Feels Safe at Home: Yes Safety Concerns: Feels Safe At This Time Assistive Devices: Contacts Assistive Devices Comment: 1 contact left eye Physical Exam Constitutional: WD/WN, vitals as above no acute distress Eyes: PERRL, conjunctivae normal, anicteric sclerae ENMT: external ear and nose normal, oropharynx normal Respiratory: normal respiratory effort, lungs clear to auscultation Cardiovascular: Rate/Rhythm: regular rate and regular rhythm Vessels: normal peripheral pulses Extremities: no edema Gastrointestinal (Abdomen): normal bowel sounds, soft, nontender, no hepatosplenomegaly Musculoskeletal: s/p back surgery, pedal pushes and pulls strong BL, drain in place draining bloody drainage Skin: no rashes, warm and dry Neurologic: PERRL, EOMI, accommodation nl, no face palsy, no dysarthria Psychiatric: A+Ox3, euthymic affect Results & Data Results & Data Vital Signs (Past 12 Hours) Vital Signs Temp Pulse Pulse Resp BP BP Pulse Ox 07/25/23 12:20 79 18 95/61 L 94 07/25/23 11:50 77 18 97/61 L 94 07/25/23 11:20 36.6 C 85 18 110/68 93 07/25/23 11:00 36.5 C 85 12 113/75 94 07/25/23 10:50 80 14 119/75 99 07/25/23 10:40 97 H 13 133/77 99 07/25/23 10:31 36.5 C 90 16 127/82 94 07/25/23 06:27 36.6 C 76 16 126/81 99 O2 Del Method O2 Flow Rate 07/25/23 12:20 Room Air 07/25/23 11:50 Room Air 07/25/23 11:20 Room Air 07/25/23 11:00 Room Air 07/25/23 10:50 Oxymask 5 07/25/23 10:40 Oxymask 5 07/25/23 10:31 Oxymask 5 07/25/23 06:27 Room Air
[2023-07-25 15:43] LABS: Basophils # (auto) 0.02 K/uL (0.00-0.20); Basophils % (auto) 0.2 %; Hemoglobin 9.8 g/dl (12.0-16.0); Immature Granulocytes # (auto) 0.05 K/uL (0.01-0.20); Immature Granulocytes % (auto) 0.6 %; Lymphocytes % (auto) 7.9 %; Mean Corpuscular Hemoglobin 30.3 pg (25.0-34.0); Mean Corpuscular Hgb Conc 32.7 g/dL (32.0-36.0); Mean Corpuscular Volume 92.9 fL (80.0-100.0); Mean Platelet Volume 9.5 fL (9.4-12.4); Monocytes # (auto) 0.13 K/uL (0.11-0.59); Monocytes % (auto) 1.5 %; Neutrophils % (auto) 89.8 %; Platelet Count 214 K/uL (130-400); RDW Coefficient of Variation 12.6 % (11.5-14.5); RDW Standard Deviation 42.9 fL (36.4-46.3); Red Blood Count 3.23 M/uL (4.20-5.40)
[2023-07-25 15:58] LABS: Albumin Globulin Ratio 1.3 (0.9-2); Albumin Level 3.2 gm/dl (3.4-5.0); Bilirubin,Total 0.3 mg/dl (0.2-1.0); Calcium 8.1 mg/dl (8.6-10.3); Est GFR (Non-African American) 77.7 ml/min; Globulin 2.4 gm/dl (2.5-4.0); Total Protein 5.6 gm/dl (6.0-8.3)
[2023-07-25] MEDS: ceFAZolin 1000MG 1,000 MG/7.5 ML SYR IV SCH (16:02)
[2023-07-25] MEDS ORDERED: bisacodyL 5 MG TABEC PO PRN (16:23)
[2023-07-25] MEDS: KETOROLAC 30 MG/ML VIAL IV PRN (16:26)
[2023-07-25] MEDS: bisacodyL 5 MG TABEC PO ONE (16:26)
[2023-07-25] MEDS ORDERED: Nursing to Pharmacy Communication SCH (16:30)
[2023-07-25] MEDS: TOPIRAMATE 50 MG TAB PO SCH (20:10)
[2023-07-25] MEDS: PRAMIPEXOLE DIHYDROCHLO 0.5 MG TAB PO SCH (20:10)
[2023-07-25 20:55] LABS: Hematocrit (blood only) 28.9 % (37.0-47.0); Hemoglobin 9.5 g/dl (12.0-16.0)
[2023-07-25] MEDS ORDERED: DOCUSATE SODIUM/SENNA 50/8.6MG TAB PO SCH (21:00)
[2023-07-26] MEDS: POLYETHYLENE (MIRALAX) 17 GM PACK PO SCH ×2 (05:44→09:12)
[2023-07-26] MEDS: LEVOTHYROXINE SODIUM 50 MCG TABLET PO SCH (05:45)
[2023-07-26 06:32] LABS: Basophils # (auto) 0.01 K/uL (0.00-0.20); Basophils % (auto) 0.1 %; Eosinophils # (auto) 0.04 K/uL (0.00-0.50); Eosinophils % (auto) 0.5 %; Hematocrit (blood only) 29.8 % (37.0-47.0); Hemoglobin 9.6 g/dl (12.0-16.0); Immature Granulocytes # (auto) 0.03 K/uL (0.01-0.20); Immature Granulocytes % (auto) 0.3 %; Lymphocytes # (auto) 2.39 K/uL (1.20-3.40); Lymphocytes % (auto) 27.5 %; Mean Corpuscular Hemoglobin 30.4 pg (25.0-34.0); Mean Corpuscular Hgb Conc 32.2 g/dL (32.0-36.0); Mean Corpuscular Volume 94.3 fL (80.0-100.0); Mean Platelet Volume 9.9 fL (9.4-12.4); Monocytes # (auto) 0.74 K/uL (0.11-0.59); Monocytes % (auto) 8.5 %; Neutrophils # (auto) 5.49 K/uL (1.40-6.50); Neutrophils % (auto) 63.1 %; Platelet Count 210 K/uL (130-400); RDW Coefficient of Variation 12.6 % (11.5-14.5); RDW Standard Deviation 43.6 fL (36.4-46.3); Red Blood Count 3.16 M/uL (4.20-5.40)
[2023-07-26 06:49] LABS: Albumin Globulin Ratio 1.3 (0.9-2); BUN Creatinine Ratio 18.5 (10-20); Bilirubin,Total 0.3 mg/dl (0.2-1.0); Calcium 7.6 mg/dl (8.6-10.3); Creatinine Clr Calc Pharmacy 69.5 ml/min; Est GFR (African American) 94.1 ml/min; Est GFR (Non-African American) 81.2 ml/min; Globulin 2.4 gm/dl (2.5-4.0); Potassium 3.5 mmol/L (3.5-5.1); Total Protein 5.4 gm/dl (6.0-8.3)
[2023-07-26] MEDS ORDERED: HYDROXYCHLOROQUINE SULFATE 200 MG TAB PO SCH (09:00)
[2023-07-26] MEDS ORDERED: lisinopril 5 MG TAB PO SCH (09:00)
[2023-07-26] MEDS ORDERED: NON-FORMULARY MEDICATION (Potassium 99 mg Tablet) PO SCH (09:00)
[2023-07-26] MEDS: FEXOFENADINE HCL 180 MG TAB PO SCH (09:12)
[2023-07-26] MEDS: DULoxetine HCL 60 MG CAP PO SCH (09:13)
[2023-07-26] MEDS: FOLIC ACID 1 MG TAB PO SCH (09:13)
[2023-07-26] MEDS: TOPIRAMATE 50 MG TAB PO SCH (09:13)
[2023-07-26] MEDS: PANTOprazole 40 MG TAB PO SCH (09:13)
[2023-07-26] MEDS: ESCITALOPRAM OXALATE 10 MG TAB PO SCH (09:13)
[2023-07-26] MEDS: CHOLECALCIFEROL 125 MCG (5,000 UNITS) TAB PO SCH (09:13)
[2023-07-26] MEDS: AZELASTINE HCL 0.1% NASAL 200 SPRAYS/27,400 MCG BTL SCH (09:14)
--- NOTE | 2023-07-26 09:44 | Orthopedic Progress Note ---
Date of Service July 26, 2023 Assessment & Plan (1) Neurogenic claudication due to lumbar spinal stenosis: Plan: At this time we will continue physical therapy monitor NADIA output anticipate discharge home in the next few days. Admission and Anticipated Discharge Date Admission Date: July 25, 2023 Subjective Back pain controlled leg pain improved Physical Exam Physical Exam: Patient is up and ambulating. She is comfortable. Distracted testing. Results & Data Vital Signs (Past 12 Hours) Vital Signs Temp Pulse Resp BP Pulse Ox O2 Del Method 07/26/23 05:43 107/69 07/26/23 04:10 36.7 C 87 17 102/66 98 Room Air 07/25/23 23:00 36.5 C 78 17 96/56 L 97 Room Air
[2023-07-26] MEDS: dexAMETHasone 6 MG in SYRINGE 0 ML IV SCH (10:29)
--- NOTE | 2023-07-26 12:17 | Hospitalist Progress Note ---
Date of Service July 26, 2023 Assessment & Plan (1) Neurogenic claudication due to lumbar spinal stenosis: Plan: POD#1 L3-4. L4-5 Decompression and fusion by Dr. Davidson Activity and wound care orders as per ortho Pain control with bowel regimen PT/OT Monitor H/H for acute blood loss anemia and transfuse blood products PRN EBL 650cc (2) Acute blood loss anemia: Plan: pre op hgb 13.5, post op day # 1 9.6 acute blood loss anemia in setting of expected surgical blood loss (3) Hypertension: Plan: bp remains on lower side, likely due to blood loss continue to hold home lisinopril (4) Right trigeminal neuralgia: Plan: Chronic, stable Continue Topamax Admission and Anticipated Discharge Date Admission Date: July 25, 2023 Supervising Physician Co-Signing Physician Notes Patient was seen and examined at bedside as a follow-up of status post lumbar surgery. Patient reports feeling better, reports improvement in her RLE radicular symptoms. Patient denies any headache/dizziness/chest pain. Patient reports eating okay and moving gas okay, has normal bowel. On exam, lower back with clean dressing without soakage, DEDRICK drain with moderate serosanguineous collection noted. Rest of the examination as above. I have seen and examined the patient and have discussed the case with the provider above. I agree with the assessment and plan as stated. Subjective Pt was seen and examined in room 306. F/U Low back surgery. She has some incisional pain, but offers no complaints. She has already been into the bathroom this morning. She denies f/c/s, chest pain, sob, n/v/d, abd pain. Hx of post op ileus. She is aware to push stool softeners. Review of Systems Review of Systems: All systems reviewed & are unremarkable except as noted in HPI & below Physical Exam Physical Exam: Gen: WD/WN, NAD, A&O x3 HEENT: Normocephalic, atraumatic, conjunctivae moist, sclerae anicteric, mucous membranes moist. Lung: Clear to Auscultation bilaterally, no wheezes/rales/rhonchi Heart: Regular rate, regular rhythm, no murmurs, rubs, or gallops Abdomen: Soft, NT, ND +BS x 4 Extremities: No edema, lumbar dressing CDI, dedrick drain with sersosang drainage Skin: Warm, no rash, negative turgor. Results & Data Results & Data Vital Signs (Past 12 Hours) Vital Signs Temp Pulse Resp BP Pulse Ox O2 Del Method 07/26/23 05:43 107/69 07/26/23 04:10 36.7 C 87 17 102/66 98 Room Air Laboratory Results Short CBC 07/25/23 07/25/23 07/26/23 Range/Units 15:26 20:21 05:58 WBC 8.90 8.70 (4.8-10.8) K/ul Hgb 9.8 L 9.5 L 9.6 L (12.0-16.0) g/dl Hct 30.0 L 28.9 L 29.8 L (37.0-47.0) % Plt Count 214 210 (130-400) K/uL BMP 07/25/23 07/26/23 15:26 05:58 Sodium 139 138 Potassium 4.0 3.5 Chloride 109 H 107 Carbon Dioxide 26 30 BUN 16 15 Creatinine 0.84 0.81 Glucose 143 H 100 H Calcium 8.1 L 7.6 L Liver Function 07/25/23 07/26/23 Range/Units 15:26 05:58 Total Bilirubin 0.3 0.3 (0.2-1.0) mg/dl AST 21 19 (13-39) U/L ALT 16 11 (7-52) U/L Alkaline Phosphatase 46 45 (34-104) U/L Albumin 3.2 L 3.0 L (3.4-5.0) gm/dl Medications Administered Current Inpatient Medications Acetaminophen (Acetaminophen 500 Mg Tab) 1,000 mg PO Q8H PRN PRN Reason: MILD Pain Scale 1,2,3 & Pre PT Stop: 08/24/23 11:19 Al Hydrox/Mg Hydrox/Simethicone (Aluminum/Magnesium Susp 30 Ml Udc) 30 ml PO Q6H PRN PRN Reason: Dyspepsia Stop: 08/24/23 11:19 Azelastine HCl (Azelastine Hcl 0.1% Nasal 200 Sprays/27,400 Mcg Btl) 1 sprays NA QAM ROSALIA Stop: 08/25/23 08:59 Last Admin: 07/26/23 09:14 Dose: 1 sprays Bisacodyl (Bisacodyl 5 Mg Tabec) 10 mg PO DAILY PRN PRN Reason: Constipation Stop: 08/24/23 16:21 Diphenhydramine HCl (Diphenhydramine Capsule 25 Mg Cap) 25 mg PO Q6H PRN PRN Reason: Allergic Rhinitis/Insomnia Stop: 08/24/23 11:19 Duloxetine HCl (Duloxetine Hcl 60 Mg Cap) [facility] [place] Stop: 08/25/23 08:59 Last Admin: 07/26/23 09:13 Dose: 60 mg Escitalopram Oxalate (Escitalopram Oxalate 10 Mg Tab) 10 mg PO DAILY [facility] Stop: 08/25/23 08:59 Last Admin: 07/26/23 09:13 Dose: 10 mg Famotidine (Famotidine 20 Mg Tab) 20 mg PO Q12H PRN PRN Reason: Dyspepsia Stop: 08/24/23 11:19 Fexofenadine HCl (Fexofenadine Hcl 180 Mg Tab) [facility] [place] Stop: 08/25/23 08:59 Last Admin: 07/26/23 09:12 Dose: 180 mg Folic Acid (Folic Acid 1 Mg Tab) 1 mg PO [facility] Stop: 08/25/23 08:59 Last Admin: 07/26/23 09:13 Dose: 1 mg Hydromorphone HCl (Hydromorphone Inj 0.5 Mg/0.5 Ml Syr) 0.5 mg IV Q3H PRN PRN Reason: MODERATE Pain (Scale 4,5,6) & Pre PT Stop: 08/08/23 11:19 Hydromorphone HCl (Hydromorphone Inj 1 Mg/Ml Syringe) 1 mg IV Q3H PRN PRN Reason: SEVERE Pain (Scale 7,8,9,10) Stop: 08/08/23 11:19 Hydroxyzine HCl (Hydroxyzine Hcl 25 Mg Tab) 25 mg PO Q8H PRN PRN Reason: Anxiety Stop: 08/24/23 11:19 Promethazine HCl 12.5 mg/ (Sodium Chloride) 50.5 mls @ 202 mls/hr IV Q6H PRN PRN Reason: Nausea &/or Vomiting Stop: 08/24/23 11:19 Lorazepam 0.5 mg/ Syringe 0.5 mls @ 2 mls/min IV Q8H PRN; Protocol PRN Reason: Sedation/Anxiety Stop: 08/24/23 11:19 Dexamethasone 6 mg/ Syringe 1.5 mls @ 1 mls/min IV DAILY [facility] Stop: 07/28/23 09:02 Last Admin: 07/26/23 10:29 Dose: 1 mls/min Influenza Virus Vaccine Quadrival (Do Not Administer Flu Vaccine) 1 each N/A PRN PRN PRN Reason: Notification Stop: 08/24/23 11:19 Ketorolac Tromethamine (Ketorolac 30 Mg/Ml Vial) 30 mg IV Q6H PRN PRN Reason: Moderate Pain (Scale 4, 5, 6) Stop: 07/30/23 16:04 Last Admin: 07/26/23 12:24 Dose: 30 mg Levothyroxine Sodium (Levothyroxine Sodium 50 Mcg Tablet) 50 mcg PO DAILYBB [facility] Stop: 08/25/23 06:29 Last Admin: 07/26/23 05:45 Dose: 50 mcg Lorazepam (Lorazepam 0.5 Mg Tab) 0.5 mg PO Q8H PRN PRN Reason: Sedation/Anxiety Stop: 08/24/23 11:19 Magnesium Hydroxide (Magnesium Hydroxide Susp 30 Ml Udc) 30 ml PO Q24H PRN PRN Reason: Constipation Stop: 08/24/23 11:19 Metoclopramide HCl (Metoclopramide Hcl Inj 5 Mg/Ml 2 Ml Vial) 10 mg IV Q6H PRN PRN Reason: Nausea &/or Vomiting Stop: 08/24/23 11:19 Miscellaneous (Estradiol ~ Order Awaiting Action) 1 each N/A QS [facility] Stop: 08/24/23 15:59 Last Admin: 07/26/23 09:14 Dose: Not Given Naloxone HCl (Naloxone Hcl 0.4 Mg/1 Ml Vial/Carp) 0.1 mg IV Q5M PRN PRN Reason: Oversedation/Resp depression Stop: 08/24/23 11:19 Ondansetron HCl (Ondansetron Inj 2 Mg/Ml 2 Ml Vial) 4 mg IV Q6H PRN PRN Reason: Nausea &/or Vomiting Stop: 08/24/23 11:19 Ondansetron HCl (Ondansetron 4 Mg Od Tab) 4 mg PO Q6H PRN PRN Reason: Nausea Stop: 08/24/23 11:19 Oxycodone HCl (Oxycodone Hcl Ir 5 Mg Tab (Immediate Release)) 5 - 10 mg PO Q4H PRN PRN Reason: Pain & Pre PT Stop: 08/08/23 11:19 Pantoprazole Sodium (Pantoprazole 40 Mg Tab) 40 mg PO QAM [facility] Stop: 08/25/23 08:59 Last Admin: 07/26/23 09:13 Dose: 40 mg Pneumococcal Polyvalent Vaccine (Do Not Administer Pneumococcal Vaccine) 1 each N/A PRN PRN PRN Reason: Notification Stop: 08/24/23 11:19 Polyethylene Glycol (Polyethylene (Miralax) 17 Gm Pack) 17 gm PO Q6 ROSALIA Stop: 08/25/23 05:59 Last Admin: 07/26/23 12:24 Dose: 17 gm Polyethylene Glycol (Polyethylene (Miralax) 17 Gm Pack) 17 gm PO DAILY ROSALIA Stop: 08/25/23 08:59 Last Admin: 07/26/23 09:12 Dose: 17 gm Pramipexole Dihydrochloride (Pramipexole Dihydrochlo 0.5 Mg Tab) 2 mg PO HS [facility] Stop: 08/24/23 20:59 Last Admin: 07/25/23 20:10 Dose: 2 mg Sodium Biphosphate/Sodium Phosphate (Sod Phosphate/Sod Biphosphate Enema 132 Ml Btl) 132 ml GA ONE PRN PRN Reason: Constipation Stop: 08/24/23 11:19 Sodium Chloride (Sodium Chloride 0.65% Na Soln 45 Ml ([place])) 1 sprays NA QID PRN PRN Reason: Congestion Stop: 08/24/23 11:19 Topiramate (Topiramate 50 Mg Tab) 100 mg PO QAM [facility] Stop: 08/25/23 08:59 Last Admin: 07/26/23 09:13 Dose: 100 mg Topiramate (Topiramate 50 Mg Tab) 50 mg PO HS [facility] Stop: 08/24/23 20:59 Last Admin: 07/25/23 20:10 Dose: 50 mg Tramadol HCl (Tramadol Hcl 50 Mg Tablet) 50 - 100 mg PO Q4H PRN PRN Reason: Moderate-Severe pain & Pre PT Stop: 08/24/23 11:19 Last Admin: 07/25/23 11:54 Dose: 100 mg Vitamin D (Cholecalciferol 125 Mcg (5,000 Units) Tab) 125 mcg PO QAM ROSALIA Stop: 08/25/23 08:59 Last Admin: 07/26/23 09:13 Dose: 125 mcg
[2023-07-27] MEDS: oxyCODONE HCL IR 5 MG TAB (IMMEDIATE RELEASE) PO PRN (01:56)
[2023-07-27] MEDS: POLYETHYLENE (MIRALAX) 17 GM PACK PO SCH (08:02)
--- NOTE | 2023-07-27 09:23 | Discharge Summary ---
Date of Service July 27, 2023 Admission HPI Per Admitting Provider This is a 58-year-old female well-known to the presents with chronic persistent back and leg pain after failing since course of nonoperative care is here for surgical invention. Principal Diagnosis Lumbar spinal stenosis with neurogenic claudication Discharge Data Allergies Allergy/AdvReac Type Severity Reaction Status Date / Time leflunomide Allergy Intermediate Cervical Verified 07/04/23 10:56 dystonic episode tetanus toxoid, adsorbed Allergy Intermediate Fever, Verified 07/04/23 10:56 "streaking up the arm" Consultations 07/25/23 11:20 Consult Hospitalist Routine Procedures Performed Operation Date: 07/25/23 07:45 Actual Procedures p L3-L5 Decompression and Fusion, Spinal Cord Monitoring(Not Applicable) - Joel Davidson DO Ordered Studies 07/25/23 07:45 [place] lumbar spine 2-3V Routine Hospital Course (1) Neurogenic claudication due to lumbar spinal stenosis: Patient underwent multilevel lumbar decompression fusion tolerated well was taken to orthopedic for postoperative. Postop patient progressed appropriately. Ambulating well. Strength testing. ANDIA drain decreasing. Pain well- controlled. Simply discharged home. Discharge orders instructions from the chart for further review. Total Time Total Time Spent Total Time Spent (In Minutes): 20 minutes Discharge Plan Discharge Items Patient Disposition: Home - Self-Care Reason For Visit: Lumbar Disc Disease with Radiculopathy, Spondyloli Discharge Diagnosis: Lumbar spinal stenosis with spondylolisthesis and neurogenic claudication Activity: As commented below Non-emergency contact: Primary Care Provider Call non-emergency contact if: you have any medication questions Follow-up/Referrals: Cesar Haq MD [Primary Care Provider] - Diet: Regular Addtl Attending Provider Instructions: ACTIVITY RECOMMENDATIONS: SELF CARE INSTRUCTIONS AFTER THORACIC/LUMBAR FUSIONS 1. You may walk to your tolerance. It is good exercise for your legs and back. Expect some back and intermittent leg aches and pains. 2. You may perform "counter-top" level activities (make a sandwich, aleksandar with a project, etc.). 3. No bending or lifting of more than 10 pounds or back twisting of any nature (roll like a log when turning in bed). 4. You may ride in a car for 20-30 minutes at a time. No driving until after your first visit with your doctor. 5. Frequent changes of position and restricting sitting to 30 minutes at a time will help limit the amount of back spasms and stiffness you may experience. 6. You may discontinue the use of ambulatory aids (cane, crutches, etc.) once your strength and confidence allow. 7. You may wind energy engineer the shower and let water strike your incision when you arrive home at least once daily. Do not take a tub bath, sit in a hot tub or go into a swimming pool until after your first recheck in the office. SPECIAL CARE INSTRUCTIONS: VERY IMPORTANT TO READ AND REVIEW A. Your surgical incision has been closed with a cosmetic suture under the skin that will dissolve in about 6 weeks. In 14 days, you can use a pair of clean scissors and cut the suture that is left outside of the skin at the ends of your incision. 1. The small skin tapes can be removed 7 days after surgery if they have not fallen off by that point. 2. You may keep the wound open to air as much as possible to promote healing after post-op day number 5 unless told otherwise by your doctor. 3. If you think the wound looks like it is becoming infected (redness or worsening drainage) and/or you are experiencing fever, chill or worsening back pain and muscle spasms, contact the office so that we may evaluate you as soon as possible. B. Complications are uncommon, but please contact us if you have any signs or symptoms of: 1. wound infection (fever higher than 102.5 degrees F, redness, separation of wound, drainage, or increasing pain from the incision) 2. blood clots in legs (pain, swelling, redness and warmth in legs) 3. urinary tract infection (fever higher than 102.5 degrees F, burning upon urination or increased frequency of urination) 4. nerve problems (inability to walk on your toes or heels, numbness, loss of bowel or bladder control) 5. any other symptoms that concern you C. Please call the office at if you have any concerns or questions about your operation or recovery. D. No smoking! Smoking drastically decreases the chance of a solid fusion. E. Do not take any anti-inflammatory medications (Indocin, Advil, Motrin, Aspirin, Naprosyn, etc.) as these may inhibit the chance of a solid fusion. Tylenol is okay to take for pain. MANAGING PAIN AFTER SPINAL SURGERY 1. Narcotic medication is intended for short-term use and will be provided for surgical pain. Surgical pain usually lasts for a period of 4-6 weeks. Narcotic medication includes Percocet, Vicodin, Darvocet, Tylenol #3 or Lortab. 2. Longer-term pain is more appropriately treated with non-narcotic medication such as Tylenol ES. 3. Muscle spasm is not appropriately treated with narcotics. Muscle relaxers such as Soma, Flexeril or Skelaxin can be used along with Tylenol ES. 4. Remember that we all live with some "aches and pains". This is not unusual or uncommon after an injury or as we get older. a. Back pain is expected and may include muscle spasms for 4 to 6 weeks after surgery. The pain should gradually improve. If the pain worsens for no apparent reason, please contact the office. b. Intermittent leg pain may also be experienced and should not be concerned about unless it worsens for no apparent reason. If so, please contact the office. 5. We will provide appropriate medication within the normal guidelines of their prescribed use. We will also be very cautious and aware of potential abuse and extended duration of patients' medication needs. a. Pain medications are for your comfort and to assist with sleep and rest so that the tissue can heal. They are not provided in order to return to normal activity and should not be used through the day. To do so or worsening pain at night can result from ongoing tissue damage and development of tolerance to the prescribed medicine. 6. Please allow 2-3 days to process refills. Prescriptions will not be mailed but must be picked up at the office. FOLLOW UP VISIT: Keep your scheduled follow-up appointment. Any questions, please call the office at . Pending Studies at Discharge: No Stand-Alone Forms: My Function Space, Smoking Cessation Medications and DC Order Prescriptions: New tramadol 50 mg tablet 50 mg PO Q6H PRN (Reason: pain, moderate) Qty: 30 0RF oxycodone 5 mg tablet 5 mg PO Q6H PRN (Reason: pain) Qty: 30 0RF Continued lisinopril 5 mg tablet 5 mg PO QAM diclofenac sodium [Voltaren Arthritis Pain] 1 % gel 2 g topical QID PRN (Reason: Pain) Rx Instructions: apply to single elbow, wrist or hand; for hand includes palm/fingers/back of hand methocarbamol 500 mg tablet 500 mg PO BID PRN (Reason: Muscle Pain) Simponi 100 mg/mL pen injector 100 mg subcut UD Rx Instructions: once injection every 8 weeks pantoprazole [Protonix] 40 mg tablet,delayed release (DR/EC) 40 mg PO QAM levothyroxine 50 mcg tablet 50 mcg PO QAM potassium 99 mg Tablet 99 mg PO QAM pramipexole 1 mg tablet 1 - 3 mg PO HS topiramate 50 mg tablet 50 - 100 mg PO BID Rx Instructions: 2 tablets QAM and 1 tablet HS hydroxychloroquine 200 mg tablet 200 mg PO QAM cholecalciferol (vitamin D3) [Vitamin D3] 50 mcg (2,000 unit) Tablet 200 mcg PO QAM Patient Comments: taking 10,000 units Q2D, taking 8000 units opposite days of the 10,000 units folic acid 1 mg Tablet 1 mg PO QAM prednisone 10 mg tablet 10 - 20 mg PO UD PRN (Reason: RA flares) fexofenadine 180 mg Tablet 180 mg PO QAM duloxetine 60 mg capsule,delayed release(DR/EC) 60 mg PO QAM hydrochlorothiazide 12.5 mg tablet 12.5 mg PO DAILY PRN (Reason: swelling of legs) azelastine 137 mcg (0.1 %) Aerosol,[place] 1 spray INTRANASAL QAM Rx Instructions: administer into each nostril estradiol 0.01 % (0.1 mg/gram) cream 0.5 appful VAGINAL Q3D Saline Nasal Mist 0.65 % Aerosol,[place] 1 spray INTRANASAL QID PRN (Reason: Congestion) guaifenesin 1,200 mg Tablet Extended Release 12hr 1,200 mg PO BID PRN (Reason: congestion/allergy symptoms) escitalopram oxalate [Lexapro] 10 mg Tablet 10 mg PO DAILY Discontinued indomethacin 25 mg capsule 25 mg PO UD Rx Instructions: take 2 capsules in the morning with food,1 capsule at lunch with food and 2 capsules in evening with food Discharge Orders: Discharge Order (Routine); Ordered 07/27/23 Ordered By: Joel Davidson Admission Data Admit Date/Time: 07/25/23 10:19 Attending Provider: Joel Davidson Admit Provider: Joel Davidson Primary Care Provider: Cesar Haq. Other Providers: Alisa Luis; Goyo Mathew
--- NOTE | 2023-07-27 13:28 | Hospitalist Progress Note ---
Date of Service July 27, 2023 Assessment & Plan (1) Neurogenic claudication due to lumbar spinal stenosis: Plan: POD#2 L3-4. L4-5 Decompression and fusion by Dr. 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 We will follow the patient with you during their hospital stay. You can reach a member of the [facility] Hospitalist Team 13/09 via hospitalist role on tiger text. A total of 40 minutes was spent coordinating, documenting, and providing care for this patient excluding time spent in the performance of separately billed services. This included personally viewing all current laboratories and imaging studies, medication reconciliation, outpatient chart review, and discussion with specialists. Admission and Anticipated Discharge Date Admission Date: July 25, 2023 Supervising Physician Co-Signing Physician Notes Patient not seen by me Discussed with Advanced Practitioner Subjective Patient was seen and examined in room 306. Follow up lumbar surgery. She had a small bowel movement. She is passing flatus. Denies f/c/s, chest pain, sob, n/v/d. She is being discharged home today. Review of Systems Review of Systems: All systems reviewed & are unremarkable except as noted in HPI & below Physical Exam Physical Exam: Gen: WD/WN, NAD, A&O x3 HEENT: Normocephalic, atraumatic, conjunctivae moist, sclerae anicteric, mucous membranes moist. Lung: Clear to Auscultation bilaterally, no wheezes/rales/rhonchi Heart: Regular rate, regular rhythm, no murmurs, rubs, or gallops Abdomen: Soft, NT, ND +BS x 4 Extremities: No edema, lumbar dressing CDI, dedrick drain with sersosang drainage Skin: Warm, no rash, negative turgor. Results & Data Results & Data Vital Signs (Past 12 Hours) Vital Signs Temp Pulse Resp BP Pulse Ox O2 Del Method 07/27/23 07:23 36.9 C 81 16 94/62 L 98 Room Air Medications Administered Current Inpatient Medications Acetaminophen (Acetaminophen 500 Mg Tab) 1,000 mg PO Q8H PRN PRN Reason: MILD Pain Scale 1,2,3 & Pre PT Stop: 08/24/23 11:19 Al Hydrox/Mg Hydrox/Simethicone (Aluminum/Magnesium Susp 30 Ml Udc) 30 ml PO Q6H PRN PRN Reason: Dyspepsia Stop: 08/24/23 11:19 Azelastine HCl (Azelastine Hcl 0.1% Nasal 200 Sprays/27,400 Mcg Btl) 1 sprays NA QAM [facility] Stop: 08/25/23 08:59 Last Admin: 07/27/23 08:02 Dose: 1 sprays Bisacodyl (Bisacodyl 5 Mg Tabec) 10 mg PO DAILY PRN PRN Reason: Constipation Stop: 08/24/23 16:21 Diphenhydramine HCl (Diphenhydramine Capsule 25 Mg Cap) 25 mg PO Q6H PRN PRN Reason: Allergic Rhinitis/Insomnia Stop: 08/24/23 11:19 Duloxetine HCl (Duloxetine Hcl 60 Mg Cap) 60 mg PO QAM [facility] Stop: 08/25/23 08:59 Last Admin: 07/27/23 08:03 Dose: 60 mg Escitalopram Oxalate (Escitalopram Oxalate 10 Mg Tab) 10 mg PO DAILY [place] Stop: 08/25/23 08:59 Last Admin: 07/27/23 08:03 Dose: 10 mg Famotidine (Famotidine 20 Mg Tab) 20 mg PO Q12H PRN PRN Reason: Dyspepsia Stop: 08/24/23 11:19 Fexofenadine HCl (Fexofenadine Hcl 180 Mg Tab) 180 mg PO QAM [facility] Stop: 08/25/23 08:59 Last Admin: 07/27/23 08:03 Dose: 180 mg Folic Acid (Folic Acid 1 Mg Tab) 1 mg PO QAM [facility] Stop: 08/25/23 08:59 Last Admin: 07/27/23 08:03 Dose: 1 mg Hydromorphone HCl (Hydromorphone Inj 0.5 Mg/0.5 Ml Syr) 0.5 mg IV Q3H PRN PRN Reason: MODERATE Pain (Scale 4,5,6) & Pre PT Stop: 08/08/23 11:19 Hydromorphone HCl (Hydromorphone Inj 1 Mg/Ml Syringe) 1 mg IV Q3H PRN PRN Reason: SEVERE Pain (Scale 7,8,9,10) Stop: 08/08/23 11:19 Hydroxyzine HCl (Hydroxyzine Hcl 25 Mg Tab) 25 mg PO Q8H PRN PRN Reason: Anxiety Stop: 08/24/23 11:19 Promethazine HCl 12.5 mg/ (Sodium Chloride) 50.5 mls @ 202 mls/hr IV Q6H PRN PRN Reason: Nausea &/or Vomiting Stop: 08/24/23 11:19 Lorazepam 0.5 mg/ Syringe 0.5 mls @ 2 mls/min IV Q8H PRN; Protocol PRN Reason: Sedation/Anxiety Stop: 08/24/23 11:19 Dexamethasone 6 mg/ Syringe 1.5 mls @ 1 mls/min IV DAILY [facility] Stop: 07/28/23 09:02 Last Admin: 07/27/23 08:03 Dose: 1 mls/min Influenza Virus Vaccine Quadrival (Do Not Administer Flu Vaccine) 1 each N/A PRN PRN PRN Reason: Notification Stop: 08/24/23 11:19 Ketorolac Tromethamine (Ketorolac 30 Mg/Ml Vial) 30 mg IV Q6H PRN PRN Reason: Moderate Pain (Scale 4, 5, 6) Stop: 07/30/23 16:04 Last Admin: 07/26/23 12:24 Dose: 30 mg Levothyroxine Sodium (Levothyroxine Sodium 50 Mcg Tablet) [facility] Stop: 08/25/23 06:29 Last Admin: 07/27/23 06:07 Dose: 50 mcg Lorazepam (Lorazepam 0.5 Mg Tab) 0.5 mg PO Q8H PRN PRN Reason: Sedation/Anxiety Stop: 08/24/23 11:19 Magnesium Hydroxide (Magnesium Hydroxide Susp 30 Ml Udc) 30 ml PO Q24H PRN PRN Reason: Constipation Stop: 08/24/23 11:19 Metoclopramide HCl (Metoclopramide Hcl Inj 5 Mg/Ml 2 Ml Vial) 10 mg IV Q6H PRN PRN Reason: Nausea &/or Vomiting Stop: 08/24/23 11:19 Miscellaneous (Estradiol ~ Order Awaiting Action) 1 each N/A QS [place] Stop: 08/24/23 15:59 Last Admin: 07/27/23 06:53 Dose: Not Given Naloxone HCl (Naloxone Hcl 0.4 Mg/1 Ml Vial/Carp) 0.1 mg IV Q5M PRN PRN Reason: Oversedation/Resp depression Stop: 08/24/23 11:19 Ondansetron HCl (Ondansetron Inj 2 Mg/Ml 2 Ml Vial) 4 mg IV Q6H PRN PRN Reason: Nausea &/or Vomiting Stop: 08/24/23 11:19 Ondansetron HCl (Ondansetron 4 Mg Od Tab) 4 mg PO Q6H PRN PRN Reason: Nausea Stop: 08/24/23 11:19 Oxycodone HCl (Oxycodone Hcl Ir 5 Mg Tab (Immediate Release)) 5 - 10 mg PO Q4H PRN PRN Reason: Pain & Pre PT Stop: 08/08/23 11:19 Last Admin: 07/27/23 01:56 Dose: 5 mg Pantoprazole Sodium (Pantoprazole 40 Mg Tab) 40 mg PO QAM [facility] Stop: 08/25/23 08:59 Last Admin: 07/27/23 08:03 Dose: 40 mg Pneumococcal Polyvalent Vaccine (Do Not Administer Pneumococcal Vaccine) 1 each N/A PRN PRN PRN Reason: Notification Stop: 08/24/23 11:19 Polyethylene Glycol (Polyethylene (Miralax) 17 Gm Pack) 17 gm PO DAILY [place] Stop: 08/26/23 08:59 Last Admin: 07/27/23 08:02 Dose: 17 gm Pramipexole Dihydrochloride (Pramipexole Dihydrochlo 0.5 Mg Tab) 2 mg PO HS [facility] Stop: 08/24/23 20:59 Last Admin: 07/26/23 20:55 Dose: 2 mg Sodium Biphosphate/Sodium Phosphate (Sod Phosphate/Sod Biphosphate Enema 132 Ml Btl) 132 ml HI ONE PRN PRN Reason: Constipation Stop: 08/24/23 11:19 Sodium Chloride (Sodium Chloride 0.65% Na Soln 45 Ml ([place])) 1 sprays NA QID PRN PRN Reason: Congestion Stop: 08/24/23 11:19 Topiramate (Topiramate 50 Mg Tab) [facility] [place] 08/25/23 08:59 Last Admin: 07/27/23 08:03 Dose: 100 mg Topiramate (Topiramate 50 Mg Tab) 50 mg PO [facility] Stop: 08/24/23 20:59 Last Admin: 07/26/23 20:57 Dose: 50 mg Tramadol HCl (Tramadol Hcl 50 Mg Tablet) 50 - 100 mg PO Q4H PRN PRN Reason: Moderate-Severe pain & Pre PT Stop: 08/24/23 11:19 Last Admin: 07/27/23 08:04 Dose: 50 mg Vitamin D (Cholecalciferol 125 Mcg (5,000 Units) Tab) 125 [facility]cg [facility] [place] Stop: 08/25/23 08:59 Last Admin: 07/27/23 08:03 Dose: 125 mcg
== END 2023-07-27 17:28 | disposition home or self-care (01) | DRG 454 ==
LOC: ASU 06:05 → 3E 10:19